=== PATIENT | female | born 1985 | race Caucasian/White ===

== ENCOUNTER → 2016-11-13 | Outpatient (CLI) | payer OTHER ==
[~2016-11-13] MED LIST: IMT100 PO; OMEP20CA9 PO; TOPI200T20 PO; ULT/50 PO; VERA1TAB52 PO
--- NOTE | 2016-11-13 09:49 | DIAGNOSTIC IMAGING REPORT ---
MRI OF THE RIGHT ANKLE CLINICAL HISTORY: Right ankle twisting injury. COMPARISON STUDY: Radiographs of the right ankle dated 01/21/2007. TECHNIQUE: MRI of the right ankle was performed utilizing various T1 and T2-weighted sequences in the axial, sagittal, and coronal planes. IV contrast was not administered for this examination. Note that interpretation is suboptimal without current plain film correlate. FINDINGS: Normal marrow signal intensity is preserved throughout the visualized bony structures. There is no MRI evidence of fracture. There is no osteochondral defect seen in the talar dome. No joint effusion is seen. There is maintenance of normal fat within the sinus tarsi. The Achilles tendon is normal in morphology and signal intensity. There is trace fluid seen around the Achilles tendon. The anterior, posterior, and peroneal tendons are preserved. There is age indeterminant tearing of the anterior tibiofibular and anterior talofibular ligaments. Mild soft tissue edema is seen overlying the lateral aspect of the ankle. Visualized portions of the plantar fascia are normal in morphology and signal intensity. The deltoid and spring ligaments are normal as imaged. A tiny bone island is incidentally noted in the talus. IMPRESSION: 1. There is age indeterminant tearing of the anterior tibiofibular and anterior talofibular ligaments. Correlate clinically for evidence of high ankle sprain. Mild overlying soft tissue edema is noted. 2. The Achilles tendon is normal in morphology and signal intensity. There is trace fluid around the distal Achilles tendon suggesting mild paratenonitis. Clinical correlation will be required. 3. There is no MRI evidence of fracture. Dictated: 11/13/2016 9:08 AM Transcribed: 11/13/2016 9:49 AM Rebeca Electronically signed by: Oziel Pineda M.D. 11/13/2016 9:54 AM Dictated Date/Time: 11/13/2016 9:08 AM
== END | disposition home or self-care (01) ==
LOC: C.MRI 07:28
PROVIDERS: ATTEND Podiatrist Foot & Ankle Surgery
DX: S93.402D Sprain of unspecified ligament of left ankle, subsequent encounter (principal); X58.XXXD Exposure to other specified factors, subsequent encounter

== ENCOUNTER → 2017-10-16 | Outpatient (CLI) | payer OTHER | END | disposition home or self-care (01) | LOC: C.LABSPEC 17:28 | PROVIDERS: ATTEND Internal Medicine | DX: J02.9 Acute pharyngitis, unspecified (principal) ==

== ENCOUNTER 2021-02-07 19:54 | Observation (INO) ==
[2021-02-07] MEDS ORDERED: DROPERIDOL 5 MG/2 ML VIAL IV STA (21:27)
[2021-02-07] MEDS ORDERED: diphenhydrAMINE 50 MG/ML VIAL IV STA (21:27)
[2021-02-07] MEDS ORDERED: MAGNESIUM SULFATE / D5W 1 GM/100 ML BAG IV STA (21:28)
[2021-02-07] MEDS ORDERED: SODIUM CHLORIDE 0.9% 1000ML 1,000 ML IV ONE (21:28)
[2021-02-07] MEDS ORDERED: ACETAMINOPHEN 1,000 MG/100 ML VIAL IV STA (21:28)
[2021-02-07 22:11] LABS: Basophils # (auto) 0.01 K/uL (0-0.2); Basophils % (auto) 0.1 %; Eosinophils # (auto) 0.22 K/uL (0-0.5); Eosinophils % (auto) 2.7 %; Hematocrit (blood only) 37.3 % (37-47); Hemoglobin 11.6 g/dL (12.0-16.0); Immature Granulocytes # (auto) 0.02 K/uL (0.00-0.02); Immature Granulocytes % (auto) 0.2 %; Lymphocytes # (auto) 2.23 K/uL (1.2-3.4); Lymphocytes % (auto) 27.3 %; Mean Corpuscular Hemoglobin 23.6 pg (25-34); Mean Corpuscular Hgb Conc 31.1 g/dL (32-36); Mean Corpuscular Volume 75.8 fL (80-100); Mean Platelet Volume 10.2 fL (7.4-10.4); Monocytes # (auto) 0.57 K/uL (0.11-0.59); Neutrophils # (auto) 5.13 K/uL (1.4-6.5); Neutrophils % (auto) 62.7 %; Platelet Count 356 K/uL (130-400); RDW Coefficient of Variation 16.7 % (11.5-14.5); RDW Standard Deviation 46.9 fL (36.4-46.3); Red Blood Count 4.92 M/uL (4.2-5.4); White Blood Count 8.18 K/uL (4.8-10.8)
[2021-02-07 22:24] LABS: Pregnancy Test, Serum Negative (Negative)
[2021-02-07 22:35] LABS: Albumin Level 3.6 gm/dl (3.4-5.0); BUN Creatinine Ratio 11.3 (10-20); Calcium 8.6 mg/dl (8.5-10.1); Creatinine Clr Calc Pharmacy 105.3 ml/min; Est GFR (Non-African American) 70.7 ml/min; Potassium 3.2 mmol/L (3.5-5.1)
[2021-02-07 22:41] LABS: Appearance Urine Cloudy (Clear); Bacteria Urine Automated 1+ (Negative); Bilirubin Urine Negative (Negative); Blood Urine Negative (Negative); Color Urine Yellow; Epithelial Cell Urine Auto >30 /lpf (0-5); Glucose Urine UA Negative (Negative); Ketones Urine Trace (Negative); Leukocyte Esterase Urine Trace (Negative); Nitrite Urine Negative (Negative); Protein Urine Negative (Negative); Specific Gravity Urine 1.021 (1.000-1.030); Urobilinogen Urine Negative (Negative); WBC Urine Automated >30 /hpf (0-5)
[2021-02-07] MEDS ORDERED: HYDROmorphone INJ 1 MG/ML SYRINGE IV PRN (22:45)
[2021-02-07 22:53] LABS: Albumin Globulin Ratio 0.9 (0.9-2); Bilirubin,Total 0.2 mg/dl (0.2-1); Globulin 3.8 gm/dl (2.5-4.0); Total Protein 7.4 gm/dl (6.4-8.2)
[2021-02-07] MEDS ORDERED: OPTIRAY 320 100ml IV ONE (22:53)
[2021-02-07 23:00] LABS: RBC Urine Automated 0-4 /hpf (0-4)
[2021-02-07] MEDS ORDERED: POTASSIUM CHLORIDE CRTAB 20 MEQ TABCR PO STA (23:11)
[2021-02-07] MEDS ORDERED: cefTRIAXone SODIUM 2,000 MG/70 ML BAG IV STA (23:11)
[2021-02-07] MEDS ORDERED: ONDANSETRON INJ 2 MG/ML 2 ML VIAL IV STA (23:12)
--- NOTE | 2021-02-08 00:40 | Emergency Department Note ---
Impression & Plan Intractable right upper quadrant abdominal pain ED Provider Note NAME: ERIBERTO SOL AGE: 35 SEX: F : 1985 ARRIVES VIA: Walk-In INFORMANT: Patient, ED PROVIDER(S): Abram Gifford MD CHIEF COMPLAINT: Right upper quadrant pain HPI: This is a 35-year-old female who presents emergency department complaining of right upper quadrant abdominal pain. The patient was here proximally 1 week ago and had a CAT scan the abdomen pelvis. She was following this up with a right upper quadrant abdominal ultrasound today. The patient reports that she has had consistent unremitting right upper quadrant abdominal pain since 1 week ago. She has been taking oxycodone without relief of the pain. She describes the pain as a burning sensation. With radiation into her back. ROS: See above HPI for pertinent positives & negatives. A total of 10 systems reviewed and were otherwise negative. PAST MEDICAL HISTORY: See Below PAST SURGICAL HISTORY: See Below FAMILY HISTORY: See Below SOCIAL HISTORY: See Below HOME MEDICATIONS: See Below ALLERGIES: See Below VITALS: See Below PHYSICAL EXAMINATION: VITAL SIGNS - Vital signs and nursing notes were reviewed. GENERAL - 35-year-old female appearing stated age who is in no acute distress. Communicates well with provider and answers questions appropriately. SKIN - Without rashes. HEAD - NC/AT. EYES - PERRL with EOMI bilaterally. Sclera anicteric. Palpebral conjunctiva pink and moist with no injection noted. EARS - No deformities of external structures noted on gross examination bilaterally. NOSE - Midline and without cyanosis. No epistaxis or purulent drainage noted. Septum midline without deviation or septal hematoma noted. MOUTH/OROPHARYNX - Without perioral cyanosis. Buccal mucosa pink and moist and without leukoplakia. Tongue midline with equal elevation of palate bilaterally. No tonsillar hypertrophy, erythema, or exudates noted. NECK - Neck with FROM. Supple to palpation. No nuchal rigidity. LUNGS - Chest wall symmetric without accessory muscle use, intercostals retractions, or central cyanosis. Normal vesicular breath sounds CTA B/L. No wheezes, rales, or rhonchi appreciated. CARDIAC - RRR with S1/S2. No murmur, rubs, or gallops appreciated. ABDOMEN - Abdominal contour BS normoactive all four quadrants. Pt c/o RUQ abd pain EXTREMITIES - No clubbing or peripheral cyanosis. No pretibial edema present. +3/5 radial, posterior tibial, and dorsalis pedis pulses palpated throughout. +5/5 strength noted in UE/LE bilaterally. NEUROLOGIC - Cranial nerves II through XII grossly intact. Sensory intact to light touch throughout. Patellar reflexes +2/4. PSYCH - A&Ox3 and cooperates fully with examiner. Pt is very pleasant and interacts well with examiner. MEDICAL DECISION MAKING: Patient was seen and evaluated as above in room A4. Review was performed of nursing notes and vital signs. I did review pertinent previous visits and patient history. After obtaining a thorough history and physical examination the above work up was performed. This is a 35-year-old female who presents emergency department complaining of right upper quadrant abdominal pain. Patient is tender in the right upper quadrant. She was sent here by her PCP. She was given Dilaudid here for her pain. She does not have an elevation in her white blood cell count. I did discuss the case with the hospitalist service who did agree to admit the patient. Patient and mother in agreement with treatment plan. An order was placed for continuous cardiac monitoring. The monitor shows a rate of 61 with Normal SInus rhythm. The patient was evaluated during a period of high volume and high acuity during the global COVID-19 pandemic, and that diagnosis was suspected/considered upon their initial presentation. Their evaluation, treatment and testing was consistent with current guidelines for patients who present with complaints or symptoms that may be related to COVID-19. Patient was seen while provider was wearing PPE. Triage Nursing notes reviewed. Prior medical records reviewed Vital Signs: reviewed and remarkable for no significant abnormalities Differential diagnosis: Appendicitis, ovarian cyst, ovarian torsion, ectopic , TOA, PID, infections, diverticulitis, UTI, obstruction, mesenteric ischemia, aortic pathology, inflammatory bowel disease, renal colic, PUD, pancreatitis, biliary pathology, hernia, volvulus, constipation, as well as other pathologies. ER treatment provided: See below Laboratory studies: As stated above and show below. Imaging studies: CT abdomen pelvis with contrast: Normal appendix. No acute abnormality along the GI tract. Hepatic steatosis and hepatomegaly. Gallbladder pancreas and spleen are unremarkable. No renal or ureteral stones. Right ovarian cyst measuring 2.5 cm trace physiologic free fluid. Consultation(s): Internal Medicine Past Med/Surg History Medical History Esophageal reflux Kidney stones Migraine headache Migraine without aura, not intractable, without status migrainosus Surgical History History of adenoidectomy History of ankle surgery History of esophagogastroduodenoscopy S/P colonoscopy S/P tonsillectomy S/P tooth extraction Family History Father No family history of bleeding disorder ? of bleeding disorder. Also had to have nose cauterized in the past Mother Asthma Grandfather (Paternal) Hypertension Grandmother (Paternal) Hypertension Breast cancer Paternal great grandmother Heart disease Grandfather (Paternal) Stroke Paternal great grandfather Family/Other Heart disease Paternal niece Other No family history of adverse response to anesthesia No pertinent family history Social History Smoking Status: Never smoker Second Hand Exposure: Yes; Hx Alcohol Use: Yes Alcohol Intake Frequency: Monthly or Less Hx Substance Use: No Preferred Language: Lao Communication Ability: Effective Point Of [employer] Associate Required: No Beliefs That Will Affect Care: None marital status: Single Current Living Situation: Alone current occupational status: employed 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[employer] [facility] Feels Safe at Home: Yes Assistive Devices: None Allergies Allergies Allergy/AdvReac Type Severity Reaction Status Date / Time pregabalin [From Lyrica] Allergy Intermediate Hives Verified 02/07/21 21:54 codeine AdvReac Intermediate Nausea Verified 02/10/21 10:42 Root Beer Flavor Allergy Severe Severe Uncoded 02/07/21 21:54 oropharyngeal hives Home Meds Home Medications Medication Instructions Recorded Confirmed omeprazole 20 mg PO DAILY 10/14/18 02/07/21 ferrous sulfate 325 mg (65 mg 325 mg PO DAILY #30 tab 05/10/19 02/07/21 iron) tablet nabumetone 500 mg tablet 500 mg PO BID PRN #60 tab 05/10/19 02/07/21 Reyvow 100 mg PO DIRECTED PRN 02/01/21 02/07/21 Previous Rx's Medication Instructions Recorded tramadol 50 mg tablet 50 mg PO BID PRN 30 Days #10 tab 12/03/19 sumatriptan succinate 4 mg/0.5 mL 4 mg SUBCUT ONCE PRN #1 ml 07/26/20 subcutaneous pen injector doxepin 100 mg capsule 100 mg PO DAILY #30 cap 08/10/20 albuterol sulfate 90 mcg/actuation 2 puff INHALATION Q6H PRN #8.5 g 09/01/20 aerosol inhaler jnuanrfthu-tsdlhjqendolx-xycvjian 1 - 2 tab PO .COMPLEX PRN 30 Days 09/27/20 50 mg-325 mg-40 mg tablet #12 tab promethazine 25 mg tablet 25 mg PO TID PRN 30 Days #30 tab 09/27/20 fremanezumab-vfrm 225 mg/1.5 mL 675 mg SQ .COMPLEX 90 Days #4.5 ml 10/08/20 subcutaneous syringe hydrochlorothiazide 25 mg tablet 25 mg PO DAILY #30 tab 10/20/20 mupirocin 2 % topical ointment 1 applic TOPICAL BID #15 g 10/28/20 labetalol 100 mg tablet 100 mg PO BID #60 tab 12/01/20 doxepin 50 mg capsule 50 mg PO DAILY #30 cap 12/20/20 ondansetron HCl [Zofran] 4 mg PO Q6H PRN #10 tab 02/02/21 oxycodone 5 mg PO Q6 PRN #7 tab 02/02/21 potassium chloride 20 meq PO DAILY #7 tab 02/02/21 topiramate 200 mg tablet 200 mg PO BID 30 Days #60 tab 02/07/21 verapamil 240 mg tablet,extended 240 mg PO QAM 30 Days #30 tab 02/07/21 release oxycodone-acetaminophen 1 tab PO Q6H PRN #20 tab 02/11/21 Results & Data (ED) Vital Signs Vital Signs - 24 hr 02/07/21 19:55 02/07/21 21:27 02/07/21 21:54 Temperature 36.6 C Temperature Source Temporal Artery Scan Pulse Rate 79 Pulse Rate [Apical] Pulse Rate from SpO2 Sensor Pulse Rhythm [Apical] Respiratory Rate 16 18 Respiratory Depth Normal Blood Pressure 152/77 H Blood Pressure [Right Arm] 145/78 H Blood Pressure Mean 102 Blood Pressure Mean [Right Arm] 100 Blood Pressure Position Lying Pulse Oximetry 100 98 Oxygen Delivery Method Room Air Room Air Room Air Sepsis Recent Fever Within 48 Hours No Sepsis New/Unexplained Change in Mental Status No Sepsis Action Taken by Nursing No Action Required 02/07/21 23:30 02/07/21 23:50 02/08/21 00:00 Temperature Temperature Source Pulse Rate 61 60 Pulse Rate [Apical] 65 Pulse Rate from SpO2 Sensor 59 L 61 Pulse Rhythm [Apical] Regular Respiratory Rate 20 16 17 Respiratory Depth Normal Blood Pressure 123/66 120/77 Blood Pressure [Right Arm] 123/66 Blood Pressure Mean 85 91 Blood Pressure Mean [Right Arm] 85 Blood Pressure Position Pulse Oximetry 93 96 96 Oxygen Delivery Method Room Air Sepsis Recent Fever Within 48 Hours Sepsis New/Unexplained Change in Mental Status Sepsis Action Taken by Nursing Laboratory Data Result diagrams: 02/10/21 06:14 02/10/21 06:14 Lab Results 02/07/21 02/07/21 02/07/21 Range/Units 20:55 20:55 20:55 WBC 8.18 (4.8-10.8) K/uL RBC 4.92 (4.2-5.4) M/uL Hgb 11.6 L (12.0-16.0) g/dL Hct 37.3 (37-47) % MCV 75.8 L (80-100) fL MCH 23.6 L (25-34) pg MCHC 31.1 L (32-36) g/dL RDW Std Deviation 46.9 H (36.4-46.3) fL RDW Coeff of [place] 16.7 H (11.5-14.5) % Plt Count 356 (130-400) K/uL MPV 10.2 (7.4-10.4) fL Immature Gran % (Auto) 0.2 % Neut % (Auto) 62.7 % Lymph % (Auto) 27.3 % [place] % (Auto) 7.0 % Eos % (Auto) 2.7 % Baso % (Auto) 0.1 % Neut # (Auto) 5.13 (1.4-6.5) K/uL Lymph # (Auto) 2.23 (1.2-3.4) K/uL [place] # (Auto) 0.57 (0.11-0.59) K/uL Eos # (Auto) 0.22 (0-0.5) K/uL Baso # (Auto) 0.01 (0-0.2) K/uL Immature Gran # (Auto) 0.02 (0.00-0.02) K/uL Sodium 141 (136-145) mmol/L Potassium 3.2 L (3.5-5.1) mmol/L Chloride 108 H (98-107) mmol/L Carbon Dioxide 25 (21-32) mmol/L Anion Gap 8.0 (3-11) BUN 12 (7-18) mg/dl Creatinine 1.02 (0.6-1.2) mg/dl Est Cr Clr Drug Dosing 105.3 ml/min Est GFR ( Amer) 82.0 ml/min Est GFR (Non-Af Amer) 70.7 ml/min BUN/Creatinine Ratio 11.3 (10-20) Glucose 91 (70-99) mg/dl Calcium 8.6 (8.5-10.1) mg/dl Total Bilirubin 0.2 (0.2-1) mg/dl AST 26 (15-37) U/L ALT 35 (12-78) U/L Alkaline Phosphatase 71 (45-117) U/L Total Protein 7.4 (6.4-8.2) gm/dl Albumin 3.6 (3.4-5.0) gm/dl Globulin 3.8 (2.5-4.0) gm/dl Albumin/Globulin Ratio 0.9 (0.9-2) Lipase 110 (73-393) U/L HCG, Qual Negative (Negative) Urine Color Urine Appearance (Clear) Urine pH (4.5-7.5) Ur Specific [place] (1.000-1.030) Urine Protein (Negative) Urine Glucose (UA) (Negative) Urine Ketones (Negative) Urine Blood (Negative) Urine Nitrite (Negative) Urine Bilirubin (Negative) Urine Urobilinogen (Negative) Ur Leukocyte Esterase (Negative) Urine WBC (Auto) (0-5) /hpf Urine RBC (Auto) (0-4) /hpf U Hyaline Cast (Auto) (0-5) /lpf U Epithel Cells (Auto) (0-5) /lpf Urine Bacteria (Auto) (Negative) Urine Yeast COVID-19 Eval Order SARS-CoV-2 (PCR) (Negative) 02/07/21 02/07/21 02/07/21 Range/Units 20:55 23:25 23:25 WBC (4.8-10.8) K/uL RBC (4.2-5.4) M/uL Hgb (12.0-16.0) g/dL Hct (37-47) % MCV (80-100) fL MCH (25-34) pg MCHC (32-36) g/dL RDW Std Deviation (36.4-46.3) fL RDW Coeff of [place] (11.5-14.5) % Plt Count (130-400) K/uL MPV (7.4-10.4) fL Immature Gran % (Auto) % Neut % (Auto) % Lymph % (Auto) % [place] % (Auto) % Eos % (Auto) % Baso % (Auto) % Neut # (Auto) (1.4-6.5) K/uL Lymph # (Auto) (1.2-3.4) K/uL [place] # (Auto) (0.11-0.59) K/uL Eos # (Auto) (0-0.5) K/uL Baso # (Auto) (0-0.2) K/uL Immature Gran # (Auto) (0.00-0.02) K/uL Sodium (136-145) mmol/L Potassium (3.5-5.1) mmol/L Chloride (98-107) mmol/L Carbon Dioxide (21-32) mmol/L Anion Gap (3-11) BUN (7-18) mg/dl Creatinine (0.6-1.2) mg/dl Est Cr Clr Drug Dosing ml/min Est GFR ( Amer) ml/min Est GFR (Non-Af Amer) ml/min BUN/Creatinine Ratio (10-20) Glucose (70-99) mg/dl Calcium (8.5-10.1) mg/dl Total Bilirubin (0.2-1) mg/dl AST (15-37) U/L ALT (12-78) U/L Alkaline Phosphatase (45-117) U/L Total Protein (6.4-8.2) gm/dl Albumin (3.4-5.0) gm/dl Globulin (2.5-4.0) gm/dl Albumin/Globulin Ratio (0.9-2) Lipase (73-393) U/L HCG, Qual (Negative) Urine Color Yellow Urine Appearance Cloudy A (Clear) Urine pH 7.0 (4.5-7.5) Ur Specific [place] 1.021 (1.000-1.030) Urine Protein Negative (Negative) Urine Glucose (UA) Negative (Negative) Urine Ketones Trace H (Negative) Urine Blood Negative (Negative) Urine Nitrite Negative (Negative) Urine Bilirubin Negative (Negative) Urine Urobilinogen Negative (Negative) Ur Leukocyte Esterase Trace H (Negative) Urine WBC (Auto) >30 H (0-5) /hpf Urine RBC (Auto) 0-4 (0-4) /hpf U Hyaline Cast (Auto) 1-5 (0-5) /lpf U Epithel Cells (Auto) >30 H (0-5) /lpf Urine Bacteria (Auto) 1+ H (Negative) Urine Yeast Not Reportable COVID-19 Eval Order Covid19 at [facility] SARS-CoV-2 (PCR) NEGATIVE (Negative) 02/09/21 02/09/21 Range/Units 06:34 06:34 WBC 5.77 (4.8-10.8) K/uL RBC 4.29 (4.2-5.4) M/uL Hgb 10.2 L (12.0-16.0) g/dL Hct 32.8 L (37-47) % MCV 76.5 L (80-100) fL MCH 23.8 L (25-34) pg MCHC 31.1 L (32-36) g/dL RDW Std Deviation 47.4 H (36.4-46.3) fL RDW Coeff of [place] 16.9 H (11.5-14.5) % Plt Count 253 (130-400) K/uL MPV 9.7 (7.4-10.4) fL Immature Gran % (Auto) 0.2 % Neut % (Auto) 53.4 % Lymph % (Auto) 36.7 % [place] % (Auto) 6.9 % Eos % (Auto) 2.6 % Baso % (Auto) 0.2 % Neut # (Auto) 3.08 (1.4-6.5) K/uL Lymph # (Auto) 2.12 (1.2-3.4) K/uL [place] # (Auto) 0.40 (0.11-0.59) K/uL Eos # (Auto) 0.15 (0-0.5) K/uL Baso # (Auto) 0.01 (0-0.2) K/uL Immature Gran # (Auto) 0.01 (0.00-0.02) K/uL Sodium 146 H (136-145) mmol/L Potassium 4.3 D (3.5-5.1) mmol/L Chloride 120 H (98-107) mmol/L Carbon Dioxide 19 L (21-32) mmol/L Anion Gap 7.0 (3-11) BUN 9 (7-18) mg/dl Creatinine 0.85 (0.6-1.2) mg/dl Est Cr Clr Drug Dosing 126.3 ml/min Est GFR ( Amer) 102.2 ml/min Est GFR (Non-Af Amer) 88.2 ml/min BUN/Creatinine Ratio 10.2 (10-20) Glucose 83 (70-99) mg/dl Calcium 7.6 L (8.5-10.1) mg/dl Total Bilirubin 0.2 (0.2-1) mg/dl AST 16 (15-37) U/L ALT 26 (12-78) U/L Alkaline Phosphatase 55 (45-117) U/L Total Protein 5.8 L D (6.4-8.2) gm/dl Albumin 2.9 L (3.4-5.0) gm/dl Globulin 2.9 (2.5-4.0) gm/dl Albumin/Globulin Ratio 1.0 (0.9-2) Lipase (73-393) U/L HCG, Qual (Negative) Urine Color Urine Appearance (Clear) Urine pH (4.5-7.5) Ur Specific [place] (1.000-1.030) Urine Protein (Negative) Urine Glucose (UA) (Negative) Urine Ketones (Negative) Urine Blood (Negative) Urine Nitrite (Negative) Urine Bilirubin (Negative) Urine Urobilinogen (Negative) Ur Leukocyte Esterase (Negative) Urine WBC (Auto) (0-5) /hpf Urine RBC (Auto) (0-4) /hpf U Hyaline Cast (Auto) (0-5) /lpf U Epithel Cells (Auto) (0-5) /lpf Urine Bacteria (Auto) (Negative) Urine Yeast COVID-19 Eval Order SARS-CoV-2 (PCR) (Negative) Administered Medications Discontinued Medications Bacitracin (Bacitracin Oint 15 Gm Tube) Confirm Administered Dose 45 appln .ROUTE .STK-MED ONE Stop: 02/10/21 07:22 Last Admin: 02/10/21 08:24 Dose: 45 appln Documented by: [id number] Bupivacaine HCl (Bupivacaine 0.5 % 5 Mg/1 Ml Mpf 30ml Vial) Confirm Administered Dose 30 ml .ROUTE .STK-MED ONE Stop: 02/10/21 07:22 Last Admin: 02/10/21 08:25 Dose: 20 ml Documented by: [id number] Cefazolin Sodium (Cefazolin 2,000 Mg/15 Ml Iv Push) Confirm Administered Dose 2,000 mg IV .STK-MED ONE Stop: 02/10/21 07:36 Last Admin: 02/10/21 07:46 Dose: 2,000 mg Documented by: [id number] Diphenhydramine HCl (Diphenhydramine 50 Mg/Ml Vial) 50 mg IV NOW STA Stop: 02/07/21 21:28 Last Admin: 02/07/21 21:46 Dose: 50 mg Documented by: [id number] Doxepin HCl (Doxepin Hcl 50 Mg Capsule) 150 mg PO DAILY MEKA Stop: 03/10/21 08:59 Last Admin: 02/08/21 08:38 Dose: Not Given Documented by: [id number] Doxepin HCl (Doxepin Hcl 50 Mg Capsule) 150 mg PO HS MEKA Stop: 03/10/21 20:59 Last Admin: 02/10/21 21:23 Dose: 150 mg Documented by: [id number] Admin: 02/09/21 21:36 Dose: 150 mg Documented by: [id number] Admin: 02/08/21 20:31 Dose: 150 mg Documented by: [id number] Droperidol (Droperidol 5 Mg/2 Ml Vial) 1.25 mg IV ONE STA Stop: 02/07/21 21:28 Last Admin: 02/07/21 21:46 Dose: 1.25 mg Documented by: [id number] Fentanyl Citrate (Fentanyl Citrate 100 Mcg/2 Ml Vial) 50 mcg IV Q5M PRN PRN Reason: PACU Use Only-Pain Stop: 02/10/21 15:46 Last Admin: 02/10/21 09:52 Dose: 50 mcg Documented by: [id number] Ferrous Sulfate (Ferrous Sulfate 325 Mg Tab) 325 mg PO DAILY MEKA Stop: 03/13/21 08:59 Last Admin: 02/11/21 08:53 Dose: 325 mg Documented by: [id number] Hydrochlorothiazide (Hydrochlorothiazide 25 Mg Tab) 25 mg PO DAILY MEKA Stop: 03/13/21 08:59 Last Admin: 02/11/21 08:53 Dose: 25 mg Documented by: [id number] Hydromorphone HCl (Hydromorphone Inj 1 Mg/Ml Syringe) 1 mg IV Q15M PRN PRN Reason: Pain Stop: 02/21/21 22:44 Last Admin: 02/07/21 23:09 Dose: 1 mg Documented by: [id number] Magnesium Sulfate/Dextrose (Magnesium Sulfate / D5w) 1 gm in 100 mls @ 100 mls/hr IV NOW STA Stop: 02/07/21 22:27 Last Infusion: 02/07/21 22:51 Dose: 0 mls/hr Documented by: [id number] Admin: 02/07/21 21:46 Dose: 100 mls/hr Documented by: [id number] Acetaminophen (Ofirmev) 1,000 mg in 100 mls @ 400 mls/hr IV NOW STA Stop: 02/07/21 21:42 Last Infusion: 02/07/21 22:51 Dose: 0 mls/hr Documented by: [id number] Admin: 02/07/21 21:46 Dose: 400 mls/hr Documented by: [id number] Sodium Chloride (Nss 1000ml) 1,000 mls @ 999 mls/hr IV .Q1H1M ONE Stop: 02/07/21 22:28 Last Infusion: 02/07/21 22:52 Dose: 0 mls/hr Documented by: [id number] Admin: 02/07/21 21:45 Dose: 999 mls/hr Documented by: [id number] Ceftriaxone Sodium (Rocephin) 2,000 mg in 70 mls @ 140 mls/hr IV NOW STA Stop: 02/07/21 23:40 Last Infusion: 02/08/21 00:11 Dose: 0 mls/hr Documented by: [id number] Admin: 02/07/21 23:35 Dose: 140 mls/hr Documented by: [id number] Potassium Chloride/Sodium Chloride (Normal Saline W/20 Meq Kcl) 20 meq in 1,000 mls @ 125 mls/hr IV .Q8H MEKA Stop: 03/10/21 01:29 Last Infusion: 02/11/21 07:09 Dose: 0 mls/hr Documented by: [id number] Infusion: 02/09/21 16:44 Dose: 0 mls/hr Documented by: [id number] Infusion: 02/09/21 15:45 Dose: 0 mls/hr Documented by: [id number] Admin: 02/09/21 11:23 Dose: 125 mls/hr Documented by: [id number] Infusion: 02/09/21 11:23 Dose: 125 mls/hr Documented by: [id number] Admin: 02/09/21 09:48 Dose: 125 mls/hr Documented by: [id number] Infusion: 02/09/21 09:48 Dose: 0 mls/hr Documented by: [id number] Infusion: 02/09/21 08:45 Dose: 0 mls/hr Documented by: [id number] Admin: 02/09/21 02:48 Dose: 125 mls/hr Documented by: [id number] Infusion: 02/09/21 02:40 Dose: 0 mls/hr Documented by: [id number] Admin: 02/08/21 19:17 Dose: 125 mls/hr Documented by: [id number] Infusion: 02/08/21 19:17 Dose: 125 mls/hr Documented by: [id number] Admin: 02/08/21 11:48 Dose: 125 mls/hr Documented by: [id number] Infusion: 02/08/21 11:02 Dose: 125 mls/hr Documented by: [id number] Admin: 02/08/21 03:02 Dose: 125 mls/hr Documented by: [id number] Famotidine 20 mg/ Syringe 5 mls @ 2.5 mls/min IV Q12H MEKA Stop: 03/10/21 02:59 Last Admin: 02/11/21 05:21 Dose: 2.5 mls/min Documented by: [id number] Admin: 02/10/21 17:54 Dose: 2.5 mls/min Documented by: [id number] Admin: 02/10/21 05:47 Dose: 2.5 mls/min Documented by: [id number] Admin: 02/09/21 18:32 Dose: 2.5 mls/min Documented by: [id number] Admin: 02/09/21 05:57 Dose: 2.5 mls/min Documented by: [id number] Admin: 02/08/21 18:30 Dose: 2.5 mls/min Documented by: [id number] Admin: 02/08/21 03:03 Dose: 2.5 mls/min Documented by: [id number] Cefazolin Sodium (Ancef 3000mg) 72.5 mls @ 130 mls/hr IV PREOP ONE Stop: 02/10/21 08:06 Last Admin: 02/10/21 17:47 Dose: Not Given Documented by: [id number] Cefazolin Sodium (Ancef 1000mg) 1,000 mg in 7.5 mls @ 2.5 mls/min IV ONE ONE Stop: 02/10/21 11:02 Last Admin: 02/10/21 12:09 Dose: 2.5 mls/min Documented by: [id number] Lactated Ringer's (Lr) 1,000 mls @ 80 mls/hr IV .[id number] MEKA Stop: 02/10/21 23:29 Last Infusion: 02/11/21 02:07 Dose: 0 mls/hr Documented by: [id number] Admin: 02/10/21 13:18 Dose: 80 mls/hr Documented by: [id number] Ioversol (Optiray 320 100ml) 88 ml IV ONCE ONE Stop: 02/07/21 22:54 Last Admin: 02/07/21 22:53 Dose: 1 ml Documented by: [id number] Labetalol HCl (Labetalol Hcl 100 Mg Tab) 100 mg PO BID MEKA Stop: 03/10/21 08:59 Last Admin: 02/11/21 08:53 Dose: Not Given Documented by: [id number] Admin: 02/10/21 21:24 Dose: 100 mg Documented by: [id number] Admin: 02/10/21 12:07 Dose: 100 mg Documented by: [id number] Admin: 02/09/21 21:37 Dose: 100 mg Documented by: [id number] Admin: 02/09/21 10:34 Dose: 100 mg Documented by: [id number] Admin: 02/08/21 20:32 Dose: 100 mg Documented by: [id number] Admin: 02/08/21 08:36 Dose: 100 mg Documented by: [id number] Lidocaine HCl (Lidocaine Hcl 1% 20 Ml Vial) Confirm Administered Dose 20 ml .ROUTE .STK-MED ONE Stop: 02/10/21 07:22 Last Admin: 02/10/21 08:25 Dose: 20 ml Documented by: [id number] Morphine Sulfate (Morphine Sulfate 4 Mg/Ml 1 Ml Carp\Vial) 4 mg IV Q4H PRN PRN Reason: Severe Pain Stop: 02/23/21 16:38 Last Admin: 02/11/21 08:08 Dose: 4 mg Documented by: [id number] Admin: 02/11/21 00:34 Dose: 4 mg Documented by: [id number] Admin: 02/10/21 20:35 Dose: 4 mg Documented by: [id number] Admin: 02/10/21 16:33 Dose: 4 mg Documented by: [id number] Admin: 02/10/21 12:16 Dose: 4 mg Documented by: [id number] Admin: 02/10/21 01:56 Dose: 4 mg Documented by: [id number] Admin: 02/09/21 21:37 Dose: 4 mg Documented by: [id number] Admin: 02/09/21 17:36 Dose: 4 mg Documented by: [id number] Mupirocin (Mupirocin 2% Oint 22 Gm Tube) 1 appln EXT BID MEKA Stop: 03/12/21 20:59 Last Admin: 02/11/21 08:54 Dose: 1 appln Documented by: [id number] Admin: 02/10/21 21:24 Dose: 1 appln Documented by: [id number] Ondansetron HCl (Ondansetron Inj 2 Mg/Ml 2 Ml Vial) 4 mg IV NOW STA Stop: 02/07/21 23:13 Last Admin: 02/07/21 23:36 Dose: 4 mg Documented by: [id number] Ondansetron HCl (Ondansetron Inj 2 Mg/Ml 2 Ml Vial) 4 mg IV Q6H PRN PRN Reason: Nausea Stop: 03/10/21 02:09 Last Admin: 02/08/21 22:01 Dose: 4 mg Documented by: [id number] Admin: 02/08/21 15:45 Dose: 4 mg Documented by: [id number] Admin: 02/08/21 02:31 Dose: 4 mg Documented by: [id number] Ondansetron HCl (Ondansetron Inj 2 Mg/Ml 2 Ml Vial) 4 mg IV Q4H PRN PRN Reason: Nausea Stop: 03/10/21 02:09 Last Admin: 02/11/21 08:11 Dose: 4 mg Documented by: [id number] Admin: 02/11/21 00:34 Dose: 4 mg Documented by: [id number] Admin: 02/10/21 20:36 Dose: 4 mg Documented by: [id number] Admin: 02/10/21 16:32 Dose: 4 mg Documented by: [id number] Admin: 02/10/21 12:03 Dose: 4 mg Documented by: [id number] Admin: 02/10/21 01:56 Dose: 4 mg Documented by: [id number] Admin: 02/09/21 21:38 Dose: 4 mg Documented by: [id number] Ondansetron HCl (Ondansetron Inj 2 Mg/Ml 2 Ml Vial) 4 mg IV ONCE PRN PRN Reason: PACU Use Only-Nausea/Vomiting Stop: 02/10/21 15:46 Last Admin: 02/10/21 09:54 Dose: 4 mg Documented by: [id number] Pantoprazole Sodium (Pantoprazole 40 Mg Tab) 40 mg PO DAILY MEKA Stop: 03/13/21 08:59 Last Admin: 02/11/21 08:54 Dose: 40 mg Documented by: [id number] Potassium Chloride (Potassium Chloride Crtab 20 Meq Tabcr) 40 meq PO NOW STA Stop: 02/07/21 23:12 Last Admin: 02/07/21 23:36 Dose: 40 meq Documented by: [id number] Potassium Chloride (Potassium Chloride Crtab 20 Meq Tabcr) 20 meq PO DAILY MEKA Stop: 03/13/21 08:59 Last Admin: 02/11/21 08:54 Dose: 20 meq Documented by: [id number] Topiramate (Topiramate 100 Mg Tab) 200 mg PO BID MEKA Stop: 03/10/21 08:59 Last Admin: 02/11/21 08:54 Dose: 200 mg Documented by: [id number] Admin: 02/10/21 21:22 Dose: 200 mg Documented by: [id number] Admin: 02/10/21 12:08 Dose: 200 mg Documented by: [id number] Admin: 02/09/21 21:36 Dose: 200 mg Documented by: [id number] Admin: 02/09/21 10:35 Dose: 200 mg Documented by: [id number] Admin: 02/08/21 20:32 Dose: 200 mg Documented by: [id number] Admin: 02/08/21 08:36 Dose: 200 mg Documented by: [id number] Tramadol HCl (Tramadol Hcl 50 Mg Tablet) 50 mg PO Q6H PRN PRN Reason: headaches Stop: 03/10/21 02:09 Last Admin: 02/10/21 05:49 Dose: 50 mg Documented by: [id number] Admin: 02/08/21 20:32 Dose: 50 mg Documented by: [id number] Admin: 02/08/21 13:47 Dose: 50 mg Documented by: [id number] Verapamil HCl (Verapamil Hcl 240 Mg Tabcr) 240 mg PO QAM [facility] Stop: 03/10/21 08:59 Last Admin: 02/11/21 08:54 Dose: 240 mg Documented by: [id number] Admin: 02/10/21 12:08 Dose: 240 mg Documented by: [id number] Admin: 02/09/21 09:46 Dose: 240 mg Documented by: [id number] Admin: 02/08/21 08:36 Dose: 240 mg Documented by: [id number] Discharge Plan Visit Data Chief Complaint: Flank Pain Stated Complaint: PAIN IN RT SIDE, HERE LAST SUNDAY ED Provider: Abram Gifford Discharge Problem: Intractable right upper quadrant abdominal pain Patient Disposition: Admitted As Inpatient Condition: Good Discharge Instructions Interventions: ED Discharge Assessment Last Done: 02/08/21 01:48
--- NOTE | 2021-02-08 01:23 | History & Physical Report ---
Date of Service February 08, 2021 Assessment & Plan (1) Right sided abdominal pain: Right upper quadrant/right flank pain/nausea- Outpatient ultrasound suggested possible gallbladder sludge. CT abdomen pelvis negative. NPO except meds NSS + KCl 20 mEq 100 mils per hour Zofran 4 mg IV every 6 hours as needed HIDA scan ordered for the a.m. to assess gallbladder dysfunction. If gallbladder work-up was negative, may need to consider endoscopy Present on Admission?: Yes (2) Nausea: See above Present on Admission?: Yes (3) Esophageal reflux: GERD/history of acute peptic ulcer- Continue omeprazole Placed on famotidine 20 mg IV every 12 hours If gallbladder work-up was negative, may need to consider endoscopy to assess for esophagitis/gastritis/PUD Present on Admission?: Yes (4) Hypertension: Continue labetalol and verapamil Present on Admission?: Yes (5) Migraine without aura, not intractable, without status migrainosus: Continue as needed Fioricet, doxepin, topiramate and sumatriptan Hold oxycodone, and nabumetone Continue verapamil Continue as needed tramadol Present on Admission?: Yes (6) Acute peptic ulcer: See above Present on Admission?: Yes (7) Asthma exacerbation attacks: No acute symptoms Present on Admission?: Yes History of Present Illness Chief Complaint: The patient presents to the emergency department with 1 week of right upper quadrant and right flank pain Primary Care Provider: Grayson Diaz MD The patient is a 35-year-old female with a past medical history including hypertension, migraine without aura, GERD, kidney stones, peptic ulcer history, asthma, asthma exacerbation attacks, morbid obesity and kidney stones. Work-up in the emergency department included the following significant abnormalities: Hemoglobin 11.6 potassium 3.2 and negative COVID-[address] of abdomen pelvis Patient had a gallbladder ultrasound performed as an outpatient on the morning of 02/07 which showed the following: Suspect a small amount of gallbladder sludge, suspected hepatic steatosis, no calculi or ductal dilatation noted. CT of abdomen and pelvis with contrast performed in ED tonight: Normal appendix, no acute abnormality along the GI tract. Noted hepatic steatosis and hepatomegaly. Gallbladder, pancreas and spleen are unremarkable. No renal or ureteral stones. Right ovarian cyst measuring 2.5 cm Allergies Allergy/AdvReac Type Severity Reaction Status Date / Time pregabalin [From Lyrica] Allergy Intermediate Hives Verified 02/07/21 21:54 Root Beer Flavor Allergy Severe Severe Uncoded 02/07/21 21:54 oropharyngeal hives Codeine Derivatives AdvReac Intermediate Nausea Uncoded 02/07/21 21:54 Home Medications Medication Instructions Recorded Confirmed Type omeprazole 20 mg PO DAILY 10/14/18 02/07/21 History ferrous sulfate 325 mg (65 mg 325 mg PO DAILY #30 tab 05/10/19 02/07/21 History iron) tablet nabumetone 500 mg tablet 500 mg PO BID PRN #60 tab 05/10/19 02/07/21 History tramadol 50 mg tablet 50 mg PO BID PRN 30 Days #10 tab 12/03/19 02/07/21 Rx sumatriptan succinate 4 mg/0.5 mL 4 mg SUBCUT ONCE PRN #1 ml 07/26/20 02/07/21 Rx subcutaneous pen injector doxepin 100 mg capsule 100 mg PO DAILY #30 cap 08/10/20 02/07/21 Rx albuterol sulfate 90 mcg/actuation 2 puff INHALATION Q6H PRN #8.5 g 09/01/20 02/07/21 Rx aerosol inhaler lltfuqgapf-yzzriyrvqzznq-sdfnzczq 1 - 2 tab PO .COMPLEX PRN 30 Days 09/27/20 02/07/21 Rx 50 mg-325 mg-40 mg tablet #12 tab promethazine 25 mg tablet 25 mg PO TID PRN 30 Days #30 tab 09/27/20 02/07/21 Rx fremanezumab-vfrm 225 mg/1.5 mL 675 mg SQ .COMPLEX 90 Days #4.5 ml 10/08/20 02/07/21 Rx subcutaneous syringe hydrochlorothiazide 25 mg tablet 25 mg PO DAILY #30 tab 10/20/20 02/07/21 Rx mupirocin 2 % topical ointment 1 applic TOPICAL BID #15 g 10/28/20 02/07/21 Rx labetalol 100 mg tablet 100 mg PO BID #60 tab 12/01/20 02/07/21 Rx doxepin 50 mg capsule 50 mg PO DAILY #30 cap 12/20/20 02/07/21 Rx lasmiditan [Reyvow] 100 mg PO DIRECTED PRN 02/01/21 02/07/21 History ondansetron HCl [Zofran] 4 mg PO Q6H PRN #10 tab 02/02/21 02/07/21 Rx oxycodone 5 mg PO Q6 PRN #7 tab 02/02/21 02/07/21 Rx potassium chloride 20 meq PO DAILY #7 tab 02/02/21 02/07/21 Rx topiramate 200 mg tablet 200 mg PO BID 30 Days #60 tab 02/07/21 02/07/21 Rx verapamil 240 mg tablet,extended 240 mg PO QAM 30 Days #30 tab 02/07/21 02/07/21 Rx release Past Med/Surg History Medical History Esophageal reflux Kidney stones Migraine headache Migraine without aura, not intractable, without status migrainosus Surgical History History of adenoidectomy History of ankle surgery History of esophagogastroduodenoscopy S/P colonoscopy S/P tonsillectomy S/P tooth extraction Family History Father No family history of bleeding disorder Mother Asthma Grandfather (Paternal) Hypertension Grandmother (Paternal) Hypertension Breast cancer Heart disease Grandfather (Paternal) Stroke Family/Other Heart disease Other No family history of adverse response to anesthesia No pertinent family history Social History Smoking Status: Never smoker Second Hand Exposure: Yes; Do You Dip or Chew Tobacco: No; Tobacco Cessation Education Requested by Patient: No Hx Alcohol Use: Yes Alcohol Intake Frequency: Monthly or Less Hx Substance Use: No Preferred Language: Slovenian Communication Ability: Effective Asphalt Blender Required: No Beliefs That Will Affect Care: None marital status: Single Current Living Situation: Alone current occupational status: employed 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 [employer] Other Information That Helps Us Care for You: No Feels Safe at Home: Yes Safety Concerns: Feels Safe At This Time Assistive Devices: Glasses Review of Systems Review of Systems: The patient denies chest pain, palpitations, shortness of breath, dyspnea on exertion, cough, lower extremity swelling, sore throat, fevers, chills, sweats, vomiting, diarrhea , constipation, blood in urine or stool, dysuria, urinary frequency or urgency, lightheadedness, dizziness, headache, memory loss, loss of consciousness, rash, abnormal bruising or bleeding, imbalance, focal or generalized weakness, numbness or tingling in arms or legs, generalized arthralgias or myalgias, back or neck pain, or night sweats. The review of systems is otherwise negative other than for that already noted above, and at least 10 systems have been reviewed. Physical Exam Physical Exam: The patient is awake, alert and oriented 3, well developed and well nourished, normocephalic and atraumatic, lying in bed and in no acute distress. HEENT--PERRL, EOMI, mucous membranes and oropharynx dry. Neck--supple. No JVD. No bruits. Thyroid normal, trachea midline, no adenopathy. Heart--normal S1 and S2. No murmurs, rubs or gallops. Lungs--clear bilaterally, no respiratory distress, no accessory muscle use. Abdomen--normal bowel sounds and soft. Mild tenderness right upper quadrant and flank. Extremities--no cyanosis or clubbing. No edema. Dermatologic--normal skin turgor, normal color, no abnormal lymph nodes, no rash. Neurologic--cranial nerves II through XII grossly intact. Rheumatologic--normal range of motion. Psychiatric--normal affect. Results & Data Results & Data ([facility]) Vital Signs (Past 12 Hours) Vital Signs Temp Pulse Pulse Resp BP BP Pulse Ox 02/08/21 00:00 60 17 120/77 96 02/07/21 23:50 65 16 123/66 96 02/07/21 23:30 61 20 123/66 93 02/07/21 21:54 18 145/78 H 98 02/07/21 19:55 97.9 F 79 16 152/77 H 100 Laboratory Results Laboratory Results WBC 8.18 K/uL (4.8-10.8) 02/07/21 20:55 RBC 4.92 M/uL (4.2-5.4) 02/07/21 20:55 Hgb 11.6 g/dL (12.0-16.0) L 02/07/21 20:55 Hct 37.3 % (37-47) 02/07/21 20:55 MCV 75.8 fL (80-100) L 02/07/21 20:55 MCH 23.6 pg (25-34) L 02/07/21 20:55 MCHC 31.1 g/dL (32-36) L 02/07/21 20:55 RDW Std Deviation 46.9 fL (36.4-46.3) H 02/07/21 20:55 RDW Coeff of Lea 16.7 % (11.5-14.5) H 02/07/21 20:55 Plt Count 356 K/uL (130-400) 02/07/21 20:55 MPV 10.2 fL (7.4-10.4) 02/07/21 20:55 Immature Gran % (Auto) 0.2 % 02/07/21 20:55 Neut % (Auto) 62.7 % 02/07/21 20:55 Lymph % (Auto) 27.3 % 02/07/21 20:55 [place] % (Auto) 7.0 % 02/07/21 20:55 Eos % (Auto) 2.7 % 02/07/21 20:55 Baso % (Auto) 0.1 % 02/07/21 20:55 Neut # (Auto) 5.13 K/uL (1.4-6.5) 02/07/21 20:55 Lymph # (Auto) 2.23 K/uL (1.2-3.4) 02/07/21 20:55 [place] # (Auto) 0.57 K/uL (0.11-0.59) 02/07/21 20:55 Eos # (Auto) 0.22 K/uL (0-0.5) 02/07/21 20:55 Baso # (Auto) 0.01 K/uL (0-0.2) 02/07/21 20:55 Immature Gran # (Auto) 0.02 K/uL (0.00-0.02) 02/07/21 20:55 Sodium 141 mmol/L (136-145) 02/07/21 20:55 Potassium 3.2 mmol/L (3.5-5.1) L 02/07/21 20:55 Chloride 108 mmol/L (98-107) H 02/07/21 20:55 Carbon Dioxide 25 mmol/L (21-32) 02/07/21 20:55 Anion Gap 8.0 (3-11) 02/07/21 20:55 BUN 12 mg/dl (7-18) 02/07/21 20:55 Creatinine 1.02 mg/dl (0.6-1.2) 02/07/21 20:55 Est Cr Clr Drug Dosing 105.3 ml/min 02/07/21 20:55 Est GFR ( Amer) 82.0 ml/min 02/07/21 20:55 Est GFR (Non-Af Amer) 70.7 ml/min 02/07/21 20:55 BUN/Creatinine Ratio 11.3 (10-20) 02/07/21 20:55 Glucose 91 mg/dl (70-99) 02/07/21 20:55 Calcium 8.6 mg/dl (8.5-10.1) 02/07/21 20:55 Total Bilirubin 0.2 mg/dl (0.2-1) 02/07/21 20:55 AST 26 U/L (15-37) 02/07/21 20:55 ALT 35 U/L (12-78) 02/07/21 20:55 Alkaline Phosphatase 71 U/L (45-117) 02/07/21 20:55 Total Protein 7.4 gm/dl (6.4-8.2) 02/07/21 20:55 Albumin 3.6 gm/dl (3.4-5.0) 02/07/21 20:55 Globulin 3.8 gm/dl (2.5-4.0) 02/07/21 20:55 Albumin/Globulin Ratio 0.9 (0.9-2) 02/07/21 20:55 Lipase 110 U/L (73-393) 02/07/21 20:55 HCG, Qual Negative (Negative) 02/07/21 20:55 Urine Color Yellow 02/07/21 20:55 Urine Appearance Cloudy (Clear) A 02/07/21 20:55 Urine pH 7.0 (4.5-7.5) 02/07/21 20:55 Ur Specific [place] 1.021 (1.000-1.030) 02/07/21 20:55 Urine Protein Negative (Negative) 02/07/21 20:55 Urine Glucose (UA) Negative (Negative) 02/07/21 20: Urine Ketones Trace (Negative) H 02/07/21 20:55 Urine Blood Negative (Negative) 02/07/21 20:55 Urine Nitrite Negative (Negative) 02/07/21 20:55 Urine Bilirubin Negative (Negative) 02/07/21 20:55 Urine Urobilinogen Negative (Negative) 02/07/21 20:55 Ur Leukocyte Esterase Trace (Negative) H 02/07/21 20:55 Urine WBC (Auto) >30 /hpf (0-5) H 02/07/21 20:55 Urine RBC (Auto) 0-4 /hpf (0-4) 02/07/21 20:55 U Hyaline Cast (Auto) 1-5 /lpf (0-5) 02/07/21 20:55 U Epithel Cells (Auto) >30 /lpf (0-5) H 02/07/21 20:55 Urine Bacteria (Auto) 1+ (Negative) H 02/07/21 20:55 Urine Yeast Not Reportable 02/07/21 20:55 COVID-19 Eval Order Covid19 at [facility] 02/07/21 23:25 SARS-CoV-2 (PCR) NEGATIVE (Negative) 02/07/21 23:[address] [facility] Patient: ERIBERTO SOL (Female) : 83 Status: ER Date: 02/07/21 23:16 Room #: History: abd pain appen pres Slices: [id number] Priors: Tech: Jermaine Rodriguez @ [phone] Exams: CT ABDOMEN & PELVIS With Contrast Contrast: IV Amt: 89 ml optiray Accession Numbers: [id number] Preliminary Findings Only See Final Report For Complete Findings CT ABDOMEN & PELVIS With Contrast: Normal appendix. No acute abnormality along the GI tract. Hepatic steatosis and hepatomegaly. Gallbladder, pancreas, and spleen are unremarkable. No renal or ureteral stones. Right ovarian cyst measuring 2.5 cm. Trace physiologic free fluid. Radiologist: Abner Sanchez MD Study ready at 23:22 and initial results transmitted at 23:27 *This report constitutes a preliminary interpretation only. Non-acute findings felt to be unrelated to the clinical presentation may not be discussed in this report. The study will be interpreted and a final report will be generated by the local Radiologist the following shift. To reach the hospital radiology department call [phone]. If a discrepancy is found between the preliminary and final interpretations of this study, please notify us via our Client Portal at [email or web address] QA Exams.You can also fax this report with a description of the discrepancy, or include the final report, to our daytime fax number [phone].If faxing, please indicate the severity of discrepancy using one of the following categories: [ ] 1 - Agree/Informational [ ] 2 - Unlikely to Affect Management [ ] 3 - Possible Eventual Change of Management [ ] 4 - Probable Immediate Change of Management For all other patient related information, please fax us at [phone]. [id number] Code Status & VTE Plan Code Status Full code VTE Prophylaxis Plan VTE Prophylaxis will be ordered: Yes PG Care Time/CCT Total # of Minutes Spent Total Time Spent with Patient: Total time spent is greater than 50% in coordination of care (as documented) at patient's floor/unit and/or counseling patient: Coding Level of Care Code 07792 OBS Care - Level 3 Diagnoses Right sided abdominal pain R10.9 Nausea R11.0 Esophageal reflux K21.9 Hypertension I10 Hypertension type: essential hypertension Migraine without aura, not intractable, without status migrainosus G43.009 Acute peptic ulcer K27.3 Asthma exacerbation attacks J45.901 (1) Hypertension Hypertension type: essential hypertension Qualified Code(s): I10 - Essential (primary) hypertension
[2021-02-08] MEDS: ONDANSETRON INJ 2 MG/ML 2 ML VIAL IV PRN ×3 (02:31→22:01)
[2021-02-08] MEDS ORDERED: SUMAtriptan succinate 6 MG/0.5 ML VIAL SC PRN (02:38)
[2021-02-08] MEDS: NSS + 20MEQ KCL 20 MEQ/1,000 ML BAG IV SCH ×3 (03:02→19:17)
[2021-02-08] MEDS: FAMOTIDINE 20 MG in SYRINGE 3 ML IV SCH ×2 (03:03→18:30)
[2021-02-08] MEDS: VERAPAMIL HCL 240 MG TABCR PO SCH (08:36)
[2021-02-08] MEDS: TOPIRAMATE 100 MG TAB PO SCH ×2 (08:36→20:32)
[2021-02-08] MEDS: LABETALOL HCL 100 MG TAB PO SCH ×2 (08:36→20:32)
--- NOTE | 2021-02-08 08:50 | CT Scan Report ---
CT abd pelvis IV con only CLINICAL HISTORY: Pt c/o abd pain COMPARISON STUDY: February 01, 2021 TECHNIQUE: A dose lowering technique was utilized adhering to the principles of ALARA. CT DOSE: 1749.25 mGy.cm FINDINGS: Lower chest: The heart is normal in size and configuration, without pericardial effusion. The lung ba ses and pleural spaces are clear. Trace pericardial effusion is seen. Liver: Liver is slightly enlarged with diffuse decrease in attenuation of its parenchyma and no evide nce of focal lesions or intrahepatic biliary dilatation. Gallbladder: Unremarkable. Spleen: Normal in size and attenuation. Pancreas: Unremarkable. Adrenal glands: Right adrenal gland is unremarkable. Redemonstration of 1.2 cm left adrenal myelolipo ma which is unchanged since prior study. Kidneys: There is symmetric renal cortical enhancement. The kidneys are normal in size without hydron ephrosis. Bowel: Small hiatal hernia is seen. Bowel loops are nondilated. Appendix is not well seen. Peritoneum: There is no intraperitoneal free air or abdominal ascites. Vasculature: The abdominal aorta is normal in course and caliber. Adenopathy: None. Pelvic viscera: Urinary bladder is unremarkable. Uterus is normal. Cystic appearance of adnexa could represent physiologic follicles. Small amount of fluid within lower pelvis. Skeletal structures: Minimal degenerative changes of the spine. There is mild punctate sclerotic lesi on within left femoral head and left iliac bones which was also seen on prior. IMPRESSION: 1. No acute intra-abdominal process. 2. Hepatic steatosis. 3. Stable small left adrenal myelolipoma. 4. Small hiatal hernia. 5. Small amount of free fluid within lower pelvic which could be physiologic in premenopausal female . 6. Trace pericardial effusion. ACT 112: Negative or not required by law. The above report was generated using voice recognition software. It may contain grammatical, syntax o r spelling errors. Electronically signed by: Queenie Torre DO 02/08/2021 8:49 AM
[2021-02-08] MEDS ORDERED: DOXEPIN HCL 50 MG CAPSULE PO SCH ×2 (09:00)
[2021-02-08] MEDS: traMADol HCL 50 MG TABLET PO PRN ×2 (13:47→20:32)
--- NOTE | 2021-02-08 14:17 | History & Physical Bridge Note ---
Date of Service February 08, 2021 History & Physical Bridge Note I have examined the patient, reviewed the History & Physical and in the interval since the performance of the History & Physical I have noted the following changes of clinical significance: no HIDA scan today due to scheduling issues, will allow her to eat (she is not very hungry) offer pain control NPO after midnight for HIDA scan tomorrow
[2021-02-08] MEDS ORDERED: Nursing to Pharmacy Communication SCH (20:15)
[2021-02-08] MEDS: DOXEPIN HCL 50 MG CAPSULE PO SCH (20:31)
[2021-02-09] MEDS: NSS + 20MEQ KCL 20 MEQ/1,000 ML BAG IV SCH ×3 (02:48→11:23)
[2021-02-09] MEDS: FAMOTIDINE 20 MG in SYRINGE 3 ML IV SCH ×2 (05:57→18:32)
[2021-02-09 07:02] LABS: Basophils # (auto) 0.01 K/uL (0-0.2); Basophils % (auto) 0.2 %; Eosinophils # (auto) 0.15 K/uL (0-0.5); Eosinophils % (auto) 2.6 %; Hematocrit (blood only) 32.8 % (37-47); Hemoglobin 10.2 g/dL (12.0-16.0); Immature Granulocytes # (auto) 0.01 K/uL (0.00-0.02); Immature Granulocytes % (auto) 0.2 %; Lymphocytes # (auto) 2.12 K/uL (1.2-3.4); Lymphocytes % (auto) 36.7 %; Mean Corpuscular Hemoglobin 23.8 pg (25-34); Mean Corpuscular Hgb Conc 31.1 g/dL (32-36); Mean Corpuscular Volume 76.5 fL (80-100); Mean Platelet Volume 9.7 fL (7.4-10.4); Monocytes % (auto) 6.9 %; Neutrophils # (auto) 3.08 K/uL (1.4-6.5); Neutrophils % (auto) 53.4 %; Platelet Count 253 K/uL (130-400); RDW Coefficient of Variation 16.9 % (11.5-14.5); RDW Standard Deviation 47.4 fL (36.4-46.3); Red Blood Count 4.29 M/uL (4.2-5.4); White Blood Count 5.77 K/uL (4.8-10.8)
[2021-02-09 07:33] LABS: Albumin Level 2.9 gm/dl (3.4-5.0); BUN Creatinine Ratio 10.2 (10-20); Bilirubin,Total 0.2 mg/dl (0.2-1); Calcium 7.6 mg/dl (8.5-10.1); Creatinine Clr Calc Pharmacy 126.3 ml/min; Est GFR (African American) 102.2 ml/min; Est GFR (Non-African American) 88.2 ml/min; Globulin 2.9 gm/dl (2.5-4.0); Potassium 4.3 mmol/L (3.5-5.1); Total Protein 5.8 gm/dl (6.4-8.2)
[2021-02-09] MEDS: VERAPAMIL HCL 240 MG TABCR PO SCH (09:46)
[2021-02-09] MEDS: LABETALOL HCL 100 MG TAB PO SCH ×2 (10:34→21:37)
[2021-02-09] MEDS: TOPIRAMATE 100 MG TAB PO SCH ×2 (10:35→21:36)
--- NOTE | 2021-02-09 16:04 | Nuclear Medicine Report ---
NUCLEAR HEPATOBILIARY SCAN WITH EJECTION FRACTION IMAGING CLINICAL HISTORY: Right upper quadrant and flank pain. COMPARISON STUDY: March 17, 2011. TECHNIQUE: Dynamic images of the liver and anterior abdomen were obtained every 5 minutes for a total of 60 minutes following the IV administration of technetium 99m Choletec. sincalide was then injecte d with additional images acquired every 5 minutes for 45 minutes to calculate the gallbladder ejectio n fraction. . FINDINGS: The hepatobiliary scan shows prompt and homogeneous hepatic uptake. There is visualized act ivity within the intra biliary tree at 10 minutes, and within the gallbladder at 15 minutes. There is delayed biliary to bowel transit, with small bowel visualized by 2 hours. On the sincalide imaging, the gallbladder ejection fraction was measured at 12%. IMPRESSION: 1. Delayed transition of radiotracer to the small bowel and extrahepatic biliary tree. 2. The gallbladder ejection fraction measured 12% which might be seen in chronic cholecystitis. ACT 112: Negative or not required by law. Electronically signed by: Queenie Torre DO 02/09/2021 4:02 PM
[2021-02-09] MEDS ORDERED: MoRPHine SULFATE 2 MG/ML CARP IV PRN (16:39)
--- NOTE | 2021-02-09 16:48 | Hospitalist Progress Note ---
Date of Service February 09, 2021 Assessment & Plan (1) Right sided abdominal pain: Right upper quadrant/right flank pain/nausea- Outpatient ultrasound suggested possible gallbladder sludge. CT abdomen pelvis negative for any acute abdominal process WBC normal, LFT normal HIDA scan with EF shows no evidence of acute cholecystitis did show low EF of 12%, maybe chronic cholecystitis? will allow her to eat and drink this evening Morphine PRN for pain, moderate to severe RUQ pain at this time can stop fluids, Na and Cl elevated will consult general surgeon electronics assembler and tester for their opinion and recommendations going forward explained to patient and her mother that this does not mean she is getting s urgery tomorrow, just getting their opinion if surgery does not feel this is gall bladder issue will then consider GI consult, she follows with Dr. Myles (2) Nausea: See above Zofran PRN (3) Esophageal reflux: GERD/history of acute peptic ulcer- Continue omeprazole Placed on famotidine 20 mg IV every 12 hours If gallbladder work-up was negative, may need to consider endoscopy to assess for esophagitis/gastritis/PUD at this time, pain is more localized in RUQ (4) Hypertension: Continue labetalol and verapamil (5) Migraine without aura, not intractable, without status migrainosus: Continue as needed Fioricet, doxepin, topiramate and sumatriptan Hold oxycodone, and nabumetone Continue verapamil Continue as needed tramadol (6) Asthma exacerbation attacks: No acute symptoms Admission and Anticipated Discharge Date Admission Date: February 08, 2021 Subjective patient still with moderate to severe pain HIDA scan today: no evidence of acute cholecystitis as gall bladder filled immediately however, EF was only 12%, maybe chronic inflammation or dyskinesia still has nausea intermittently but feels like she could try some liquids/light food labs show WBC normal, LFT normal, NA and Cl up, can stop NSS discussed general surgery consult, explained that this is just to get their opinion and recommendation, not a guarantee that she needs cholecystectomy Review of Systems Review of Systems: All systems reviewed & are unremarkable except as noted in Subjective Gastrointestinal: + abdominal pain (RUQ, moderate to severe) and + nausea; no vomiting, no constipation and no diarrhea/loose stools Physical Exam Constitutional: well developed, well nourished and + morbidly obese; + uncomfortable (due to pain) Neck: trachea midline, no thyromegaly Respiratory: normal respiratory effort, lungs clear to auscultation Cardiovascular: RRR, no murmur, no edema Gastrointestinal (Abdomen): Inspection/Auscultation: abdomen normal to inspection and normal bowel sounds; abdomen not distended Percussion/Palpation: + abdomen tender (RUQ), abdomen soft and normal to percussion; no guarding and abdomen not rigid Musculoskeletal: no cyanosis or clubbing, extremities motor strength 5/5 Skin: no rashes, warm and dry Neurologic: patellar DTR's 2+ bilat, sensation intact and PERRL, EOMI, accommodation nl, no face palsy, no dysarthria Psychiatric: A+Ox3, euthymic affect Lymphatic: no cervical or axillary lymphadenopathy Results & Data Results & Data ([facility]) Vital Signs (Past 12 Hours) Vital Signs Temp Pulse Resp BP Pulse Ox 02/09/21 15:38 36.6 C 68 18 112/74 97 02/09/21 07:29 36.8 C 62 20 114/76 96 Laboratory Results Laboratory Results - last 24 hr 02/09/21 02/09/21 06:34 06:34 WBC 5.77 RBC 4.29 Hgb 10.2 L Hct 32.8 L MCV 76.5 L MCH 23.8 L MCHC 31.1 L RDW Std Deviation 47.4 H RDW Coeff of Lea 16.9 H Plt Count 253 MPV 9.7 Immature Gran % (Auto) 0.2 Neut % (Auto) 53.4 Lymph % (Auto) 36.7 [place] % (Auto) 6.9 Eos % (Auto) 2.6 Baso % (Auto) 0.2 Neut # (Auto) 3.08 Lymph # (Auto) 2.12 [place] # (Auto) 0.40 Eos # (Auto) 0.15 Baso # (Auto) 0.01 Immature Gran # (Auto) 0.01 Sodium 146 H Potassium 4.3 D Chloride 120 H Carbon Dioxide 19 L Anion Gap 7.0 BUN 9 Creatinine 0.85 Est Cr Clr Drug Dosing 126.3 Est GFR ( Amer) 102.2 Est GFR (Non-Af Amer) 88.2 BUN/Creatinine Ratio 10.2 Glucose 83 Calcium 7.6 L Total Bilirubin 0.2 AST 16 ALT 26 Alkaline Phosphatase 55 Total Protein 5.8 L D Albumin 2.9 L Globulin 2.9 Albumin/Globulin Ratio 1.0 Diagnostic Findings HIDA scan with EF IMPRESSION: 1. Delayed transition of radiotracer to the small bowel and extrahepatic biliary tree. 2. The gallbladder ejection fraction measured 12% which might be seen in chronic cholecystitis. Medications Administered Current Inpatient Medications Doxepin HCl (Doxepin Hcl 50 Mg Capsule) 150 mg PO HS [facility] Stop: 03/10/21 20:59 Last Admin: 02/08/21 20:31 Dose: 150 mg Documented by: Famotidine 20 mg/ Syringe 5 mls @ 2.5 mls/min IV Q12H [facility] Stop: 03/10/21 02:59 Last Admin: 02/09/21 05:57 Dose: 2.5 mls/min Documented by: Labetalol HCl (Labetalol Hcl 100 Mg Tab) 100 mg PO BID [facility] Stop: 03/10/21 08:59 Last Admin: 02/09/21 10:34 Dose: 100 mg Documented by: Morphine Sulfate (Morphine Sulfate 2 Mg/Ml Carp) 2 mg IV Q4H PRN PRN Reason: Pain Stop: 02/23/21 16:38 Morphine Sulfate (Morphine Sulfate 4 Mg/Ml 1 Ml Carp\Vial) 4 mg IV Q4H PRN PRN Reason: Severe Pain Stop: 02/23/21 16:38 Ondansetron HCl (Ondansetron Inj 2 Mg/Ml 2 Ml Vial) 4 mg IV Q4H PRN PRN Reason: Nausea Stop: 03/10/21 02:09 Sumatriptan Succinate (Sumatriptan Succinate 6 Mg/0.5 Ml Vial) 4 mg SC ONCE PRN PRN Reason: migraine headache Stop: 03/10/21 02:37 Topiramate (Topiramate 100 Mg Tab) 200 mg PO BID [facility] Stop: 03/10/21 08:59 Last Admin: 02/09/21 10:35 Dose: 200 mg Documented by: Tramadol HCl (Tramadol Hcl 50 Mg Tablet) 50 mg PO Q6H PRN PRN Reason: headaches Stop: 03/10/21 02:09 Last Admin: 02/08/21 20:32 Dose: 50 mg Documented by: Verapamil HCl (Verapamil Hcl 240 Mg Tabcr) 240 mg PO QAM [facility] Stop: 03/10/21 08:59 Last Admin: 02/09/21 09:46 Dose: 240 mg Documented by: PG Care Time/CCT Total # of Minutes Spent Total Time Spent with Patient: Total time spent is greater than 50% in coordination of care (as documented) at patient's floor/unit and/or counseling patient: Coding Level of Care Code 33378 Subseq Hosp Care Lvl 2 Diagnoses Right sided abdominal pain R10.9 Nausea R11.0 Esophageal reflux K21.9 Hypertension I10 Hypertension type: essential hypertension Migraine without aura, not intractable, without status migrainosus G43.009 Asthma exacerbation attacks J45.901 (1) Hypertension Hypertension type: essential hypertension Qualified Code(s): I10 - Essential (primary) hypertension
[2021-02-09] MEDS: MoRPHine SULFATE 4 MG/ML 1 ML CARP\\VIAL IV PRN ×2 (17:36→21:37)
--- NOTE | 2021-02-09 18:46 | Surgery Consultation ---
Date of Consultation February 09, 2021 Assessment & Plan (1) Chronic cholecystitis: (2) Dysfunctional gallbladder: pt is a 35 year-old female who was admitted to hospital for acute RUQ pain, HIDA scan EF 12 %, U/S study- gallbladder sludge IM: chronic cholecystitis, dysfunction gallbladder Plan, I recommend to do laparoscopic cholecystectomy, possible open or cholangiogram tomorrow, D/W benefits, risks and alternatives of the surgery, the risk - infection, bleeding, injury other organs, incisional hernia, pt understood, she agrees with the surgery, she signed consent, I answered all questions, NPO after MN, Present on Admission?: Yes History of Present Illness Attending Physician: Geoff Vera DO History of Present Illness Chief Complaint: The patient presents to the emergency department with 1 week of right upper quadrant and right flank pain Primary Care Provider: Grayson Diaz MD The patient is a 35-year-old female with a past medical history including hypertension, migraine without aura, GERD, kidney stones, peptic ulcer history, asthma, asthma exacerbation attacks, morbid obesity and kidney stones. Work-up in the emergency department included the following significant abnormalities: Hemoglobin 11.6 potassium 3.2 and negative COVID-[address] of abdomen pelvis Patient had a gallbladder ultrasound performed as an outpatient on the morning o f 02/07 which showed the following: Suspect a small amount of gallbladder sludge, suspected hepatic steatosis, no calculi or ductal dilatation noted. CT of abdomen and pelvis with contrast performed in ED tonight: Normal appendix, no acute abnormality along the GI tract. Noted hepatic steatosis and hepatomegaly. Gallbladder, pancreas and spleen are unremarkable. No renal or ureteral stones. Right ovarian cyst measuring 2.5 cm I ( Froilan Campos MD) got a call for consult dysfunction gallbladder, I reviewed pt's H/P, labs, HIDA scan and CT scan with pt, pt is still have RUQ pain, Allergies Allergy/AdvReac Type Severity Reaction Status Date / Time pregabalin [From Lyrica] Allergy Intermediate Hives Verified 02/07/21 21:54 Root Beer Flavor Allergy Severe Severe Uncoded 02/07/21 21:54 oropharyngeal hives Codeine Derivatives AdvReac Intermediate Nausea Uncoded 02/07/21 21:54 Home Medications Medication Instructions Recorded Confirmed Type omeprazole 20 mg PO DAILY 10/14/18 02/07/21 History ferrous sulfate 325 mg (65 mg 325 mg PO DAILY #30 tab 05/10/19 02/07/21 History iron) tablet nabumetone 500 mg tablet 500 mg PO BID PRN #60 tab 05/10/19 02/07/21 History tramadol 50 mg tablet 50 mg PO BID PRN 30 Days #10 tab 12/03/19 02/07/21 Rx sumatriptan succinate 4 mg/0.5 mL 4 mg SUBCUT ONCE PRN #1 ml 07/26/20 02/07/21 Rx subcutaneous pen injector doxepin 100 mg capsule 100 mg PO DAILY #30 cap 08/10/20 02/07/21 Rx albuterol sulfate 90 mcg/actuation 2 puff INHALATION Q6H PRN #8.5 g 09/01/20 02/07/21 Rx aerosol inhaler kkovbwmmwz-skfplgedultlp-cjvlagbh 1 - 2 tab PO .COMPLEX PRN 30 Days 09/27/20 02/07/21 Rx 50 mg-325 mg-40 mg tablet #12 tab promethazine 25 mg tablet 25 mg PO TID PRN 30 Days #30 tab 09/27/20 02/07/21 Rx fremanezumab-vfrm 225 mg/1.5 mL 675 mg SQ .COMPLEX 90 Days #4.5 ml 10/08/20 02/07/21 Rx subcutaneous syringe hydrochlorothiazide 25 mg tablet 25 mg PO DAILY #30 tab 10/20/20 02/07/21 Rx mupirocin 2 % topical ointment 1 applic TOPICAL BID #15 g 10/28/20 02/07/21 Rx labetalol 100 mg tablet 100 mg PO BID #60 tab 12/01/20 02/07/21 Rx doxepin 50 mg capsule 50 mg PO DAILY #30 cap 12/20/20 02/07/21 Rx lasmiditan [Reyvow] 100 mg PO DIRECTED PRN 02/01/21 02/07/21 History ondansetron HCl [Zofran] 4 mg PO Q6H PRN #10 tab 02/02/21 02/07/21 Rx oxycodone 5 mg PO Q6 PRN #7 tab 02/02/21 02/07/21 Rx potassium chloride 20 meq PO DAILY #7 tab 02/02/21 02/07/21 Rx topiramate 200 mg tablet 200 mg PO BID 30 Days #60 tab 02/07/21 02/07/21 Rx verapamil 240 mg tablet,extended 240 mg PO QAM 30 Days #30 tab 02/07/21 02/07/21 Rx release Past Med/Surg History Medical History Esophageal reflux Kidney stones Migraine headache Migraine without aura, not intractable, without status migrainosus Surgical History History of adenoidectomy History of ankle surgery History of esophagogastroduodenoscopy S/P colonoscopy S/P tonsillectomy S/P tooth extraction Family History Father No family history of bleeding disorder Mother Asthma Grandfather (Paternal) Hypertension Grandmother (Paternal) Hypertension Breast cancer Heart disease Grandfather (Paternal) Stroke Family/Other Heart disease Other No family history of adverse response to anesthesia No pertinent family history Social History Smoking Status: Never smoker Second Hand Exposure: Yes; Do You Dip or Chew Tobacco: No; Tobacco Cessation Education Requested by Patient: No Hx Alcohol Use: Yes Alcohol Intake Frequency: Monthly or Less Hx Substance Use: No Preferred Language: Kinyarwanda Communication Ability: Effective Allergist Immunologist Required: No Beliefs That Will Affect Care: None marital status: Single Current Living Situation: Alone current occupational status: employed 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[employer], [place] Other Information That Helps Us Care for You: No Feels Safe at Home: Yes Safety Concerns: Feels Safe At This Time Assistive Devices: Glasses Review of Systems Review of Systems: The patient denies chest pain, palpitations, shortness of breath, dyspnea on exertion, cough, lower extremity swelling, sore throat, fevers, chills, sweats, vomiting, diarrhea , constipation, blood in urine or stool, dysuria, urinary frequency or urgency, lightheadedness, dizziness, headache, memory loss, loss of consciousness, rash, abnormal bruising or bleeding, imbalance, focal or generalized weakness, numbness or tingling in arms or legs, generalized arthralgias or myalgias, back or neck pain, or night sweats. The review of systems is otherwise negative other than for that already noted above, and at least 10 systems have been reviewed. Allergies Allergy/AdvReac Type Severity Reaction Status Date / Time pregabalin [From Lyrica] Allergy Intermediate Hives Verified 02/07/21 21:54 Root Beer Flavor Allergy Severe Severe Uncoded 02/07/21 21:54 oropharyngeal hives Codeine Derivatives AdvReac Intermediate Nausea Uncoded 02/07/21 21:54 Home Medications Medication Instructions Recorded Confirmed Type omeprazole 20 mg PO DAILY 10/14/18 02/07/21 History ferrous sulfate 325 mg (65 mg 325 mg PO DAILY #30 tab 05/10/19 02/07/21 History iron) tablet nabumetone 500 mg tablet 500 mg PO BID PRN #60 tab 05/10/19 02/07/21 History tramadol 50 mg tablet 50 mg PO BID PRN 30 Days #10 tab 12/03/19 02/07/21 Rx sumatriptan succinate 4 mg/0.5 mL 4 mg SUBCUT ONCE PRN #1 ml 07/26/20 02/07/21 Rx subcutaneous pen injector doxepin 100 mg capsule 100 mg PO DAILY #30 cap 08/10/20 02/07/21 Rx albuterol sulfate 90 mcg/actuation 2 puff INHALATION Q6H PRN #8.5 g 09/01/20 02/07/21 Rx aerosol inhaler zjrzfknlnb-cykzamffhksrd-mnpjfjdu 1 - 2 tab PO .COMPLEX PRN 30 Days 09/27/20 02/07/21 Rx 50 mg-325 mg-40 mg tablet #12 tab promethazine 25 mg tablet 25 mg PO TID PRN 30 Days #30 tab 09/27/20 02/07/21 Rx fremanezumab-vfrm 225 mg/1.5 mL 675 mg SQ .COMPLEX 90 Days #4.5 ml 10/08/20 02/07/21 Rx subcutaneous syringe hydrochlorothiazide 25 mg tablet 25 mg PO DAILY #30 tab 10/20/20 02/07/21 Rx mupirocin 2 % topical ointment 1 applic TOPICAL BID #15 g 10/28/20 02/07/21 Rx labetalol 100 mg tablet 100 mg PO BID #60 tab 12/01/20 02/07/21 Rx doxepin 50 mg capsule 50 mg PO DAILY #30 cap 12/20/20 02/07/21 Rx lasmiditan [Reyvow] 100 mg PO DIRECTED PRN 02/01/21 02/07/21 History ondansetron HCl [Zofran] 4 mg PO Q6H PRN #10 tab 02/02/21 02/07/21 Rx oxycodone 5 mg PO Q6 PRN #7 tab 02/02/21 02/07/21 Rx potassium chloride 20 meq PO DAILY #7 tab 02/02/21 02/07/21 Rx topiramate 200 mg tablet 200 mg PO BID 30 Days #60 tab 02/07/21 02/07/21 Rx verapamil 240 mg tablet,extended 240 mg PO QAM 30 Days #30 tab 02/07/21 02/07/21 Rx release Patient History Medical History Esophageal reflux Kidney stones Migraine headache Migraine without aura, not intractable, without status migrainosus Surgical History History of adenoidectomy History of ankle surgery History of esophagogastroduodenoscopy S/P colonoscopy S/P tonsillectomy S/P tooth extraction Family History Father No family history of bleeding disorder Mother Asthma Grandfather (Paternal) Hypertension Grandmother (Paternal) Hypertension Breast cancer Heart disease Grandfather (Paternal) Stroke Family/Other Heart disease Other No family history of adverse response to anesthesia No pertinent family history Social History Smoking Status: Never smoker Second Hand Exposure: Yes; Do You Dip or Chew Tobacco: No; Tobacco Cessation Education Requested by Patient: No Hx Alcohol Use: Yes Alcohol Intake Frequency: Monthly or Less Hx Substance Use: No Preferred Language: Kinyarwanda Communication Ability: Effective Allergist Immunologist Required: No Beliefs That Will Affect Care: None marital status: Single Current Living Situation: Alone current occupational status: employed 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[employer], [place] Other Information That Helps Us Care for You: No Feels Safe at Home: Yes Safety Concerns: Feels Safe At This Time Assistive Devices: None Physical Exam Constitutional: WD/WN, vitals as above well developed and well nourished Eyes: PERRL, conjunctivae normal, anicteric sclerae ENMT: external ear and nose normal, oropharynx normal Neck: trachea midline, no thyromegaly Respiratory: normal respiratory effort, lungs clear to auscultation normal respiratory effort Cardiovascular: RRR, no murmur, no edema Rate/Rhythm: regular rate and regular rhythm Gastrointestinal (Abdomen): Percussion/Palpation: + abdomen tender and abdomen soft tenderness at RUQ, no rebound pain, no distend, BS + Musculoskeletal: no cyanosis or clubbing, extremities motor strength 5/5 Skin: no rashes, warm and dry Neurologic: awake Psychiatric: Orientation: alert and oriented x 3 Results & Data ([facility]) Vital Signs (Past 12 Hours) Vital Signs Temp Pulse Resp BP Pulse Ox 02/09/21 15:38 36.6 C 68 18 112/74 97 02/09/21 07:29 36.8 C 62 20 114/76 96 Laboratory Results Abnormal lab results 02/09/21 02/09/21 Range/Units 06:34 06:34 Hgb 10.2 L (12.0-16.0) g/dL Hct 32.8 L (37-47) % MCV 76.5 L (80-100) fL MCH 23.8 L (25-34) pg MCHC 31.1 L (32-36) g/dL RDW Std Deviation 47.4 H (36.4-46.3) fL RDW Coeff of Lea 16.9 H (11.5-14.5) % Sodium 146 H (136-145) mmol/L Chloride 120 H (98-107) mmol/L Carbon Dioxide 19 L (21-32) mmol/L Calcium 7.6 L (8.5-10.1) mg/dl Total Protein 5.8 L D (6.4-8.2) gm/dl Albumin 2.9 L (3.4-5.0) gm/dl Diagnostic Findings US gallbladder CLINICAL HISTORY: R10.11 - Right upper quadrant pain COMPARISON STUDY: CT scan dated 02/01/2021 FINDINGS: Portions the pancreas were obscured. The visualized portion of the pancreatic body appear normal. The liver was difficult to penetrate and appeared mildly echogenic. Hepatic steatosis is suspected. There is no ductal dilatation. The common bile duct measures 5 mm. No shadowing gallbladder calculi were visualized. A small amount of gallbladder sludge was suspected. There is no right-sided hydronephrosis. IMPRESSION: 1. Suspected small amount of gallbladder sludge 2. No shadowing gallbladder calculi identified 2. No ductal dilatation 4. Suspected hepatic steatosis CT abd pelvis IV con only CLINICAL HISTORY: Pt c/o abd pain COMPARISON STUDY: February 01, 2021 TECHNIQUE: A dose lowering technique was utilized adhering to the principles of ALARA. CT DOSE: 1749.25 mGy.cm FINDINGS: Lower chest: The heart is normal in size and configuration, without pericardial effusion. The lung bases and pleural spaces are clear. Trace pericardial effusion is seen. Liver: Liver is slightly enlarged with diffuse decrease in attenuation of its parenchyma and no evidence of focal lesions or intrahepatic biliary dilatation. Gallbladder: Unremarkable. Spleen: Normal in size and attenuation. Pancreas: Unremarkable. Adrenal glands: Right adrenal gland is unremarkable. Redemonstration of 1.2 cm left adrenal myelolipoma which is unchanged since prior study. Kidneys: There is symmetric renal cortical enhancement. The kidneys are normal in size without hydronephrosis. Bowel: Small hiatal hernia is seen. Bowel loops are nondilated. Appendix is not well seen. Peritoneum: There is no intraperitoneal free air or abdominal ascites. Vasculature: The abdominal aorta is normal in course and caliber. Adenopathy: None. Pelvic viscera: Urinary bladder is unremarkable. Uterus is normal. Cystic appearance of adnexa could represent physiologic follicles. Small amount of fluid within lower pelvis. Skeletal structures: Minimal degenerative changes of the spine. There is mild punctate sclerotic lesion within left femoral head and left iliac bones which was also seen on prior. IMPRESSION: 1. No acute intra-abdominal process. 2. Hepatic steatosis. 3. Stable small left adrenal myelolipoma. 4. Small hiatal hernia. 5. Small amount of free fluid within lower pelvic which could be physiologic in premenopausal female. 6. Trace pericardial effusion. NUCLEAR HEPATOBILIARY SCAN WITH EJECTION FRACTION IMAGING CLINICAL HISTORY: Right upper quadrant and flank pain. COMPARISON STUDY: March 17, 2011. TECHNIQUE: Dynamic images of the liver and anterior abdomen were obtained every 5 minutes for a total of 60 minutes following the IV administration of technetium 99m Choletec. sincalide was then injected with additional images acquired every 5 minutes for 45 minutes to calculate the gallbladder ejection fraction. . FINDINGS: The hepatobiliary scan shows prompt and homogeneous hepatic uptake. There is visualized activity within the intra biliary tree at 10 minutes, and within the gallbladder at 15 minutes. There is delayed biliary to bowel transit, with small bowel visualized by 2 hours. On the sincalide imaging, the gallbladder ejection fraction was measured at 12%. IMPRESSION: 1. Delayed transition of radiotracer to the small bowel and extrahepatic biliary tree. 2. The gallbladder ejection fraction measured 12% which might be seen in chronic cholecystitis.
[2021-02-09] MEDS: DOXEPIN HCL 50 MG CAPSULE PO SCH (21:36)
[2021-02-09] MEDS: ONDANSETRON INJ 2 MG/ML 2 ML VIAL IV PRN (21:38)
[2021-02-10] MEDS: ONDANSETRON INJ 2 MG/ML 2 ML VIAL IV PRN ×4 (01:56→20:36)
[2021-02-10] MEDS: MoRPHine SULFATE 4 MG/ML 1 ML CARP\\VIAL IV PRN ×4 (01:56→20:35)
[2021-02-10] MEDS: FAMOTIDINE 20 MG in SYRINGE 3 ML IV SCH ×2 (05:47→17:54)
[2021-02-10] MEDS: traMADol HCL 50 MG TABLET PO PRN (05:49)
[2021-02-10 06:31] LABS: Basophils # (auto) 0.01 K/uL (0-0.2); Basophils % (auto) 0.1 %; Eosinophils # (auto) 0.18 K/uL (0-0.5); Eosinophils % (auto) 2.5 %; Hematocrit (blood only) 33.7 % (37-47); Hemoglobin 10.5 g/dL (12.0-16.0); Immature Granulocytes # (auto) 0.01 K/uL (0.00-0.02); Immature Granulocytes % (auto) 0.1 %; Lymphocytes # (auto) 1.86 K/uL (1.2-3.4); Lymphocytes % (auto) 26.3 %; Mean Corpuscular Hgb Conc 31.2 g/dL (32-36); Mean Corpuscular Volume 76.9 fL (80-100); Mean Platelet Volume 9.9 fL (7.4-10.4); Monocytes # (auto) 0.47 K/uL (0.11-0.59); Monocytes % (auto) 6.6 %; Neutrophils # (auto) 4.54 K/uL (1.4-6.5); Neutrophils % (auto) 64.4 %; Platelet Count 271 K/uL (130-400); RDW Coefficient of Variation 16.9 % (11.5-14.5); RDW Standard Deviation 47.8 fL (36.4-46.3); Red Blood Count 4.38 M/uL (4.2-5.4); White Blood Count 7.07 K/uL (4.8-10.8)
[2021-02-10 07:09] LABS: Albumin Level 3.1 gm/dl (3.4-5.0); BUN Creatinine Ratio 9.9 (10-20); Calcium 7.6 mg/dl (8.5-10.1); Creatinine Clr Calc Pharmacy 126.3 ml/min; Est GFR (African American) 102.2 ml/min; Est GFR (Non-African American) 88.2 ml/min
[2021-02-10 07:11] LABS: Bilirubin,Total 0.3 mg/dl (0.2-1); Globulin 3.1 gm/dl (2.5-4.0); Total Protein 6.2 gm/dl (6.4-8.2)
[2021-02-10] MEDS ORDERED: MIDAZOLAM HCL 1 MG/ML 2ML VIAL ONE (07:12)
[2021-02-10] MEDS ORDERED: fentaNYL citrate 100 MCG/2 ML VIAL ONE (07:12)
[2021-02-10] MEDS ORDERED: BUPIVACAINE 0.5 % 5 MG/1 ML MPF 30ML VIAL ONE (07:21)
[2021-02-10] MEDS ORDERED: BACITRACIN OINT 15 GM TUBE ONE (07:21)
[2021-02-10] MEDS ORDERED: LIDOCAINE 1% LOCAL 20 ML VIAL ONE (07:21)
--- NOTE | 2021-02-10 07:32 | History & Physical Bridge Note ---
Date of Service February 10, 2021 History & Physical Bridge Note I have examined the patient, reviewed the History & Physical and in the interval since the performance of the History & Physical I have noted the following changes of clinical significance: no changes noted
[2021-02-10] MEDS ORDERED: ceFAZolin 2,000 MG/15 ML IV PUSH IV ONE (07:35)
[2021-02-10] MEDS ORDERED: ONDANSETRON INJ 2 MG/ML 2 ML VIAL IV PRN (07:46)
[2021-02-10] MEDS ORDERED: ATROPINE SULFATE 0.1 MG/ML 10ML SYR IV PRN (07:46)
[2021-02-10] MEDS ORDERED: fentaNYL citrate 100 MCG/2 ML VIAL IV PRN (07:46)
[2021-02-10] MEDS ORDERED: HYDROmorphone INJ 2 MG/ML SYR/VIAL IV PRN (07:46)
[2021-02-10] MEDS ORDERED: ePHEDrine sulfate 50 MG/ML AMP IV PRN (07:46)
--- NOTE | 2021-02-10 07:46 | Anesthesiology Consultation ---
Date of Service February 10, 2021 Assessment & Plan ASA ASA2 Proposed Anesthesia Anesthesia Type: General Risk / Benefits Reviewed With: PT / POA / Parent / Guardian, Accepts Plan and Informed Consent Obtained History Surgery Operation Date: 02/10/21 07:00 Proposed Procedures p Laparoscopic Cholecystectomy, Possible Open - Froilan Campos MD Height/Weight Height: 5 ft 6 in Weight: 129.7 kg Allergies Allergy/AdvReac Type Severity Reaction Status Date / Time pregabalin [From Lyrica] Allergy Intermediate Hives Verified 02/07/21 21:54 Root Beer Flavor Allergy Severe Severe Uncoded 02/07/21 21:54 oropharyngeal hives Codeine Derivatives AdvReac Intermediate Nausea Uncoded 02/07/21 21:54 Medications Home Medications Medication Instructions Recorded Confirmed Last Taken omeprazole 20 mg PO DAILY 10/14/18 02/07/21 02/07/21 ferrous sulfate 325 mg (65 mg 325 mg PO DAILY #30 tab 05/10/19 02/07/21 02/07/21 iron) tablet nabumetone 500 mg tablet 500 mg PO BID PRN #60 tab 05/10/19 02/07/21 Unknown tramadol 50 mg tablet 50 mg PO BID PRN 30 Days #10 tab 12/03/19 02/07/21 Unknown sumatriptan succinate 4 mg/0.5 mL 4 mg SUBCUT ONCE PRN #1 ml 07/26/20 02/07/21 Unknown subcutaneous pen injector doxepin 100 mg capsule 100 mg PO DAILY #30 cap 08/10/20 02/07/21 02/07/21 albuterol sulfate 90 mcg/actuation 2 puff INHALATION Q6H PRN #8.5 g 09/01/20 02/07/21 Unknown aerosol inhaler dwkhlyaxmt-indykectdyrow-iokvakcm 1 - 2 tab PO .COMPLEX PRN 30 Days 09/27/20 02/07/21 Unknown 50 mg-325 mg-40 mg tablet #12 tab promethazine 25 mg tablet 25 mg PO TID PRN 30 Days #30 tab 09/27/20 02/07/21 Unknown fremanezumab-vfrm 225 mg/1.5 mL 675 mg SQ .COMPLEX 90 Days #4.5 ml 10/08/2001/16 Unknown subcutaneous syringe hydrochlorothiazide 25 mg tablet 25 mg PO DAILY #30 tab 10/20/20 02/07/21 02/07/21 mupirocin 2 % topical ointment 1 applic TOPICAL BID #15 g 10/28/20 02/07/21 Unknown labetalol 100 mg tablet 100 mg PO BID #60 tab 12/01/20 02/07/21 02/07/21 doxepin 50 mg capsule 50 mg PO DAILY #30 cap 12/20/20 02/07/21 02/07/21 lasmiditan [Reyvow] 100 mg PO DIRECTED PRN 02/01/21 02/07/21 Unknown ondansetron HCl [Zofran] 4 mg PO Q6H PRN #10 tab 02/02/21 02/07/21 Unknown oxycodone 5 mg PO Q6 PRN #7 tab 02/02/21 02/07/21 Unknown potassium chloride 20 meq PO DAILY #7 tab 02/02/21 02/07/21 02/07/21 topiramate 200 mg tablet 200 mg PO BID 30 Days #60 tab 02/07/21 02/07/21 02/07/21 verapamil 240 mg tablet,extended 240 mg PO QAM 30 Days #30 tab 02/07/21 02/07/21 02/07/21 release Active Medications Generic Name Dose Route Start Last Admin Trade Name Freq PRN Reason Stop Dose Admin Doxepin HCl 150 mg 02/08/21 21:00 02/09/21 21:36 Doxepin Hcl 50 Mg Capsule PO 03/10/21 20:59 150 mg HS MEKA Administration Famotidine 20 mg/ Syringe 5 mls @ 2.5 mls/min 02/08/21 03:00 02/10/21 05:47 IV 03/10/21 02:59 2.5 mls/min Q12H MEKA Administration Labetalol HCl 100 mg 02/08/21 09:00 02/09/21 21:37 Labetalol Hcl 100 Mg Tab PO 03/10/21 08:59 100 mg BID MEKA Administration Morphine Sulfate 4 mg 02/09/21 16:39 02/10/21 01:56 Morphine Sulfate 4 Mg/Ml 1 Ml Carp\Vial IV 02/23/21 16:38 4 mg Q4H PRN Administration Severe Pain Ondansetron HCl 4 mg 02/09/21 16:40 02/10/21 01:56 Ondansetron Inj 2 Mg/Ml 2 Ml Vial IV 03/10/21 02:09 4 mg Q4H PRN Administration Nausea Topiramate 200 mg 02/08/21 09:00 02/09/21 21:36 Topiramate 100 Mg Tab PO 03/10/21 08:59 200 mg BID MEKA Administration Tramadol HCl 50 mg 02/08/21 02:10 02/10/21 05:49 Tramadol Hcl 50 Mg Tablet PO 03/10/21 02:09 50 mg Q6H PRN Administration headaches Verapamil HCl 240 mg 02/08/21 09:00 02/09/21 09:46 Verapamil Hcl 240 Mg Tabcr PO 03/10/21 08:59 240 mg QAM MEKA Administration NPO Date Last Intake of Fluids: 02/10/21 Time Last Intake of Fluids: 05:00 Date Last Intake of Solids: 02/09/21 Time Last Intake of Solids: 17:00 Past Medical History Medical History Esophageal reflux Kidney stones Migraine headache Migraine without aura, not intractable, without status migrainosus Exercise / Class Metabolic Activity II 4-5 Yardwork/Stairs/Walk up hill Past Family History Family History Father No family history of bleeding disorder ? of bleeding disorder. Also had to have nose cauterized in the past Mother Asthma Grandfather (Paternal) Hypertension Grandmother (Paternal) Hypertension Breast cancer Paternal great grandmother Heart disease Grandfather (Paternal) Stroke Paternal great grandfather Family/Other Heart disease Paternal niece Other No family history of adverse response to anesthesia No pertinent family history Past Surgical History Surgical History History of adenoidectomy History of ankle surgery History of esophagogastroduodenoscopy S/P colonoscopy S/P tonsillectomy S/P tooth extraction Past Anesthesia History No Hx of Anesthesia Complications and No Family Hx of Anesthesia Complications History of PONV No Hx of PONV and No Hx of Motion Sickness Social History Smoking Status: Never smoker Do You Dip or Chew Tobacco: No Hx Alcohol Use: Yes alcohol intake frequency: holidays/special occasions only Hx Substance Use: No Review of Systems denies fever/cough/ colds/ chest pain/ SOB/ ARTURO denies ARTURO Physical Exam Vital Signs Last Vital Signs Temp 36.5 C 02/10/21 07:32 Pulse 58 L 02/10/21 07:32 Resp 16 02/10/21 07:32 BP 101/64 02/10/21 07:32 Pulse Ox 95 02/10/21 07:32 Constitutional + overweight ENMT Mouth: no TMJ abnormality and no dentition abnormality Thyromental Distance: > or= 3.5 Finger Breadths Mallampati Class: II Neck neck extension not limited Respiratory normal respiratory effort; no respiratory distress Auscultation: lungs clear to auscultation bilaterally Cardiovascular Rate/Rhythm: regular rate and regular rhythm Neurologic moves all extremities Psychiatric Orientation: alert and oriented x 3 Testing Laboratory Results 02/10/21 06:14 02/10/21 06:14 Urine Color Yellow 02/07/21 20:55 Urine Appearance Cloudy (Clear) A 02/07/21 20:55 Urine pH 7.0 (4.5-7.5) 02/07/21 20:55 Ur Specific Sayre 1.021 (1.000-1.030) 02/07/21 20:55 Urine Protein Negative (Negative) 02/07/21 20:55 Urine Glucose (UA) Negative (Negative) 02/07/21 20:55 Urine Ketones Trace (Negative) H 02/07/21 20:55 Urine Nitrite Negative (Negative) 02/07/21 20:55 Ur Leukocyte Esterase Trace (Negative) H 02/07/21 20:55 Urine WBC (Auto) >30 /hpf (0-5) H 02/07/21 20:55 Urine RBC (Auto) 0-4 /hpf (0-4) 02/07/21 20:55 U Hyaline Cast (Auto) 1-5 /lpf (0-5) 02/07/21 20:55 U Epithel Cells (Auto) >30 /lpf (0-5) H 02/07/21 20:55 Urine Bacteria (Auto) 1+ (Negative) H 02/07/21 20:55 02/07/21 20:55 Urine Culture - Final Urine,Clean Catch More than three types of organisms present, all high counts mixed probable skin dewayne - No further identifications or sensitivities to follow.
[2021-02-10] MEDS ORDERED: ePHEDrine sulfate 50 MG/ML SYR ONE (08:14)
[2021-02-10] MEDS ORDERED: DEXAMETHASONE SOD INJ 4 MG/ML VIAL ONE (08:14)
[2021-02-10] MEDS ORDERED: LIDOCAINE 2% 2 ML VIAL/AMP(20MG/ML) INFIL ONE (08:14)
[2021-02-10] MEDS ORDERED: NEOSTIGMINE METHYLSULFATE 1 MG/ML 10ML VIAL ONE (08:14)
[2021-02-10] MEDS ORDERED: ROCURONIUM BROMIDE 10 MG/ML 5 ML VIAL IV ONE ×3 (08:14→08:46)
[2021-02-10] MEDS ORDERED: ONDANSETRON INJ 2 MG/ML 2 ML VIAL ONE (08:14)
[2021-02-10] MEDS ORDERED: PROPOFOL IV EMULSION 10 MG/ML 20 ML VIAL IV ONE ×2 (08:14→08:28)
[2021-02-10] MEDS ORDERED: GLYCOPYRROLATE 0.2 MG/ML VIAL ONE (08:14)
--- NOTE | 2021-02-10 09:23 | Post Operative Brief Note ---
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
--- NOTE | 2021-02-10 10:18 | Anesthesiology Progress Note ---
Date of Service February 10, 2021 Anesthesia Post Procedure Vital Signs Vital Signs: Temp Pulse Pulse Resp BP BP Pulse Ox 02/10/21 10:15 36.7 C 61 16 134/69 95 02/10/21 10:05 67 21 134/70 95 02/10/21 09:55 74 19 125/61 97 02/10/21 09:45 66 20 145/70 H 97 02/10/21 09:39 36.3 C L 58 L 22 117/83 94 02/10/21 07:32 36.5 C 58 L 16 101/64 95 02/09/21 22:46 37.1 C 63 20 129/85 96 02/09/21 15:38 36.6 C 68 18 112/74 97 Pain Intensity Right Upper Abdomen: Pain Intensity: 8 Transfer of Care Handoff Completed per policy Notes Mental Status: alert / awake / arousable and participated in evaluation Patient Amnestic to Procedure: Yes Nausea / Vomiting: adequately controlled Pain: adequately controlled Airway Patency, RR, SpO2: stable & adequate BP & HR: stable & adequate Hydration State: stable & adequate Anesthetic Complications: no major complications apparent and Pt Satisfied with anesthetic care
[2021-02-10] MEDS ORDERED: oxyCODONE IR HOME PACK PO PRN (10:25)
[2021-02-10] MEDS ORDERED: NON-FORMULARY MEDICATION (Fremanezumab-Vfrm [Ajovy Syringe] 225 mg/1.5 mL syringe) SQ SCH (10:25)
[2021-02-10] MEDS ORDERED: BUTALBITAL/ACETAMIN/CAFFEINE TAB PO PRN (10:25)
[2021-02-10] MEDS ORDERED: NABUMETONE 500 MG TABLET PO PRN (10:25)
[2021-02-10] MEDS ORDERED: [UNRECOGNIZED DRUG - OTHER] PO PRN (10:25)
[2021-02-10] MEDS ORDERED: ALBUTEROL HFA 8 GM INHALER INH PRN (10:25)
[2021-02-10] MEDS ORDERED: PROMETHAZINE HCL 25 MG TAB PO PRN (10:25)
[2021-02-10] MEDS ORDERED: COUGH DROP (SUGAR FREE) LOZ 24 LOZ/1 BOX BUCCAL PRN (10:50)
[2021-02-10] MEDS ORDERED: ONDANSETRON 4 MG OD TAB PO PRN (10:58)
[2021-02-10] MEDS ORDERED: LACTATED RINGER'S 1,000 ML IV SCH (11:00)
[2021-02-10] MEDS ORDERED: ceFAZolin 1000MG 1,000 MG/7.5 ML SYR IV ONE (11:00)
--- NOTE | 2021-02-10 11:38 | Operative Report (OR) ---
DATE OF OPERATION: 02/10/2021 PREOPERATIVE DIAGNOSES: Chronic cholecystitis, dysfunctional gallbladder. POSTOPERATIVE DIAGNOSES: Chronic cholecystitis, dysfunctional gallbladder. OPERATION: Laparoscopic cholecystectomy. SURGEON: Froilan Campos MD. ANESTHESIA: General. ESTIMATED BLOOD LOSS: About 10 mL. FINDINGS: Chronic cholecystitis. COMPLICATIONS: None. INDICATIONS FOR THE PROCEDURE: This is a 35-year-old female who was admitted to hospital for right upper quadrant pain. The patient had a HIDA scan that shows EF of 12%, dysfunctional gallbladder, I recommended to do the laparoscopic cholecystectomy, possible open, possible cholangiogram. I did talk to the patient about the benefit, the risk, alternate procedure. I indicated the risks may include but not limited to such as bleeding, infection, injury to other organs, incisional hernia, may need ERCP. The patient understands. She signed informed consent and I answered all questions. DETAILS OF PROCEDURE: After we identified the patient and verified the procedure, we brought the patient to the OR, put the patient in the supine position. The patient received SCD on bilateral legs to prevent DVT. Also, patient received 3 grams Ancef IV for prophylactic antibiotic. The patient received general anesthesia without difficulty. The abdomen was prepped and draped in routine sterile fashion. After timeout, I injected the local anesthesia by using 1% lidocaine mixed with 0.5% Marcaine just above the umbilicus. Then I made a small incision just above the umbilicus, opened fascia and opened peritoneum under direct vision, put a Kye trocar in, connected to CO2 to create pneumoperitoneum. Flow rate at 6 liters per minute. Pressure not more than 14 mmHg. Once we got a nice pneumoperitoneum, we put the camera in, looked around the abdomen, shows normal finding on the liver. However, the gallbladder shows chronic cholecystitis, gallbladder wall thickening. There were some omental adhesion to gallbladder. Then, we put another three 5 mm trocars on the right upper quadrant. Once all trocars in, we used the grasper to hold the base of gallbladder, put in the direction to the diaphragm, another grasper to hold the pouch of gallbladder, put a lateral to expunge the triangle of Calot. The cystic duct was identified and mobilized. I put two 5 mm metal clips on the proximal cystic duct, one on the distal cystic duct and used a scissor for transection of cystic duct. Rechecked, no bile leak. The cystic artery was identified and mobilized. I put two 5 mm metal clips on the proximal cystic artery, one on the distal cystic artery, used a scissor for transection of cystic artery. Rechecked, no active bleeding. Then we used the Bovie to take down gallbladder from the liver bed. Rechecked, no active bleeding, no bile leak. Then we removed gallbladder through the catch bag. Then we reinserted Kye trocar in, connected to CO2 to create pneumoperitoneum, again looked around the abdomen, no active bleeding, no bile leak from liver bed. Then we removed all trocar under direct vision. No active bleeding from the trocar sites. Pneumoperitoneum was released, now closed the umbilical incision, fascial layer by using 0 Vicryl [id number] x2, closed subcutaneous layer by using 2-0 Vicryl interruptedly, closed skin by using 4-0 Vicryl continuous running, closed another three 5 mm trocar site of skin only by using 4-0 Vicryl. Then, we put the dressing on. The patient tolerated the procedure well. All instrument, needle and sponge count were correct x2 at the end of the case. The patient transferred to recovery room in stable condition. The specimen sent to pathology. After the procedure, I did talk to the patient about the OR finding and the procedure we did, she understands. I attest to the content of the Intraoperative Record and any orders documented therein. Any exception s are noted below.
[2021-02-10] MEDS: LABETALOL HCL 100 MG TAB PO SCH ×2 (12:07→21:24)
[2021-02-10] MEDS: VERAPAMIL HCL 240 MG TABCR PO SCH (12:08)
[2021-02-10] MEDS: TOPIRAMATE 100 MG TAB PO SCH ×2 (12:08→21:22)
[2021-02-10] MEDS: DOXEPIN HCL 50 MG CAPSULE PO SCH (21:23)
[2021-02-10] MEDS: MUPIROCIN 2% OINT 22 GM TUBE EXT SCH (21:24)
--- NOTE | 2021-02-10 23:55 | Hospitalist Progress Note ---
Date of Service February 10, 2021 Assessment & Plan (1) Right sided abdominal pain: Right upper quadrant/right flank pain/nausea- Outpatient ultrasound suggested possible gallbladder sludge. CT abdomen pelvis negative for any acute abdominal process WBC normal, LFT normal HIDA scan with EF shows no evidence of acute cholecystitis did show low EF of 12%, maybe chronic cholecystitis? Dr. Campos took for lap bhavin on 02/10, no complications, tolerated well advance diet as tolerated, pain control possible discharge tomorrow (2) Nausea: See above Zofran PRN due to dysfunctional gall bladder (3) Esophageal reflux: GERD/history of acute peptic ulcer- Continue omeprazole Placed on famotidine 20 mg IV every 12 hours (4) Hypertension: Continue labetalol and verapamil (5) Migraine without aura, not intractable, without status migrainosus: Continue as needed Fioricet, doxepin, topiramate and sumatriptan Hold oxycodone, and nabumetone Continue verapamil Continue as needed tramadol (6) Asthma exacerbation attacks: No acute symptoms Admission and Anticipated Discharge Date Admission Date: February 09, 2021 Subjective patient went for lap bhavin this morning, tolerated well saw her post op in the morning, no dyspnea, no fever, no nausea she admitted to some post op discomfort but in general feeling better discussed that diet would be per surgery would see how she was feeling tomorrow and possibly discharge Review of Systems Review of Systems: All systems reviewed & are unremarkable except as noted in Subjective Gastrointestinal: + abdominal pain; no nausea, no vomiting, no constipation and no diarrhea/loose stools Physical Exam Constitutional: well developed, well nourished and + morbidly obese; + uncomfortable (due to pain) Neck: trachea midline, no thyromegaly Respiratory: normal respiratory effort, lungs clear to auscultation Cardiovascular: RRR, no murmur, no edema Gastrointestinal (Abdomen): Inspection/Auscultation: normal bowel sounds and + abdominal surgical incision (lap bhavin incisions); abdomen not distended Percussion/Palpation: + abdomen tender (surgical sites), abdomen soft and normal to percussion; no guarding and abdomen not rigid Musculoskeletal: no cyanosis or clubbing, extremities motor strength 5/5 Skin: no rashes, warm and dry Neurologic: patellar DTR's 2+ bilat, sensation intact and PERRL, EOMI, accommodation nl, no face palsy, no dysarthria Psychiatric: A+Ox3, euthymic affect Lymphatic: no cervical or axillary lymphadenopathy Results & Data Results & Data ([facility]) Vital Signs (Past 12 Hours) Vital Signs Temp Pulse Resp BP BP Pulse Ox 02/10/21 22:14 36.7 C 60 14 133/84 95 02/10/21 15:38 36.3 C L 69 18 129/72 94 02/10/21 13:31 36.5 C 58 L 16 143/77 H 93 Laboratory Results Laboratory Results - last 24 hr 02/10/21 02/10/21 02/10/21 06:14 06:14 21:32 WBC 7.07 RBC 4.38 Hgb 10.5 L Hct 33.7 L MCV 76.9 L MCH 24.0 L MCHC 31.2 L RDW Std Deviation 47.8 H RDW Coeff of Lae 16.9 H Plt Count 271 MPV 9.9 Immature Gran % (Auto) 0.1 Neut % (Auto) 64.4 Lymph % (Auto) 26.3 [place] % (Auto) 6.6 Eos % (Auto) 2.5 Baso % (Auto) 0.1 Neut # (Auto) 4.54 Lymph # (Auto) 1.86 [place] # (Auto) 0.47 Eos # (Auto) 0.18 Baso # (Auto) 0.01 Immature Gran # (Auto) 0.01 Sodium 140 Potassium 4.0 Chloride 115 H Carbon Dioxide 20 L Anion Gap 5.0 BUN 8 Creatinine 0.85 Est Cr Clr Drug Dosing 126.3 Est GFR ( Amer) 102.2 Est GFR (Non-Af Amer) 88.2 BUN/Creatinine Ratio 9.9 L Glucose 84 POC Glucose 115 H Calcium 7.6 L Total Bilirubin 0.3 AST 16 ALT 26 Alkaline Phosphatase 57 Total Protein 6.2 L Albumin 3.1 L Globulin 3.1 Albumin/Globulin Ratio 1.0 Medications Administered Current Inpatient Medications Acetaminophen/Butalbital/Caffeine (Butalbital/Acetamin/Caffeine Tab) 1 - 2 tab PO BID PRN PRN Reason: Migraine Headache Stop: 03/12/21 10:24 Albuterol (Albuterol Hfa 8 Gm Inhaler) 2 puffs INH Q6H PRN PRN Reason: shortness of breath or wheezing Stop: 03/12/21 10:24 Doxepin HCl (Doxepin Hcl 50 Mg Capsule) 150 mg PO HS [facility] Stop: 03/10/21 20:59 Last Admin: 02/10/21 21:23 Dose: 150 mg Documented by: Ferrous Sulfate (Ferrous Sulfate 325 Mg Tab) 325 mg PO DAILY [facility] Stop: 03/13/21 08:59 Hydrochlorothiazide (Hydrochlorothiazide 25 Mg Tab) 25 mg PO DAILY [facility] Stop: 03/13/21 08:59 Famotidine 20 mg/ Syringe 5 mls @ 2.5 mls/min IV Q12H [facility] Stop: 03/10/21 02:59 Last Admin: 02/10/21 17:54 Dose: 2.5 mls/min Documented by: Labetalol HCl (Labetalol Hcl 100 Mg Tab) 100 mg PO BID [facility] Stop: 03/10/21 08:59 Last Admin: 02/10/21 21:24 Dose: 100 mg Documented by: Menthol (Cough Drop (Sugar Free) Madan 24 Madan/1 Box) 1 madan BUCCAL UD PRN PRN Reason: throat irritation Stop: 03/12/21 10:49 Morphine Sulfate (Morphine Sulfate 2 Mg/Ml Carp) 2 mg IV Q4H PRN PRN Reason: Pain 1-5 Stop: 02/23/21 16:38 Morphine Sulfate (Morphine Sulfate 4 Mg/Ml 1 Ml Carp\Vial) 4 mg IV Q4H PRN PRN Reason: Severe Pain Stop: 02/23/21 16:38 Last Admin: 02/10/21 20:35 Dose: 4 mg Documented by: Mupirocin (Mupirocin 2% Oint 22 Gm Tube) 1 appln EXT BID MEKA Stop: 03/12/21 20:59 Last Admin: 02/10/21 21:24 Dose: 1 appln Documented by: Nabumetone (Nabumetone 500 Mg Tablet) 500 mg PO BID PRN PRN Reason: Pain Stop: 03/12/21 10:24 Ondansetron HCl (Ondansetron Inj 2 Mg/Ml 2 Ml Vial) 4 mg IV Q4H PRN PRN Reason: Nausea Stop: 03/10/21 02:09 Last Admin: 02/10/21 20:36 Dose: 4 mg Documented by: Ondansetron HCl (Ondansetron 4 Mg Od Tab) 4 mg PO Q6H PRN PRN Reason: Nausea And Vomiting Stop: 03/12/21 10:57 Pantoprazole Sodium (Pantoprazole 40 Mg Tab) 40 mg PO DAILY [facility] Stop: 03/13/21 08:59 Potassium Chloride (Potassium Chloride Crtab 20 Meq Tabcr) 20 meq PO DAILY [facility] Stop: 03/13/21 08:59 Promethazine HCl (Promethazine Hcl 25 Mg Tab) 25 mg PO TID PRN PRN Reason: Nausea Stop: 03/12/21 10:24 Sumatriptan Succinate (Sumatriptan Succinate 6 Mg/0.5 Ml Vial) 4 mg SC ONCE PRN PRN Reason: migraine headache Stop: 03/10/21 02:37 Topiramate (Topiramate 100 Mg Tab) 200 mg PO BID [facility] Stop: 03/10/21 08:59 Last Admin: 02/10/21 21:22 Dose: 200 mg Documented by: Tramadol HCl (Tramadol Hcl 50 Mg Tablet) 50 mg PO Q6H PRN PRN Reason: headaches Stop: 03/10/21 02:09 Last Admin: 02/10/21 05:49 Dose: 50 mg Documented by: Verapamil HCl (Verapamil Hcl 240 Mg Tabcr) 240 mg PO QAM [facility] Stop: 03/10/21 08:59 Last Admin: 02/10/21 12:08 Dose: 240 mg Documented by: PG Care Time/CCT Total # of Minutes Spent Total Time Spent with Patient: Total time spent is greater than 50% in coordination of care (as documented) at patient's floor/unit and/or counseling patient: Coding Level of Care Code 63361 Subseq Hosp Care Lvl 2 Diagnoses Right sided abdominal pain R10.9 Nausea R11.0 Esophageal reflux K21.9 Hypertension I10 Hypertension type: essential hypertension Migraine without aura, not intractable, without status migrainosus G43.009 Asthma exacerbation attacks J45.901 (1) Hypertension Hypertension type: essential hypertension Qualified Code(s): I10 - Essential (primary) hypertension
[2021-02-11] MEDS: ONDANSETRON INJ 2 MG/ML 2 ML VIAL IV PRN ×2 (00:34→08:11)
[2021-02-11] MEDS: MoRPHine SULFATE 4 MG/ML 1 ML CARP\\VIAL IV PRN ×2 (00:34→08:08)
[2021-02-11] MEDS: FAMOTIDINE 20 MG in SYRINGE 3 ML IV SCH (05:21)
[2021-02-11] MEDS: LABETALOL HCL 100 MG TAB PO SCH (08:53)
[2021-02-11] MEDS: VERAPAMIL HCL 240 MG TABCR PO SCH (08:54)
[2021-02-11] MEDS: TOPIRAMATE 100 MG TAB PO SCH (08:54)
[2021-02-11] MEDS: MUPIROCIN 2% OINT 22 GM TUBE EXT SCH (08:54)
[2021-02-11] MEDS ORDERED: FERROUS SULFATE 325 MG TAB PO SCH (09:00)
[2021-02-11] MEDS ORDERED: hydroCHLOROthiazide 25 MG TAB PO SCH (09:00)
[2021-02-11] MEDS ORDERED: PANTOprazole 40 MG TAB PO SCH (09:00)
[2021-02-11] MEDS ORDERED: POTASSIUM CHLORIDE CRTAB 20 MEQ TABCR PO SCH (09:00)
--- NOTE | 2021-02-11 10:58 | Anesthesiology Progress Note ---
Date of Service February 11, 2021 Anesthesia Post Procedure Vital Signs Vital Signs: Temp Pulse Resp BP BP Pulse Ox 02/11/21 07:56 36.9 C 55 L 18 133/73 95 02/10/21 22:14 36.7 C 60 14 133/84 95 02/10/21 15:38 36.3 C L 69 18 129/72 94 02/10/21 13:31 36.5 C 58 L 16 143/77 H 93 02/10/21 11:39 36.8 C 73 138/86 95 02/10/21 11:00 36.6 C 59 L 14 130/76 95 Pain Intensity Right Upper Abdomen: Pain Intensity: 8 Abdomen: Pain Intensity: 10 Transfer of Care Handoff Completed per policy Notes Mental Status: alert / awake / arousable and participated in evaluation Patient Amnestic to Procedure: Yes Nausea / Vomiting: adequately controlled Pain: adequately controlled Airway Patency, RR, SpO2: stable & adequate BP & HR: stable & adequate Hydration State: stable & adequate Anesthetic Complications: no major complications apparent and Pt Satisfied with anesthetic care
[2021-02-11] MEDS ORDERED: oxyCODONE/ACETAMINOPHEN 5mg/325mg TAB PO PRN (11:46)
--- NOTE | 2021-02-11 12:01 | Discharge Summary ---
Date of Service February 11, 2021 Admission HPI Per Admitting Provider The patient is a 35-year-old female with a past medical history including hypertension, migraine without aura, GERD, kidney stones, peptic ulcer history, asthma, asthma exacerbation attacks, morbid obesity and kidney stones. Work-up in the emergency department included the following significant abnormalities: Hemoglobin 11.6 potassium 3.2 and negative COVID-[address] of abdomen pelvis Patient had a gallbladder ultrasound performed as an outpatient on the morning of 02/07 which showed the following: Suspect a small amount of gallbladder sludge, suspected hepatic steatosis, no calculi or ductal dilatation noted. CT of abdomen and pelvis with contrast performed in ED tonight: Normal appendix, no acute abnormality along the GI tract. Noted hepatic steatosis and hepatomegaly. Gallbladder, pancreas and spleen are unremarkable. No renal or ureteral stones. Right ovarian cyst measuring 2.5 cm Principal Diagnosis Chronic cholecystitis, gall bladder dysfunction Discharge Exam Constitutional well developed, well nourished and + morbidly obese Neck trachea midline, no thyromegaly Respiratory normal respiratory effort, lungs clear to auscultation Cardiovascular RRR, no murmur, no edema Gastrointestinal (Abdomen) Inspection/Auscultation: normal bowel sounds and + abdominal surgical incision (lap bhavin incisions. clean, dry, intact); abdomen not distended Percussion/Palpation: + abdomen tender (surgical sites, mild tenderness), abdomen soft and normal to percussion; no guarding and abdomen not rigid Musculoskeletal no cyanosis or clubbing, extremities motor strength 5/5 Skin no rashes, warm and dry Neurologic patellar DTR's 2+ bilat, sensation intact and PERRL, EOMI, accommodation nl, no face palsy, no dysarthria Psychiatric A+Ox3, euthymic affect Lymphatic no cervical or axillary lymphadenopathy Discharge Data Allergies Allergy/AdvReac Type Severity Reaction Status Date / Time pregabalin [From Lyrica] Allergy Intermediate Hives Verified 02/07/21 21:54 codeine AdvReac Intermediate Nausea Verified 02/10/21 10:42 Root Beer Flavor Allergy Severe Severe Uncoded 02/07/21 21:54 oropharyngeal hives Consultations 02/08/21 00:08 ED Decision to Admit Stat 02/09/21 16:38 Consult General Surgery Routine Procedures Performed Operation Date: 02/10/21 07:00 Actual Procedures p Laparoscopic Cholecystectomy(Not Applicable) - Froilan Campos MD Ordered Studies 02/07/21 21:32 CT abd pelvis IV con only Urgent Hospital Course (1) Right sided abdominal pain: Right upper quadrant/right flank pain/nausea- Outpatient ultrasound suggested possible gallbladder sludge. CT abdomen pelvis negative for any acute abdominal process WBC normal, LFT normal HIDA scan with EF shows no evidence of acute cholecystitis did show low EF of 12%, maybe chronic cholecystitis? Dr. Campos took for lap bhavin on 02/10, no complications, tolerated well advance diet as tolerated, pain control will discharge to home with surgical follow up advance diet Percocet 1 tablet q6 PRN for pain control knows to call surgeon if she has any issues (2) Dysfunctional gallbladder: see above (3) Chronic cholecystitis: see above (4) Nausea: See above Zofran PRN due to dysfunctional gall bladder, now resolved (5) Esophageal reflux: GERD/history of acute peptic ulcer- Continue omeprazole Placed on famotidine 20 mg IV every 12 hours (6) Hypertension: Continue labetalol and verapamil (7) Migraine without aura, not intractable, without status migrainosus: Continue as needed Fioricet, doxepin, topiramate and sumatriptan Hold oxycodone, and nabumetone Continue verapamil Continue as needed tramadol (8) Asthma exacerbation attacks: No acute symptoms Total Time Total Time Spent Total Time Spent (In Minutes): 32 Total Time Includes: Examination of the Patient, Discharge Planning, Medication Reconciliation and Communication With Other Providers Discharge Plan Discharge Items Patient Disposition: Home - Self-Care Reason For Visit: RUQ PAIN Discharge Diagnosis: Chronic cholecystitis (inflammation of gallbladder) Dysfunctional gallbladder Condition on Discharge: Good Goals: advance diet as tolerated use Percocet for pain control follow up with general surgery Activity: Per Instructions section Driving/Machine Use: no driving after taking Percocet Weightbearing: Full weightbearing Non-emergency contact: Primary Care Provider and Surgeon Call non-emergency contact if: you have any medication questions, your symptoms worsen, your pain is not controlled and you have a fever Follow-up/Referrals: Grayson Diaz III, MD [Primary Care Provider] - (1-2 weeks) Froilan Campos MD [Physician] - (call his office for appt, see instructions) Diet: Low Fat Addtl Attending Provider Instructions: Medications: - PERCOCET: can take 1 tablet every 6 hours as needed, try to manage with just one tablet if possible please have caution with how much acetaminophen you take, 3000mg would be the most you should have in 24 hours your Fioricet contains acetaminophen so I would not take that for migraine while on the Percocet please follow instructions below from Dr. Campos and follow up with him Addtl Bottom Turner Provider Instructions: Post-Surgical ~Discharge Instructions Activity Recommendations: - lifting limitation: (25 pounds for 4 weeks), - exercise/sex/sports limit: (nonstrenuous for 2 weeks), - driving or machine use limit: (none for 1 week, until pain free, or no longer taking narcotic medications), - Shower/bathe limit: (january shower beginning Sunday) Diet: - Resume previous diet SPECIAL CARE INSTRUCTIONS: - May shower on Sunday. Sponge bath and wash hair in meantime. Keep dressings clean and dry. On Sunday, remove outer dressings and let water run over area and pat dry. - Leave steri strips on for one week and then remove. - Call the surgeon's office with any questions or concerns - - (ex. temperature higher than 101 degrees F, excessive bleeding or pain). MEDICATIONS: - Resume previous medications unless instructed otherwise by your surgeon. - May alternate extra strength Tylenol and ibuprofen as needed for mild pain -500-650 mg Tylenol every 6 hours as needed - Ibuprofen 600 mg every 6 hours as needed (take with food) - Percocet 1 every 6 hours, as needed for moderate to severe pain FOLLOW UP VISIT: - If not already scheduled, please call the office to schedule a two week follow-up appointment. Office number Pending Studies at Discharge: No Stand-Alone Forms: My [employer], Smoking Cessation Medications and DC Order Prescriptions: New oxycodone-acetaminophen 5-325 mg tablet 1 tab PO Q6H PRN (Reason: pain) Qty: 20 RF: 0 Continued tramadol 50 mg tablet 50 mg PO BID PRN (Reason: headaches) 30 Days Qty: 10 RF: 0 sumatriptan succinate [Imitrex STATdose Pen] 4 mg/0.5 mL pen injector 4 mg subcut ONCE PRN (Reason: migraine headache) Qty: 1 RF: 1 doxepin 100 mg capsule 100 mg PO DAILY Qty: 30 RF: 5 promethazine 25 mg tablet 25 mg PO TID PRN (Reason: Nausea) 30 Days Qty: 30 RF: 1 fvjfnefyzw-rvuxeyaypjpyd-xfeb 50-325-40 mg tablet 1 - 2 tab PO .COMPLEX PRN (Reason: pain) 30 Days Qty: 12 RF: 0 Ajovy Syringe 225 mg/1.5 mL syringe 675 mg SQ .COMPLEX 90 Days Qty: 4.5 RF: 1 doxepin 50 mg capsule 50 mg PO DAILY Qty: 30 RF: 3 topiramate [Topamax] 200 mg tablet 200 mg PO BID 30 Days Qty: 60 RF: 1 verapamil 240 mg tablet extended release 240 mg PO QAM 30 Days Qty: 30 RF: 1 albuterol sulfate [Ventolin HFA] 90 mcg/actuation HFA aerosol inhaler 2 puff inhalation Q6H PRN (Reason: shortness of breath or wheezing) Qty: 8.5 RF: 1 hydrochlorothiazide 25 mg tablet 25 mg PO DAILY Qty: 30 RF: 5 labetalol 100 mg tablet 100 mg PO BID Qty: 60 RF: 5 nabumetone 500 mg tablet 500 mg PO BID PRN (Reason: Pain) Qty: 60 RF: 0 ferrous sulfate 325 mg (65 mg iron) tablet 325 mg PO DAILY Qty: 30 RF: 0 mupirocin 2 % ointment 1 applic topical BID Qty: 15 RF: 2 omeprazole 20 mg Tablet,Delayed Release (Dr/Ec) 20 mg PO DAILY RF: 0 Reyvow 100 mg tablet 100 mg PO DIRECTED PRN (Reason: Migraine Headache) RF: 0 oxycodone 5 mg tablet 5 mg PO Q6 PRN (Reason: pain) Qty: 7 RF: 0 potassium chloride 20 mEq tablet extended release 20 meq PO DAILY Qty: 7 RF: 0 ondansetron HCl [Zofran] 4 mg tablet 4 mg PO Q6H PRN (Reason: nausea and vomiting) Qty: 10 RF: 0 Discharge Orders: Discharge Order (Routine); Ordered 02/11/21 Ordered By: Geoff Vera Admission Data Admit Date/Time: 02/09/21 16:37 Attending Provider: Geoff Vera Admit Provider: Miguel Barry Primary Care Provider: Grayson Diaz III Other Providers: Miguel Barry ; Jermaine Gaona Coding Level of Care Code D/C Day Management >30 mins Diagnoses Right sided abdominal pain R10.9 Dysfunctional gallbladder K82.8 Chronic cholecystitis K81.1 Nausea R11.0 Esophageal reflux K21.9 Hypertension I10 Hypertension type: essential hypertension Migraine without aura, not intractable, without status migrainosus G43.009 Asthma exacerbation attacks J45.901
--- NOTE | 2021-02-11 12:26 | Surgery Progress Note ---
Date of Service F/U S/P lpa bhavin, POD 1 doing ifne, no significant abdominal pain, tolerated diet no nausea, no vomiting, no fever, February 11, 2021 Assessment & Plan (1) Chronic cholecystitis: (2) Dysfunctional gallbladder: pt is a 35 year-old female who was admitted to hospital for acute RUQ pain, HIDA scan EF 12 %, U/S study- gallbladder sludge IM: chronic cholecystitis, dysfunction gallbladder Plan, I recommend to do laparoscopic cholecystectomy, possible open or cholangiogram tomorrow, D/W benefits, risks and alternatives of the surgery, the risk - infection, bleeding, injury other organs, incisional hernia, pt understood, she agrees with the surgery, she signed consent, I answered all questions, NPO after MN, 02/11/2021 12:21PM S/P lap bhavin POD 1 doing fine, pt can be discharged today, keep the dressing on for 4 days, she can take a shower on 02/15/2021, no heavy lifting >25 LBS for 4 weeks, follow up me in 2 weeks, , Thanks, Admission and Anticipated Discharge Date Admission Date: February 09, 2021 Subjective patient went for lap bhavin this morning, tolerated well saw her post op in the morning, no dyspnea, no fever, no nausea she admitted to some post op discomfort but in general feeling better discussed that diet would be per surgery would see how she was feeling tomorrow and possibly discharge Physical Exam Constitutional: WD/WN, vitals as above well developed and well nourished Eyes: PERRL, conjunctivae normal, anicteric sclerae ENMT: external ear and nose normal, oropharynx normal Neck: trachea midline, no thyromegaly Respiratory: normal respiratory effort, lungs clear to auscultation normal respiratory effort Cardiovascular: RRR, no murmur, no edema Rate/Rhythm: regular rate and regular rhythm Gastrointestinal (Abdomen): normal bowel sounds, soft, nontender, no hepatosplenomegaly Percussion/Palpation: + abdomen tender and abdomen soft mild tenderness at incision site, all incisions intact, no redness, no distend, BS + Musculoskeletal: no cyanosis or clubbing, extremities motor strength 5/5 Skin: no rashes, warm and dry Neurologic: awake Psychiatric: Orientation: alert and oriented x 3 Results & Data ([place]) Vital Signs (Past 12 Hours) Vital Signs Temp Pulse Pulse Resp BP BP Pulse Ox 02/11/21 12:06 36.9 C 61 55 L 18 133/73 133/84 95 02/11/21 07:56 36.9 C 55 L 18 133/73 95 Laboratory Results Abnormal lab results 02/10/21 Range/Units 21:32 POC Glucose 115 H (70-99) mg/dl
== END 2021-02-11 15:05 | disposition home or self-care (01) ==
LOC: ED 19:54 → 2N 19:54 → SUATTDRO 02-08 01:21 → 2N 02-08 01:48 → 3N 02-09 03:01

== ENCOUNTER 2021-03-28 10:56 | Inpatient (IN) ==
[2021-03-28] MEDS ORDERED: ONDANSETRON INJ 2 MG/ML 2 ML VIAL IV STA ×2 (13:55→17:28)
[2021-03-28] MEDS ORDERED: MoRPHine SULFATE 10 MG/ML CARP/VIAL IV STA ×2 (13:55→16:22)
[2021-03-28] MEDS ORDERED: SODIUM CHLORIDE 0.9% 1000ML 1,000 ML IV SCH (13:56)
[2021-03-28 14:26] LABS: Basophils # (auto) 0.02 K/uL (0-0.2); Basophils % (auto) 0.3 %; Eosinophils # (auto) 0.24 K/uL (0-0.5); Eosinophils % (auto) 3.8 %; Hemoglobin 11.3 g/dL (12.0-16.0); Lymphocytes # (auto) 1.79 K/uL (1.2-3.4); Lymphocytes % (auto) 28.2 %; Mean Corpuscular Hemoglobin 25.1 pg (25-34); Mean Corpuscular Hgb Conc 32.3 g/dL (32-36); Mean Corpuscular Volume 77.8 fL (80-100); Mean Platelet Volume 10.2 fL (7.4-10.4); Monocytes # (auto) 0.39 K/uL (0.11-0.59); Monocytes % (auto) 6.1 %; Neutrophils # (auto) 3.91 K/uL (1.4-6.5); Neutrophils % (auto) 61.6 %; Platelet Count 263 K/uL (130-400); RDW Coefficient of Variation 18.2 % (11.5-14.5); RDW Standard Deviation 51.7 fL (36.4-46.3); White Blood Count 6.35 K/uL (4.8-10.8)
--- NOTE | 2021-03-28 14:32 | Emergency Department Note ---
History of Present Illness General Chief complaint: Abdominal Pain Stated complaint: RIGHT SIDE PAIN Time Seen by Provider: 03/28/21 13:34 History of Present Illness Maximum Pain Intensity: 10 Patient is a 35-year-old female with past medical history significant for hypertension, migraine headaches, GERD, asthma, who is a 7-week status post laparoscopic cholecystectomy, who presents the emergency department for evaluation of continued right upper quadrant abdominal pain since surgery. Patient underwent lap kellie by Dr. Campos on 02/10/2021. She returns the emergency department today at the advice of Dr. Wing with gastroenterology, because she has had right upper quadrant pain since surgery. The pain is constant, initially had been on and off and a bit more manageable, but for the last 2 days, she has had severe pain that has not gone away. She has been following with her surgeon, he is aware of the pain. She states that they did some blood work and a chest x-ray as an outpatient. She states that the pain is located in the right upper quadrant and what it is severe it wraps around to her back and radiates down to the right lower quadrant. She is associated nausea without vomiting. She states that anything she eats goes through her immediately and gives her diarrhea. She had a temperature of 99.8 F yesterday. No chest pain. No shortness of breath. No urinary symptoms or vaginal bleeding. She was speaking with the staff at Dr. Wing's office today, who recommended that she come to the emergency department. Apparently they think that she might need an ERCP, and cannot get her into the office or set up for the procedure for another several weeks. She currently rates her pain a 10/10. Home Medications Medication Instructions Recorded Confirmed Type omeprazole 20 mg PO DAILY 10/14/18 03/28/21 History ferrous sulfate 325 mg (65 mg 325 mg PO DAILY #30 tab 05/10/19 03/28/21 History iron) tablet nabumetone 500 mg tablet 500 mg PO BID PRN #60 tab 05/10/19 03/28/21 History sumatriptan succinate 4 mg/0.5 mL 4 mg SUBCUT ONCE PRN #1 ml 07/26/20 03/28/21 Rx subcutaneous pen injector albuterol sulfate 90 mcg/actuation 2 puff INHALATION Q6H PRN #8.5 g 09/01/20 0 03/28/21 Rx aerosol inhaler pcvmbmrdtk-kijxajvgjapja-dgzlgwwc 1 - 2 tab PO .COMPLEX PRN 30 Days 09/27/20 03/28/21 Rx 50 mg-325 mg-40 mg tablet #12 tab promethazine 25 mg tablet 25 mg PO TID PRN 30 Days #30 tab 09/27/20 03/28/21 Rx fremanezumab-vfrm 225 mg/1.5 mL 675 mg SQ .COMPLEX 90 Days #4.5 ml 10/08/20 03/28/21 Rx subcutaneous syringe mupirocin 2 % topical ointment 1 applic TOPICAL BID #15 g 10/28/20 03/28/21 Rx labetalol 100 mg tablet 100 mg PO BID #60 tab 12/01/20 03/28/21 Rx Reyvow 100 mg PO DIRECTED PRN 02/01/21 03/28/21 History topiramate 200 mg tablet 200 mg PO BID 30 Days #60 tab 02/07/21 03/28/21 Rx verapamil 240 mg tablet,extended 240 mg PO QAM 30 Days #30 tab 02/07/21 03/28/21 Rx release ondansetron HCl 4 mg tablet 4 mg PO Q6H PRN #20 tab 02/16/21 03/28/21 Rx hydrochlorothiazide 25 mg tablet 25 mg PO DAILY #30 tab 03/21/21 03/28/21 Rx cholestyramine-aspartame 1 ea PO UD 03/28/21 03/28/21 History [Prevalite] doxepin 50 mg PO QPM 03/28/21 03/28/21 History doxepin 100 mg PO QPM 03/28/21 03/28/21 History Allergies Allergy/AdvReac Type Severity Reaction Status Date / Time pregabalin [From Lyrica] Allergy Intermediate Hives Verified 03/28/21 14:23 codeine AdvReac Intermediate Nausea Verified 03/28/21 14:23 Root Beer Flavor Allergy Severe Severe Uncoded 03/28/21 14:23 oropharyngeal hives Past Med/Surg History Medical History Esophageal reflux Kidney stones Migraine headache Migraine without aura, not intractable, without status migrainosus Nausea Right sided abdominal pain Surgical History History of adenoidectomy History of ankle surgery History of esophagogastroduodenoscopy S/P colonoscopy S/P tonsillectomy S/P tooth extraction Family History Father No family history of bleeding disorder ? of bleeding disorder. Also had to have nose cauterized in the past Mother Asthma Grandfather (Paternal) Hypertension Grandmother (Paternal) Hypertension Breast cancer Paternal great grandmother Heart disease Grandfather (Paternal) Stroke Paternal great grandfather Family/Other Heart disease Paternal niece Other No family history of adverse response to anesthesia No pertinent family history Social History Smoking Status: Never smoker Second Hand Exposure: Yes; Hx Alcohol Use: Yes Alcohol Intake Frequency: Monthly or Less Hx Substance Use: No Preferred Language: Ivorian Communication Ability: Effective Wireless Retail Manager Required: No Beliefs That Will Affect Care: None marital status: Single Current Living Situation: Alone current occupational status: employed 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 Feels Safe at Home: Yes Assistive Devices: None Review of Systems A total of 10 systems reviewed and were otherwise negative Physical Exam Vital Signs Vital Signs - 24 hr 03/28/21 11:21 03/28/21 14:48 03/28/21 16:00 Temperature 36.7 C Temperature Source Oral Pulse Rate 77 67 Pulse Rate [Left] 64 Pulse Rate from SpO2 Sensor 67 Pulse Rhythm [Left] Regular Pulse Strength [Left] Normal Respiratory Rate 20 20 17 Respiratory Effort / Characteristics Non-Labored Spontaneous Non-Labored Spontaneous Respiratory Depth Normal Normal Respiratory Pattern Regular Blood Pressure 150/85 H 146/69 H Blood Pressure [Right Arm] 109/71 Blood Pressure Mean 106 94 Blood Pressure Mean [Right Arm] 83 Blood Pressure Position [Right Arm] Lying Pulse Oximetry 97 99 94 Oxygen Delivery Method Room Air Room Air Sepsis Recent Fever Within 48 Hours No Sepsis New/Unexplained Change in Mental Status N/A Sepsis Action Taken by Nursing No Action Required 03/28/21 16:14 03/28/21 16:15 03/28/21 16:30 Temperature Temperature Source Pulse Rate 66 63 Pulse Rate [Left] 66 Pulse Rate from SpO2 Sensor 67 63 Pulse Rhythm [Left] Regular Pulse Strength [Left] Normal Respiratory Rate 12 17 16 Respiratory Effort / Characteristics Non-Labored Spontaneous Respiratory Depth Normal Respiratory Pattern Blood Pressure 150/66 H 142/110 H Blood Pressure [Right Arm] 146/69 H Blood Pressure Mean 94 120 Blood Pressure Mean [Right Arm] 94 Blood Pressure Position [Right Arm] Pulse Oximetry 93 94 95 Oxygen Delivery Method Room Air Sepsis Recent Fever Within 48 Hours Sepsis New/Unexplained Change in Mental Status Sepsis Action Taken by Nursing 03/28/21 16:45 03/28/21 17:01 03/28/21 17:15 Temperature Temperature Source Pulse Rate 66 69 69 Pulse Rate [Left] Pulse Rate from SpO2 Sensor 67 69 70 Pulse Rhythm [Left] Pulse Strength [Left] Respiratory Rate 17 17 15 Respiratory Effort / Characteristics Respiratory Depth Respiratory Pattern Blood Pressure 138/94 146/80 H 126/71 Blood Pressure [Right Arm] Blood Pressure Mean 108 102 89 Blood Pressure Mean [Right Arm] Blood Pressure Position [Right Arm] Pulse Oximetry 95 98 95 Oxygen Delivery Method Sepsis Recent Fever Within 48 Hours Sepsis New/Unexplained Change in Mental Status Sepsis Action Taken by Nursing 03/28/21 17:30 03/28/21 17:48 03/28/21 17:50 Temperature Temperature Source Pulse Rate 70 71 70 Pulse Rate [Left] Pulse Rate from SpO2 Sensor 71 72 70 Pulse Rhythm [Left] Pulse Strength [Left] Respiratory Rate 14 17 17 Respiratory Effort / Characteristics Respiratory Depth Respiratory Pattern Blood Pressure 112/74 Blood Pressure [Right Arm] Blood Pressure Mean 86 Blood Pressure Mean [Right Arm] Blood Pressure Position [Right Arm] Pulse Oximetry 88 L 90 90 Oxygen Delivery Method Sepsis Recent Fever Within 48 Hours Sepsis New/Unexplained Change in Mental Status Sepsis Action Taken by Nursing 03/28/21 18:00 03/28/21 18:10 03/28/21 18:20 Temperature Temperature Source Pulse Rate 72 71 73 Pulse Rate [Left] Pulse Rate from SpO2 Sensor 72 71 73 Pulse Rhythm [Left] Pulse Strength [Left] Respiratory Rate 17 20 18 Respiratory Effort / Characteristics Respiratory Depth Respiratory Pattern Blood Pressure 121/72 Blood Pressure [Right Arm] Blood Pressure Mean 88 Blood Pressure Mean [Right Arm] Blood Pressure Position [Right Arm] Pulse Oximetry 91 92 89 L Oxygen Delivery Method Sepsis Recent Fever Within 48 Hours Sepsis New/Unexplained Change in Mental Status Sepsis Action Taken by Nursing 03/28/21 18:30 03/28/21 18:40 03/28/21 18:50 Temperature Temperature Source Pulse Rate 68 71 69 Pulse Rate [Left] Pulse Rate from SpO2 Sensor 68 72 68 Pulse Rhythm [Left] Pulse Strength [Left] Respiratory Rate 15 17 16 Respiratory Effort / Characteristics Respiratory Depth Respiratory Pattern Blood Pressure Blood Pressure [Right Arm] Blood Pressure Mean Blood Pressure Mean [Right Arm] Blood Pressure Position [Right Arm] Pulse Oximetry 91 98 94 Oxygen Delivery Method Sepsis Recent Fever Within 48 Hours Sepsis New/Unexplained Change in Mental Status Sepsis Action Taken by Nursing 03/28/21 19:00 Temperature Temperature Source Pulse Rate 71 Pulse Rate [Left] Pulse Rate from SpO2 Sensor 71 Pulse Rhythm [Left] Pulse Strength [Left] Respiratory Rate 18 Respiratory Effort / Characteristics Respiratory Depth Respiratory Pattern Blood Pressure Blood Pressure [Right Arm] Blood Pressure Mean Blood Pressure Mean [Right Arm] Blood Pressure Position [Right Arm] Pulse Oximetry 93 Oxygen Delivery Method Sepsis Recent Fever Within 48 Hours Sepsis New/Unexplained Change in Mental Status Sepsis Action Taken by Nursing CONSTITUTIONAL: Patient is an obese 35-year-old female who is awake and alert and in mild distress due to her stated complaint. She is tearful. EYES: Pupils equal, round, reactive to light and accommodation. EOMs intact without nystagmus. Sclera are anicteric. ENT: Tympanic membranes intact, with normal landmarks. External canals are clear. Oral and nasopharynx are clear. Mucous membranes are moist, no lesions, tongue and gums appear normal. CARDIOVASCULAR: Regular rate and rhythm. Peripheral pulses easily palpable. RESPIRATORY: Breath sounds equal and clear to auscultation. ABDOMEN: Bowel sounds are present. Well-healed surgical scars are noted. Abdomen is soft, obese, tender in the epigastric and right upper quadrant and right mid abdomen, without guarding or rebound. INTEGUMENTARY: No lesions or rash, normal skin turgor. LYMPH: No lymphadenopathy. Course Course The patient was seen and assessed as above. Old records were reviewed. She was referred to the emergency department by [facility], as they are trying to evaluate the ongoing right upper quadrant pain status post laparoscopic cholecystectomy. IV lock was initiated and laboratory studies were collected. CBC with differential, CMP, lipase, urinalysis, urine test were ordered. CT scan of the abdomen and pelvis with IV contrast was ordered. She was hydrated with normal saline solution, given a liter bolus, then 250 cc/h. She is medicated with Zofran 4 mg and morphine 6 mg IV. Laboratory studies note a normal white count at 6300. H&H 11.3 and 35.0, platelet count 263,000. Normal differential. Electrolytes note a potassium of 2.8, otherwise electrolytes are within normal limits. BUN 16, creatinine 1.12. Bilirubin, transaminases and lipase are all within normal limits. Urine microscopy is a contaminated sample with greater than 30 epithelial cells, there is only a few white cells and 1+ bacteria, urine culture is pending. CT scan of the abdomen pelvis with IV contrast notes no acute process. There is minimal stranding within the cholecystectomy bed with which is within normal limits for her postsurgical state, no operative bed fluid collection. No biliary ductal dilatation appreciated. No evidence for bowel obstruction or bowel wall thickening. Patient was reassessed when she returned from CT, and was still quite uncomfortable. She was given an additional dose of morphine 6 mg IV. 2 X 10 mEq K riders were hung. Laboratory and CT scan findings were reviewed with her. I did discuss the patient with ANURAG Schuler with [facility]. She agrees with further work-up including possible EUS or ERCP. Consultation was placed with the [facility] Hospitalist group for further care and management. Please refer to admission H&P and orders for further information. Administered Medications Sodium Chloride (Nss 1000ml) 1,000 mls @ 250 mls/hr IV .Q4H MEKA Stop: 04/27/21 13:59 Last Infusion: 03/28/21 20:08 Dose: 0 mls/hr Documented by: [id number] Admin: 03/28/21 16:06 Dose: 250 mls/hr Documented by: [id number] Discontinued Medications Sodium Chloride (Nss 1000ml) 1,000 mls @ 999 mls/hr IV .Q1H1M MEKA Stop: 03/28/21 14:56 Last Infusion: 03/28/21 15:58 Dose: 0 mls/hr Documented by: [id number] Admin: 03/28/21 14:15 Dose: 999 mls/hr Documented by: [id number] Potassium Chloride (K Juan / Wtr) 10 meq in 100 mls @ 100 mls/hr IV Q1H MEKA Stop: 03/28/21 17:59 Last Infusion: 03/28/21 19:00 Dose: 0 mls/hr Documented by: [id number] Admin: 03/28/21 17:39 Dose: 100 mls/hr Documented by: [id number] Infusion: 03/28/21 17:39 Dose: 0 mls/hr Documented by: [id number] Admin: 03/28/21 16:06 Dose: 100 mls/hr Documented by: [id number] Ioversol (Optiray 320 100ml) 94 ml IV ONCE ONE Stop: 03/28/21 15:47 Last Admin: 03/28/21 15:46 Dose: 94 ml Documented by: [id number] Morphine Sulfate (Morphine Sulfate 10 Mg/Ml Carp/Vial) 6 mg IV NOW STA Stop: 03/28/21 13:56 Last Admin: 03/28/21 14:14 Dose: 6 mg Documented by: [id number] Morphine Sulfate (Morphine Sulfate 10 Mg/Ml Carp/Vial) 6 mg IV NOW STA Stop: 03/28/21 16:23 Last Admin: 03/28/21 16:31 Dose: 6 mg Documented by: [id number] Ondansetron HCl (Ondansetron Inj 2 Mg/Ml 2 Ml Vial) 4 mg IV NOW STA Stop: 03/28/21 13:56 Last Admin: 03/28/21 14:14 Dose: 4 mg Documented by: [id number] Ondansetron HCl (Ondansetron Inj 2 Mg/Ml 2 Ml Vial) 4 mg IV NOW STA Stop: 03/28/21 17:29 Last Admin: 03/28/21 17:46 Dose: 4 mg Documented by: [id number] Medical Decision Making Differential Diagnosis Differential diagnoses entertained included appendicitis, ovarian cyst, ovarian torsion, UTI, obstruction, inflammatory bowel disease, renal colic, PUD, pancreatitis, biliary pathology, hernia, constipation among others. Medical Records Attestation: I reviewed the patient's medical records. Home Medications Current Medication List: was personally reviewed by me Laboratory Data Attestation: I reviewed the patient's lab results. Result diagrams: 03/28/21 14:02 03/28/21 14:02 Lab Results 03/28/21 03/28/21 03/28/21 Range/Units 14:02 14:02 14:08 WBC 6.35 (4.8-10.8) K/uL RBC 4.50 (4.2-5.4) M/uL Hgb 11.3 L (12.0-16.0) g/dL Hct 35.0 L (37-47) % MCV 77.8 L (80-100) fL MCH 25.1 (25-34) pg MCHC 32.3 (32-36) g/dL RDW Std Deviation 51.7 H (36.4-46.3) fL RDW Coeff of Lea 18.2 H (11.5-14.5) % Plt Count 263 (130-400) K/uL MPV 10.2 (7.4-10.4) fL Immature Gran % (Auto) 0.0 % Neut % (Auto) 61.6 % Lymph % (Auto) 28.2 % Dewitt % (Auto) 6.1 % Eos % (Auto) 3.8 % Baso % (Auto) 0.3 % Neut # (Auto) 3.91 (1.4-6.5) K/uL Lymph # (Auto) 1.79 (1.2-3.4) K/uL Dewitt # (Auto) 0.39 (0.11-0.59) K/uL Eos # (Auto) 0.24 (0-0.5) K/uL Baso # (Auto) 0.02 (0-0.2) K/uL Immature Gran # (Auto) 0.00 (0.00-0.02) K/uL Sodium 138 (136-145) mmol/L Potassium 2.8 L (3.5-5.1) mmol/L Chloride 104 (98-107) mmol/L Carbon Dioxide 27 (21-32) mmol/L Anion Gap 7.0 (3-11) BUN 16 (7-18) mg/dl Creatinine 1.12 (0.6-1.2) mg/dl Est Cr Clr Drug Dosing 93.6 ml/min Est GFR ( Amer) 73.2 ml/min Est GFR (Non-Af Amer) 63.1 ml/min BUN/Creatinine Ratio 14.2 (10-20) Glucose 96 (70-99) mg/dl Calcium 8.8 (8.5-10.1) mg/dl Total Bilirubin 0.3 (0.2-1) mg/dl AST 24 (15-37) U/L ALT 36 (12-78) U/L Alkaline Phosphatase 74 (45-117) U/L Total Protein 7.2 (6.4-8.2) gm/dl Albumin 3.6 (3.4-5.0) gm/dl Globulin 3.6 (2.5-4.0) gm/dl Albumin/Globulin Ratio 1.0 (0.9-2) Lipase 124 (73-393) U/L Urine Color Yellow Urine Appearance Cloudy A (Clear) Urine pH 5.0 (4.5-7.5) Ur Specific [place] 1.024 (1.000-1.030) Urine Protein Negative (Negative) Urine Glucose (UA) Negative (Negative) Urine Ketones Negative (Negative) Urine Blood Negative (Negative) Urine Nitrite Negative (Negative) Urine Bilirubin Negative (Negative) Urine Urobilinogen Negative (Negative) Ur Leukocyte Esterase Negative (Negative) Urine WBC (Auto) 5-10 H (0-5) /hpf Urine RBC (Auto) 10-30 H (0-4) /hpf U Hyaline Cast (Auto) 1-5 (0-5) /lpf U Epithel Cells (Auto) >30 H (0-5) /lpf Urine Bacteria (Auto) 1+ H (Negative) COVID-19 Eval Order SARS-CoV-2 (PCR) (Negative) 03/28/21 03/28/21 Range/Units 16:45 16:45 WBC (4.8-10.8) K/uL RBC (4.2-5.4) M/uL Hgb (12.0-16.0) g/dL Hct (37-47) % MCV (80-100) fL MCH (25-34) pg MCHC (32-36) g/dL RDW Std Deviation (36.4-46.3) fL RDW Coeff of Lea (11.5-14.5) % Plt Count (130-400) K/uL MPV (7.4-10.4) fL Immature Gran % (Auto) % Neut % (Auto) % Lymph % (Auto) % Dewitt % (Auto) % Eos % (Auto) % Baso % (Auto) % Neut # (Auto) (1.4-6.5) K/uL Lymph # (Auto) (1.2-3.4) K/uL Dewitt # (Auto) (0.11-0.59) K/uL Eos # (Auto) (0-0.5) K/uL Baso # (Auto) (0-0.2) K/uL Immature Gran # (Auto) (0.00-0.02) K/uL Sodium (136-145) mmol/L Potassium (3.5-5.1) mmol/L Chloride (98-107) mmol/L Carbon Dioxide (21-32) mmol/L Anion Gap (3-11) BUN (7-18) mg/dl Creatinine (0.6-1.2) mg/dl Est Cr Clr Drug Dosing ml/min Est GFR ( Amer) ml/min Est GFR (Non-Af Amer) ml/min BUN/Creatinine Ratio (10-20) Glucose (70-99) mg/dl Calcium (8.5-10.1) mg/dl Total Bilirubin (0.2-1) mg/dl AST (15-37) U/L ALT (12-78) U/L Alkaline Phosphatase (45-117) U/L Total Protein (6.4-8.2) gm/dl Albumin (3.4-5.0) gm/dl Globulin (2.5-4.0) gm/dl Albumin/Globulin Ratio (0.9-2) Lipase (73-393) U/L Urine Color Urine Appearance (Clear) Urine pH (4.5-7.5) Ur Specific [place] (1.000-1.030) Urine Protein (Negative) Urine Glucose (UA) (Negative) Urine Ketones (Negative) Urine Blood (Negative) Urine Nitrite (Negative) Urine Bilirubin (Negative) Urine Urobilinogen (Negative) Ur Leukocyte Esterase (Negative) Urine WBC (Auto) (0-5) /hpf Urine RBC (Auto) (0-4) /hpf U Hyaline Cast (Auto) (0-5) /lpf U Epithel Cells (Auto) (0-5) /lpf Urine Bacteria (Auto) (Negative) COVID-19 Eval Order Covid19 at [facility] SARS-CoV-2 (PCR) NEGATIVE (Negative) Imaging Data Attestation: I personally reviewed and interpreted this imaging study as follows: Radiologist's Impression: Abdomen/Pelvis CT 03/28/21 13:55 CT OF THE ABDOMEN AND PELVIS WITH CONTRAST CLINICAL HISTORY: RUQ PAIN S/P KELLIE 02/10/2021 COMPARISON STUDY: CT of the abdomen and pelvis February 07, 2021. Hepatobiliary scan February 09, 2021. TECHNIQUE: Following IV administration of 94 mL of Optiray, axial images of the abdomen and pelvis were obtained from the lung bases to the proximal femurs. Images were reviewed in the axial, sagittal, and coronal planes. IV contrast was administered without complication. Automated exposure control was utilized for the study. A dose lowering technique was utilized adhering to the principles of ALARA. CT DOSE: 1139.59 mGycm FINDINGS: Lung bases are unremarkable. No pneumatosis, free air or portal venous gas is present. Hepatic steatosis is noted. There is no biliary ductal dilatation status post cholecystectomy. There is no operative bed fluid collection. There is minimal stranding within the cholecystectomy bed. No peripancreatic infiltration is present. The size of the spleen is at the upper limits of normal. 1.3 cm fat-containing left adrenal lesion represents a myelolipoma. This is benign. There is no hydronephrosis. The kidneys are unremarkable. The caliber and wall thickness of small and large bowel are normal. The appendix is normal. There is no ascites. There is no lymph adenopathy. No acute fracture or suspicious lesion is identified within the visualized skeletal structures. IMPRESSION: 1. No acute process within the abdomen or pelvis. 2. Minimal stranding within the cholecystectomy bed which is within normal limits in the early postoperative setting. No operative bed fluid collection. No biliary ductal dilatation. 3. Hepatic steatosis. 4. No bowel obstruction. No bowel wall thickening. Normal appendix. ACT 112: Negative or not required by law. Electronically signed by: Matthew Alvarez M.D. 03/28/2021 3:58 PM MDM Narrative See ED Course. Impression & Plan Right upper quadrant abdominal pain, Acute hypokalemia Discharge Plan Visit Data Chief Complaint: Abdominal Pain Stated Complaint: RIGHT SIDE PAIN ED Provider: Chuy Umana ED Midlevel Provider: Carter Gutierrez Discharge Problem: Right upper quadrant abdominal pain, Acute hypokalemia Patient Disposition: Being Evaluated by Hospitalist
[2021-03-28 14:47] LABS: Albumin Level 3.6 gm/dl (3.4-5.0); BUN Creatinine Ratio 14.2 (10-20); Calcium 8.8 mg/dl (8.5-10.1); Creatinine Clr Calc Pharmacy 93.6 ml/min; Est GFR (African American) 73.2 ml/min; Est GFR (Non-African American) 63.1 ml/min; Potassium 2.8 mmol/L (3.5-5.1)
[2021-03-28 14:49] LABS: Bilirubin,Total 0.3 mg/dl (0.2-1); Globulin 3.6 gm/dl (2.5-4.0); Total Protein 7.2 gm/dl (6.4-8.2)
[2021-03-28 15:03] LABS: Appearance Urine Cloudy (Clear); Bacteria Urine Automated 1+ (Negative); Bilirubin Urine Negative (Negative); Blood Urine Negative (Negative); Color Urine Yellow; Epithelial Cell Urine Auto >30 /lpf (0-5); Glucose Urine UA Negative (Negative); Ketones Urine Negative (Negative); Leukocyte Esterase Urine Negative (Negative); Nitrite Urine Negative (Negative); Protein Urine Negative (Negative); Specific Gravity Urine 1.024 (1.000-1.030); Urobilinogen Urine Negative (Negative)
[2021-03-28] MEDS ORDERED: OPTIRAY 320 100ml IV ONE (15:46)
--- NOTE | 2021-03-28 15:59 | CT Scan Report ---
CT OF THE ABDOMEN AND PELVIS WITH CONTRAST CLINICAL HISTORY: RUQ PAIN S/P KELLIE 02/10/2021 COMPARISON STUDY: CT of the abdomen and pelvis February 07, 2021. Hepatobiliary scan February 09, 2021. TECHNIQUE: Following IV administration of 94 mL of Optiray, axial images of the abdomen and pelvis we re obtained from the lung bases to the proximal femurs. Images were reviewed in the axial, sagittal, and coronal planes. IV contrast was administered without complication. Automated exposure control wa s utilized for the study. A dose lowering technique was utilized adhering to the principles of ALARA . CT DOSE: 1139.59 mGycm FINDINGS: Lung bases are unremarkable. No pneumatosis, free air or portal venous gas is present. Hepa tic steatosis is noted. There is no biliary ductal dilatation status post cholecystectomy. There is n o operative bed fluid collection. There is minimal stranding within the cholecystectomy bed. No perip ancreatic infiltration is present. The size of the spleen is at the upper limits of normal. 1.3 cm fa t-containing left adrenal lesion represents a myelolipoma. This is benign. There is no hydronephrosis . The kidneys are unremarkable. The caliber and wall thickness of small and large bowel are normal. T he appendix is normal. There is no ascites. There is no lymphadenopathy. No acute fracture or suspici ous lesion is identified within the visualized skeletal structures. IMPRESSION: 1. No acute process within the abdomen or pelvis. 2. Minimal stranding within the cholecystectomy bed which is within normal limits in the early postop erative setting. No operative bed fluid collection. No biliary ductal dilatation. 3. Hepatic steatosis. 4. No bowel obstruction. No bowel wall thickening. Normal appendix. ACT 112: Negative or not required by law. Electronically signed by: Matthew Alvarez M.D. 03/28/2021 3:58 PM
[2021-03-28] MEDS: POTASSIUM CHLORIDE / WTR 10 MEQ/100 ML PLCT IV SCH ×2 (16:06→17:39)
[2021-03-28] MEDS: SODIUM CHLORIDE 0.9% 1000ML 1,000 ML IV SCH ×2 (16:06→21:19)
--- NOTE | 2021-03-28 19:09 | History & Physical Report ---
Date of Service March 28, 2021 Assessment & Plan (1) S/P laparoscopic cholecystectomy: As per HPI - CT of abdomen without acute pathology - GI consult placed for further evaluation - Clear diet for diarrhea and nausea - LR x 1 liter overnight (2) Right upper quadrant abdominal pain: This pain appears to be more musculoskeletal in nature; however with general right upper quad discomfort - Continue with tylenol - Lidoderm - can add heat packs if needed - Advanced imaging per GI (3) Acute hypokalemia: 10 meq in EMD IV - 40 meq po- if vomiting occurs will replace IV overnight - Likely related to her decreased PO intake (4) Hypertension: Continue labatelol, HCTZ, Verapmil - combination benefit with migraine therapy (5) Migraine without aura, not intractable, without status migrainosus: Patient on multiple abortive and prophylactic medications - review in house - Continue with above multimodal - Continue Topamax - Continue Nembutal - Continue efhzgcawghq-xznwzvqdluxea-gflyykq (6) Esophageal reflux: Continue omeprazole - continue zofran (7) Fatty liver: Likely related to obesity, patient does drink social ETOH by report - patient may benefit from further risk reduction of her obesity with referral to obesity medicine History of Present Illness Primary Care Provider: Grayson Diaz MD 35 YOF with past medical history of: cholecystectomy in January 2021, intractable migraines, obesity, depression, HTN, GERD, and asthma. Patient came to the EMD today from the referral of gastroenterology Dr. Wing for continued pain and diarrhea following cholecystectomy. The patient was referred to gastroenterology from general surgery Dr. Campos who has been following the patient in his office following her kellie in January. The patient continues to experience right upper quadrant pain. The pain is located under her right breast and will run along her side and radiate to her lower abdomen on the medial posterior side. This pain gets worse with activity or movement and has been somewhat manageable with Tylenol/Motrin and whatever Percocet she had left over from surgery. She feels as the pain never goes away and will even hurt her when she rolls over in the middle of the night. She may feel a "twinge" of pain when eating, but for the most part this is not associated with her intake of food or water. This pain is associated with nausea because it hurts and the worst it gets is a 10 and the best it gets is a 4/10. The patient is also still experiencing the diarrhea she had prior to surgery without improvement. She reports that about 15-30 minutes after eating she has to go to the bathroom. She reports that she modified her diet to mostly fruits and vegetables with no change. Her stools are mostly liquid with stools floating on top of the water, no blood, no mucous noted. She does not endorse undigested material in the stools. As above the patient was to be referred to GI for possible evaluation and intervention into her abdominal pain she thought there may be mention of ultrasound or imaging. The patient had a CT scan performed of her abdomen in the EMD with no acute or infectious process noted. She will be observed overnight, continued with IV hydration and pain control. GI will be consulted. Allergies Allergy/AdvReac Type Severity Reaction Status Date / Time pregabalin [From Lyrica] Allergy Intermediate Hives Verified 03/28/21 14:23 codeine AdvReac Intermediate Nausea Verified 03/28/21 14:23 Root Beer Flavor Allergy Severe Severe Uncoded 03/28/21 14:23 oropharyngeal hives Home Medications Medication Instructions Recorded Confirmed Type omeprazole 20 mg PO DAILY 10/14/18 03/28/21 History ferrous sulfate 325 mg (65 mg 325 mg PO DAILY #30 tab 05/10/19 03/28/21 History iron) tablet nabumetone 500 mg tablet 500 mg PO BID PRN #60 tab 05/10/19 03/28/21 History sumatriptan succinate 4 mg/0.5 mL 4 mg SUBCUT ONCE PRN #1 ml 07/26/20 03/28/21 Rx subcutaneous pen injector albuterol sulfate 90 mcg/actuation 2 puff INHALATION Q6H PRN #8.5 g 09/01/20 03/28/21 Rx aerosol inhaler tzmikjtzxe-zjlwxvljlepfj-lezzhhpj 1 - 2 tab PO .COMPLEX PRN 30 Days 09/27/20 03/28/21 Rx 50 mg-325 mg-40 mg tablet #12 tab promethazine 25 mg tablet 25 mg PO TID PRN 30 Days #30 tab 09/27/20 03/28/21 Rx fremanezumab-vfrm 225 mg/1.5 mL 675 mg SQ .COMPLEX 90 Days #4.5 ml 10/08/20 03/28/21 Rx subcutaneous syringe mupirocin 2 % topical ointment 1 applic TOPICAL BID #15 g 10/28/20 03/28/21 Rx labetalol 100 mg tablet 100 mg PO BID #60 tab 12/01/20 03/28/21 Rx Reyvow 100 mg PO DIRECTED PRN 02/01/21 03/28/21 History topiramate 200 mg tablet 200 mg PO BID 30 Days #60 tab 02/07/21 03/28/21 Rx verapamil 240 mg tablet,extended 240 mg PO QAM 30 Days #30 tab 02/07/21 03/28/21 Rx release ondansetron HCl 4 mg tablet 4 mg PO Q6H PRN #20 tab 02/16/21 03/28/21 Rx hydrochlorothiazide 25 mg tablet 25 mg PO DAILY #30 tab 03/21/21 03/28/21 Rx cholestyramine-aspartame 1 ea PO UD 03/28/21 03/28/21 History [Prevalite] doxepin 50 mg PO QPM 03/28/21 03/28/21 History doxepin 100 mg PO QPM 03/28/21 03/28/21 History Past Med/Surg History Medical History Esophageal reflux Kidney stones Migraine headache Migraine without aura, not intractable, without status migrainosus Nausea Right sided abdominal pain Surgical History History of adenoidectomy History of ankle surgery History of esophagogastroduodenoscopy S/P colonoscopy S/P tonsillectomy S/P tooth extraction Family History Father No family history of bleeding disorder ? of bleeding disorder. Also had to have nose cauterized in the past Mother Asthma Grandfather (Paternal) Hypertension Grandmother (Paternal) Hypertension Breast cancer Paternal great grandmother Heart disease Grandfather (Paternal) Stroke Paternal great grandfather Family/Other Heart disease Paternal niece Other No family history of adverse response to anesthesia No pertinent family history Social History Smoking Status: Never smoker Second Hand Exposure: Yes; Hx Alcohol Use: Yes Alcohol type: wine Alcohol Intake Frequency: Monthly or Less Hx Substance Use: No Preferred Language: Syrian Communication Ability: Effective Onshore Diver Required: No Beliefs That Will Affect Care: None marital status: Single Current Living Situation: Parent current occupational status: employed 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 Other Information That Helps Us Care for You: No Feels Safe at Home: Yes Safety Concerns: Feels Safe At This Time Assistive Devices: Glasses Review of Systems Review of Systems: REVIEW OF SYSTEMS: Constitutional: (+) temp 99.9 yesterday, No fever, sweats or chills Eyes: No diplopia, no worsening or blurred vision ENT: normal hearing, no trouble swallowing Respiratory: No cough, sputum, dyspnea at rest or on exertion Cardiovascular: No chest pain, tightness or palpitations Abdomen: (+) pain, nausea, diarrhea, loss of appetite, NO vomiting,or constipation Musculoskeletal: (+) pain as per HPI, joint pain, calf pain, swelling Neurologic: (+) migraines that are frequent, No weakness, numbness/tingling, or balance problems Psychiatric: (+) anxiety or depression Skin: No rash or itch Physical Exam Physical Exam: PHYSICAL EXAM: General: awake, alert, no apparent distress, comfortable upon entering room. Did get teary eyed when reporting about pain frequency and depression Head: Normocephalic, atraumatic ENT: PERRLA, EOMI, no pharyngeal exudate, mucous membranes dry Neuro: AAO x 3, speech clear and appropriate, strength intact bilaterally 5/5, sensation intact and equal all extremities and dermatomes, no pronator drift Chest: equal rise and fall of the chest, no accessory muscle use, no heaves or thrills, Clear to auscultation with mild expiratory wheeze, on room air, Cardiac: Regular rate and rhythm, telemetry reviewed-NSR, skin warm dry, cap refill <3 seconds, peripheral pulses +2 no JVD, no murmur, no edema GI: NABS x 4 quadrants, soft, tender to deep palpation that makes her right side hurt, no rebound, tympany on percussion : Spontaneously voiding, no pain, no CVA tenderness, MSK/Extremities: Pain with palpation to last 2-3 ribs on right side that tracks around to her back, the pain is reproducible with palpation and movement. Normal inspection, no peripheral edema or erythema, calfs nontender to palpation. Psych: Normal mood and affect Skin: no rash or erythema Results & Data Results & Data ([facility]) Vital Signs (Past 12 Hours) Vital Signs Temp Pulse Pulse Resp BP BP Pulse Ox 03/28/21 17:30 70 14 112/74 88 L 03/28/21 17:15 69 15 126/71 95 03/28/21 17:01 69 17 146/80 H 98 03/28/21 16:45 66 17 138/94 95 03/28/21 16:30 63 16 142/110 H 95 03/28/21 16:15 66 17 150/66 H 94 03/28/21 16:14 66 12 146/69 H 93 03/28/21 16:00 67 17 146/69 H 94 03/28/21 14:48 64 20 109/71 99 03/28/21 11:21 36.7 C 77 20 150/85 H 97 Laboratory Results Abnormal lab results 03/28/21 03/28/21 03/28/21 Range/Units 14:02 14:02 14:08 Hgb 11.3 L (12.0-16.0) g/dL Hct 35.0 L (37-47) % MCV 77.8 L (80-100) fL RDW Std Deviation 51.7 H (36.4-46.3) fL RDW Coeff of Lea 18.2 H (11.5-14.5) % Potassium 2.8 L (3.5-5.1) mmol/L Urine Appearance Cloudy A (Clear) Urine WBC (Auto) 5-10 H (0-5) /hpf Urine RBC (Auto) 10-30 H (0-4) /hpf U Epithel Cells (Auto) >30 H (0-5) /lpf Urine Bacteria (Auto) 1+ H (Negative) Diagnostic Findings Abdomen/Pelvis CT 03/28/21 13:55 CT OF THE ABDOMEN AND PELVIS WITH CONTRAST CLINICAL HISTORY: RUQ PAIN S/P KELLIE 02/10/2021 COMPARISON STUDY: CT of the abdomen and pelvis February 07, 2021. Hepatobiliary scan February 09, 2021. TECHNIQUE: Following IV administration of 94 mL of Optiray, axial images of the abdomen and pelvis were obtained from the lung bases to the proximal femurs. Images were reviewed in the axial, sagittal, and coronal planes. IV contrast was administered without complication. Automated exposure control was utilized for the study. A dose lowering technique was utilized adhering to the principles of ALARA. CT DOSE: 1139.59 mGycm FINDINGS: Lung bases are unremarkable. No pneumatosis, free air or portal venous gas is present. Hepatic steatosis is noted. There is no biliary ductal dilatation status post cholecystectomy. There is no operative bed fluid collection. There is minimal stranding within the cholecystectomy bed. No peripancreatic infiltration is present. The size of the spleen is at the upper limits of normal. 1.3 cm fat-containing left adrenal lesion represents a myelolipoma. This is benign. There is no hydronephrosis. The kidneys are unremarkable. The caliber and wall thickness of small and large bowel are normal. The appendix is normal. There is no ascites. There is no lymphadenopathy. No acute fracture or suspicious lesion is identified within the visualized skeletal structures. IMPRESSION: 1. No acute process within the abdomen or pelvis. 2. Minimal stranding within the cholecystectomy bed which is within normal limits in the early postoperative setting. No operative bed fluid collection. No biliary ductal dilatation. 3. Hepatic steatosis. 4. No bowel obstruction. No bowel wall thickening. Normal appendix. Electronically signed by: Matthew Alvarez M.D. 03/28/2021 3:58 PM Medications Administered Sodium Chloride (Nss 1000ml) 1,000 mls @ 250 mls/hr IV .Q4H MEKA Stop: 04/27/21 13:59 Last Admin: 03/28/21 16:06 Dose: 250 mls/hr Documented by: [id number] Discontinued Medications Sodium Chloride (Nss 1000ml) 1,000 mls @ 999 mls/hr IV .Q1H1M MEKA Stop: 03/28/21 14:56 Last Infusion: 03/28/21 15:58 Dose: 0 mls/hr Documented by: [id number] Admin: 03/28/21 14:15 Dose: 999 mls/hr Documented by: [id number] Potassium Chloride (K Juan / Wtr) 10 meq in 100 mls @ 100 mls/hr IV Q1H MEKA Stop: 03/28/21 17:59 Last Infusion: 03/28/21 19:00 Dose: 0 mls/hr Documented by: [id number] Admin: 03/28/21 17:39 Dose: 100 mls/hr Documented by: [id number] Infusion: 03/28/21 17:39 Dose: 0 mls/hr Documented by: [id number] Admin: 03/28/21 16:06 Dose: 100 mls/hr Documented by: [id number] Ioversol (Optiray 320 100ml) 94 ml IV ONCE ONE Stop: 03/28/21 15:47 Last Admin: 03/28/21 15:46 Dose: 94 ml Documented by: [id number] Morphine Sulfate (Morphine Sulfate 10 Mg/Ml Carp/Vial) 6 mg IV NOW STA Stop: 03/28/21 13:56 Last Admin: 03/28/21 14:14 Dose: 6 mg Documented by: [id number] Morphine Sulfate (Morphine Sulfate 10 Mg/Ml Carp/Vial) 6 mg IV NOW STA Stop: 03/28/21 16:23 Last Admin: 03/28/21 16:31 Dose: 6 mg Documented by: [id number] Ondansetron HCl (Ondansetron Inj 2 Mg/Ml 2 Ml Vial) 4 mg IV NOW STA Stop: 03/28/21 13:56 Last Admin: 03/28/21 14:14 Dose: 4 mg Documented by: [id number] Ondansetron HCl (Ondansetron Inj 2 Mg/Ml 2 Ml Vial) 4 mg IV NOW STA Stop: 03/28/21 17:29 Last Admin: 03/28/21 17:46 Dose: 4 mg Documented by: [id number] ECG Additional Comments: Pending- On admission to floor Code Status & VTE Plan Code Status CODE: FULL VTE: SCD's, Heparin 5000 units sub q q8 hours Supervising Physician Co-Signing Physician Notes Patient seen and examined at bedside. Obtained history and physical examination during face to face encounter with patient. I reviewed above note and agree with it. Discussed plan with MADELINE Robles. I answered all of the patients questions. RUQ Pain likely appears musculoskeletal in nature. will monitor. will consult GI PG Care Time/CCT Total # of Minutes Spent Total Time Spent with Patient: Total time spent is greater than 50% in coordination of care (as documented) at patient's floor/unit and/or counseling patient: Coding Level of Care Code INT OBSERVATION CARE 70M LVL 3 Diagnoses S/P laparoscopic cholecystectomy Z90.49 Right upper quadrant abdominal pain R10.11 Acute hypokalemia E87.6 Hypertension I10 Hypertension type: essential hypertension Migraine without aura, not intractable, without status migrainosus G43.009 Esophageal reflux K21.9 Esophagitis presence: without esophagitis Fatty liver K76.0 (1) Esophageal reflux Esophagitis presence: without esophagitis Qualified Code(s): K21.9 - Gastro- esophageal reflux disease without esophagitis (2) Hypertension Hypertension type: essential hypertension Qualified Code(s): I10 - Essential (primary) hypertension
[2021-03-28] MEDS ORDERED: POTASSIUM CHLORIDE CRTAB 20 MEQ TABCR PO STA (19:22)
[2021-03-28] MEDS ORDERED: PROMETHAZINE HCL 25 MG TAB PO PRN (20:55)
[2021-03-28] MEDS ORDERED: NABUMETONE 500 MG TABLET PO PRN (20:55)
[2021-03-28] MEDS ORDERED: BUTALBITAL/ACETAMIN/CAFFEINE TAB PO PRN (20:55)
[2021-03-28] MEDS ORDERED: ALBUTEROL HFA 8 GM INHALER INH PRN (20:55)
[2021-03-28] MEDS ORDERED: LACTATED RINGER'S 1,000 ML IV ONE (20:55)
[2021-03-28] MEDS ORDERED: DOXEPIN HCL 50 MG CAPSULE PO SCH ×2 (21:00)
[2021-03-28] MEDS: ONDANSETRON 4 MG OD TAB PO PRN (21:27)
[2021-03-28] MEDS: LIDOCAINE 5% 1 PATCH TD SCH (22:39)
[2021-03-28] MEDS: LABETALOL HCL 100 MG TAB PO SCH (22:40)
[2021-03-28] MEDS: HEPARIN SOD 5,000 UNIT/0.5 ML VIAL SQ SCH (22:41)
[2021-03-28] MEDS: TOPIRAMATE 100 MG TAB PO SCH (22:41)
[2021-03-28 23:06] LABS: Pregnancy Test, Urine Negative (Negative)
[2021-03-29] MEDS ORDERED: ACETAMINOPHEN 325 MG TAB PO PRN (02:28)
[2021-03-29] MEDS: MoRPHine SULFATE 4 MG/ML 1 ML CARP\\VIAL IV PRN ×3 (02:38→18:23)
[2021-03-29] MEDS: HEPARIN SOD 5,000 UNIT/0.5 ML VIAL SQ SCH ×2 (05:29→13:52)
[2021-03-29] MEDS: KETOROLAC TROMETHAMINE 10 MG TABLET PO PRN ×2 (06:23→13:51)
[2021-03-29] MEDS ORDERED: POTASSIUM CHLORIDE CRTAB 20 MEQ TABCR PO SCH (08:15)
--- NOTE | 2021-03-29 08:17 | Hospitalist Progress Note ---
Date of Service March 29, 2021 Assessment & Plan Admission and Anticipated Discharge Date Admission Date: March 28, 2021 Results & Data Results & Data ([facility]) Vital Signs (Past 12 Hours) Vital Signs Temp Pulse Resp BP BP Pulse Ox 03/29/21 08:01 36.9 C 61 16 122/70 93 03/28/21 22:50 70 16 114/77 97 03/28/21 20:20 36.4 C L 73 18 132/84 97 Laboratory Results 03/28/21 03/28/21 03/28/21 Range/Units Unknown 22:50 16:45 WBC (4.8-10.8) K/uL RBC (4.2-5.4) M/uL Hgb (12.0-16.0) g/dL Hct (37-47) % MCV (80-100) fL MCH (25-34) pg MCHC (32-36) g/dL RDW Std Deviation (36.4-46.3) fL RDW Coeff of Lea (11.5-14.5) % Plt Count (130-400) K/uL MPV (7.4-10.4) fL Immature Gran % (Auto) % Neut % (Auto) % Lymph % (Auto) % [place] % (Auto) % Eos % (Auto) % Baso % (Auto) % Neut # (Auto) (1.4-6.5) K/uL Lymph # (Auto) (1.2-3.4) K/uL [place] # (Auto) (0.11-0.59) K/uL Eos # (Auto) (0-0.5) K/uL Baso # (Auto) (0-0.2) K/uL Immature Gran # (Auto) (0.00-0.02) K/uL Sodium (136-145) mmol/L Potassium (3.5-5.1) mmol/L Chloride (98-107) mmol/L Carbon Dioxide (21-32) mmol/L Anion Gap (3-11) BUN (7-18) mg/dl Creatinine (0.6-1.2) mg/dl Est Cr Clr Drug Dosing ml/min Est GFR ( Amer) ml/min Est GFR (Non-Af Amer) ml/min BUN/Creatinine Ratio (10-20) Glucose (70-99) mg/dl Calcium (8.5-10.1) mg/dl Total Bilirubin (0.2-1) mg/dl AST (15-37) U/L ALT (12-78) U/L Alkaline Phosphatase (45-117) U/L Total Protein (6.4-8.2) gm/dl Albumin (3.4-5.0) gm/dl Globulin (2.5-4.0) gm/dl Albumin/Globulin Ratio (0.9-2) Lipase (73-393) U/L Urine Color Urine Appearance (Clear) Urine pH (4.5-7.5) Ur Specific [place] (1.000-1.030) Urine Protein (Negative) Urine Glucose (UA) (Negative) Urine Ketones (Negative) Urine Blood (Negative) Urine Nitrite (Negative) Urine Bilirubin (Negative) Urine Urobilinogen (Negative) Ur Leukocyte Esterase (Negative) Urine WBC (Auto) (0-5) /hpf Urine RBC (Auto) (0-4) /hpf U Hyaline Cast (Auto) (0-5) /lpf U Epithel Cells (Auto) (0-5) /lpf Urine Bacteria (Auto) (Negative) Urine Test Negative (Negative) POC Ur Test Pending COVID-19 Eval Order SARS-CoV-2 (PCR) NEGATIVE (Negative) 03/28/21 03/28/21 03/28/21 Range/Units 16:45 14:08 14:02 WBC (4.8-10.8) K/uL RBC (4.2-5.4) M/uL Hgb (12.0-16.0) g/dL Hct (37-47) % MCV (80-100) fL MCH (25-34) pg MCHC (32-36) g/dL RDW Std Deviation (36.4-46.3) fL RDW Coeff of Lea (11.5-14.5) % Plt Count (130-400) K/uL MPV (7.4-10.4) fL Immature Gran % (Auto) % Neut % (Auto) % Lymph % (Auto) % [place] % (Auto) % Eos % (Auto) % Baso % (Auto) % Neut # (Auto) (1.4-6.5) K/uL Lymph # (Auto) (1.2-3.4) K/uL [place] # (Auto) (0.11-0.59) K/uL Eos # (Auto) (0-0.5) K/uL Baso # (Auto) (0-0.2) K/uL Immature Gran # (Auto) (0.00-0.02) K/uL Sodium 138 (136-145) mmol/L Potassium 2.8 L (3.5-5.1) mmol/L Chloride 104 (98-107) mmol/L Carbon Dioxide 27 (21-32) mmol/L Anion Gap 7.0 (3-11) BUN 16 (7-18) mg/dl Creatinine 1.12 (0.6-1.2) mg/dl Est Cr Clr Drug Dosing 93.6 ml/min Est GFR ( Amer) 73.2 ml/min Est GFR (Non-Af Amer) 63.1 ml/min BUN/Creatinine Ratio 14.2 (10-20) Glucose 96 (70-99) mg/dl Calcium 8.8 (8.5-10.1) mg/dl Total Bilirubin 0.3 (0.2-1) mg/dl AST 24 (15-37) U/L ALT 36 (12-78) U/L Alkaline Phosphatase 74 (45-117) U/L Total Protein 7.2 (6.4-8.2) gm/dl Albumin 3.6 (3.4-5.0) gm/dl Globulin 3.6 (2.5-4.0) gm/dl Albumin/Globulin Ratio 1.0 (0.9-2) Lipase 124 (73-393) U/L Urine Color Yellow Urine Appearance Cloudy A (Clear) Urine pH 5.0 (4.5-7.5) Ur Specific [place] 1.024 (1.000-1.030) Urine Protein Negative (Negative) Urine Glucose (UA) Negative (Negative) Urine Ketones Negative (Negative) Urine Blood Negative (Negative) Urine Nitrite Negative (Negative) Urine Bilirubin Negative (Negative) Urine Urobilinogen Negative (Negative) Ur Leukocyte Esterase Negative (Negative) Urine WBC (Auto) 5-10 H (0-5) /hpf Urine RBC (Auto) 10-30 H (0-4) /hpf U Hyaline Cast (Auto) 1-5 (0-5) /lpf U Epithel Cells (Auto) >30 H (0-5) /lpf Urine Bacteria (Auto) 1+ H (Negative) Urine Test (Negative) POC Ur Test COVID-19 Eval Order Covid19 at [facility] SARS-CoV-2 (PCR) (Negative) 03/28/21 Range/Units 14:02 WBC 6.35 (4.8-10.8) K/uL RBC 4.50 (4.2-5.4) M/uL Hgb 11.3 L (12.0-16.0) g/dL Hct 35.0 L (37-47) % MCV 77.8 L (80-100) fL MCH 25.1 (25-34) pg MCHC 32.3 (32-36) g/dL RDW Std Deviation 51.7 H (36.4-46.3) fL RDW Coeff of Lea 18.2 H (11.5-14.5) % Plt Count 263 (130-400) K/uL MPV 10.2 (7.4-10.4) fL Immature Gran % (Auto) 0.0 % Neut % (Auto) 61.6 % Lymph % (Auto) 28.2 % [place] % (Auto) 6.1 % Eos % (Auto) 3.8 % Baso % (Auto) 0.3 % Neut # (Auto) 3.91 (1.4-6.5) K/uL Lymph # (Auto) 1.79 (1.2-3.4) K/uL [place] # (Auto) 0.39 (0.11-0.59) K/uL Eos # (Auto) 0.24 (0-0.5) K/uL Baso # (Auto) 0.02 (0-0.2) K/uL Immature Gran # (Auto) 0.00 (0.00-0.02) K/uL Sodium (136-145) mmol/L Potassium (3.5-5.1) mmol/L Chloride (98-107) mmol/L Carbon Dioxide (21-32) mmol/L Anion Gap (3-11) BUN (7-18) mg/dl Creatinine (0.6-1.2) mg/dl Est Cr Clr Drug Dosing ml/min Est GFR ( Amer) ml/min Est GFR (Non-Af Amer) ml/min BUN/Creatinine Ratio (10-20) Glucose (70-99) mg/dl Calcium (8.5-10.1) mg/dl Total Bilirubin (0.2-1) mg/dl AST (15-37) U/L ALT (12-78) U/L Alkaline Phosphatase (45-117) U/L Total Protein (6.4-8.2) gm/dl Albumin (3.4-5.0) gm/dl Globulin (2.5-4.0) gm/dl Albumin/Globulin Ratio (0.9-2) Lipase (73-393) U/L Urine Color Urine Appearance (Clear) Urine pH (4.5-7.5) Ur Specific [place] (1.000-1.030) Urine Protein (Negative) Urine Glucose (UA) (Negative) Urine Ketones (Negative) Urine Blood (Negative) Urine Nitrite (Negative) Urine Bilirubin (Negative) Urine Urobilinogen (Negative) Ur Leukocyte Esterase (Negative) Urine WBC (Auto) (0-5) /hpf Urine RBC (Auto) (0-4) /hpf U Hyaline Cast (Auto) (0-5) /lpf U Epithel Cells (Auto) (0-5) /lpf Urine Bacteria (Auto) (Negative) Urine Test (Negative) POC Ur Test COVID-19 Eval Order SARS-CoV-2 (PCR) (Negative) Medications Administered Current Inpatient Medications Acetaminophen (Acetaminophen 325 Mg Tab) 650 mg PO Q4H PRN PRN Reason: Pain or Fever Stop: 04/28/21 02:27 Acetaminophen/Butalbital/Caffeine (Butalbital/Acetamin/Caffeine Tab) 1 - 2 tab PO BID PRN PRN Reason: HEADACHE PAIN Stop: 04/27/21 20:54 Albuterol (Albuterol Hfa 8 Gm Inhaler) 2 puffs INH Q6H PRN PRN Reason: shortness of breath or wheezin Stop: 04/27/21 20:54 Cholestyramine Resin (Cholestyramine Light 4 Gm Pkt) 4 gm PO DAILY@1000 MEKA Stop: 04/28/21 09:59 Doxepin HCl (Doxepin Hcl 50 Mg Capsule) 50 mg PO QPM MEKA Stop: 04/27/21 20:59 Last Admin: 03/28/21 22:40 Dose: 50 mg Documented by: Doxepin HCl (Doxepin Hcl 50 Mg Capsule) 100 mg PO QPM [facility] Stop: 04/27/21 20:59 Last Admin: 03/28/21 22:40 Dose: 100 mg Documented by: Ferrous Sulfate (Ferrous Sulfate 325 Mg Tab) 325 mg PO DAILY [facility] Stop: 04/28/21 08:59 Heparin Sodium (Porcine) (Heparin Sod 5,000 Unit/0.5 Ml Vial) 5,000 units SQ Q8 MEKA Stop: 04/27/21 21:59 Last Admin: 03/29/21 05:29 Dose: 5,000 units Documented by: Hydrochlorothiazide (Hydrochlorothiazide 25 Mg Tab) 25 mg PO DAILY [facility] Stop: 04/28/21 08:59 Ketorolac Tromethamine (Ketorolac Tromethamine 10 Mg Tablet) 10 mg PO Q6H PRN PRN Reason: moderate pain Stop: 04/03/21 02:27 Last Admin: 03/29/21 06:23 Dose: 10 mg Documented by: Labetalol HCl (Labetalol Hcl 100 Mg Tab) 100 mg PO BID [facility] Stop: 04/27/21 20:59 Last Admin: 03/28/21 22:40 Dose: 100 mg Documented by: Lidocaine (Lidocaine 5% 1 Patch) 1 patch TD QAM [facility] Stop: 04/27/21 20:54 Last Admin: 03/28/21 22:39 Dose: 1 patch Documented by: Miscellaneous (Remove Lidoderm Patch) 1 ea N/A DAILY@2100 [facility] Stop: 04/27/21 20:59 Last Admin: 03/28/21 22:40 Dose: Not Given Documented by: Morphine Sulfate (Morphine Sulfate 4 Mg/Ml 1 Ml Carp\Vial) 4 mg IV Q6H PRN PRN Reason: severe pain Stop: 04/12/21 02:26 Last Admin: 03/29/21 02:38 Dose: 4 mg Documented by: Mupirocin (Mupirocin 2% Oint 22 Gm Tube) 1 appln TOP BID [facility] Stop: 04/28/21 08:59 Nabumetone (Nabumetone 500 Mg Tablet) 500 mg PO BID PRN PRN Reason: Pain Stop: 04/27/21 20:54 Last Admin: 03/28/21 23:01 Dose: 500 mg Documented by: Ondansetron HCl (Ondansetron 4 Mg Od Tab) 4 mg PO Q6H PRN PRN Reason: nausea and vomiting Last Admin: 03/28/21 21:27 Dose: 4 mg Documented by: Pantoprazole Sodium (Pantoprazole 40 Mg Tab) 40 mg PO DAILY [facility]; Protocol Stop: 04/28/21 08:59 Potassium Chloride (Potassium Chloride Crtab 20 Meq Tabcr) 20 meq PO Q2H [facility] Stop: 03/29/21 14:16 Promethazine HCl (Promethazine Hcl 25 Mg Tab) 25 mg PO TID PRN PRN Reason: Nausea Stop: 04/27/21 20:54 Topiramate (Topiramate 100 Mg Tab) 200 mg PO BID [facility] Stop: 04/27/21 20:59 Last Admin: 03/28/21 22:41 Dose: 200 mg Documented by: Verapamil HCl (Verapamil Hcl 240 Mg Tabcr) 240 mg PO QAM [facility] Stop: 04/28/21 08:59
--- NOTE | 2021-03-29 08:40 | Gastrointestinal Consultation ---
Date of Consultation March 29, 2021 Assessment & Plan (1) Right upper quadrant abdominal pain: 35 year old female with constant sharp RUQ pain associated with GERD, nausea, burping since CCY who notes loose stools nonbloody BMs NPO MRCP Start Bentyl 10 mg three times daily Can check stool culture, c.diff Restart Questran 1 packet daily, if loose stools persist can add an additional packet If MRCP negative will plan for OP EGD/EUS Thank you for allowing us to participate in the care of this patient. Please call with any acute changes, questions or concerns. Please see addendum below with additional recommendation from my supervising physician. Supervising Physician Co-Signing Physician Notes Consult for abdominal pain Cholecystectomy in 02/04 Admitted thru the ER- normal lft's and also normal cbc PE - tired appearing female in nad, no respiratory distress, abd obese soft nt nd MRCP pending Agree with further plan of care as above - trial of bentyl. History of Present Illness Reason for Consultation: abdominal pain Requesting Physician: Fermin Attending Physician: Sunny Christensen MD History of Present Illness 35 year old female with history of GERD, migraines, s/p CCY admitted w/ abdominal pain. GI asked to evaluate as she was to be referred as an OP to Dr. Wing for potential EUS/ERCP. Pt was seen, chart reviewed. Notes RUQ pain, similar to her pain before CCY. This is constant. Worse with any PO intake. Severe. Associated with nausea, burping/belching and GERD. No vomiting. Denies dysphagia. Some change in bowel habits - denies black/bloody stools but has had looser, more frequent stools since CCY LFTs WNL Lipiase nonelevated CTAP 2020: No acute process within the abdomen or pelvis.Minimal stranding within the cholecystectomy bed which is within normal limits in the early postoperative setting. No operative bed fluid collection. No biliary ductal dilatation. Hepatic steatosis.. No bowel obstruction. No bowel wall thickening. Normal appendix. Allergies Allergy/AdvReac Type Severity Reaction Status Date / Time pregabalin [From Lyrica] Allergy Intermediate Hives Verified 03/28/21 14:23 codeine AdvReac Intermediate Nausea Verified 03/28/21 14:23 Root Beer Flavor Allergy Severe Severe Uncoded 03/28/21 14:23 oropharyngeal hives Home Medications Medication Instructions Recorded Confirmed Type omeprazole 20 mg PO DAILY 10/14/18 03/28/21 History ferrous sulfate 325 mg (65 mg 325 mg PO DAILY #30 tab 05/10/19 03/28/21 History iron) tablet nabumetone 500 mg tablet 500 mg PO BID PRN #60 tab 05/10/19 03/28/21 History sumatriptan succinate 4 mg/0.5 mL 4 mg SUBCUT ONCE PRN #1 ml 07/26/20 03/28/21 Rx subcutaneous pen injector albuterol sulfate 90 mcg/actuation 2 puff INHALATION Q6H PRN #8.5 g 09/01/20 03/28/21 Rx aerosol inhaler mlkaknsnfm-emtcmezarhgdw-pengmovm 1 - 2 tab PO .COMPLEX PRN 30 Days 09/27/20 03/28/21 Rx 50 mg-325 mg-40 mg tablet #12 tab promethazine 25 mg tablet 25 mg PO TID PRN 30 Days #30 tab 09/27/20 03/28/21 Rx fremanezumab-vfrm 225 mg/1.5 mL 675 mg SQ .COMPLEX 90 Days #4.5 ml 10/08/20 03/28/21 Rx subcutaneous syringe mupirocin 2 % topical ointment 1 applic TOPICAL BID #15 g 10/28/20 03/28/21 Rx labetalol 100 mg tablet 100 mg PO BID #60 tab 12/01/20 03/28/21 Rx Reyvow 100 mg PO DIRECTED PRN 02/01/21 03/28/21 History topiramate 200 mg tablet 200 mg PO BID 30 Days #60 tab 02/07/21 03/28/21 Rx verapamil 240 mg tablet,extended 240 mg PO QAM 30 Days #30 tab 02/07/21 03/28/21 Rx release ondansetron HCl 4 mg tablet 4 mg PO Q6H PRN #20 tab 02/16/21 03/28/21 Rx hydrochlorothiazide 25 mg tablet 25 mg PO DAILY #30 tab 03/21/21 03/28/21 Rx cholestyramine-aspartame 1 ea PO UD 03/28/21 03/28/21 History [Prevalite] doxepin 50 mg PO QPM 03/28/21 03/28/21 History doxepin 100 mg PO QPM 03/28/21 03/28/21 History Patient History Medical History Esophageal reflux Kidney stones Migraine headache Migraine without aura, not intractable, without status migrainosus Nausea Right sided abdominal pain Surgical History History of adenoidectomy History of ankle surgery History of esophagogastroduodenoscopy S/P colonoscopy S/P tonsillectomy S/P tooth extraction Family History Father No family history of bleeding disorder ? of bleeding disorder. Also had to have nose cauterized in the past Mother Asthma Grandfather (Paternal) Hypertension Grandmother (Paternal) Hypertension Breast cancer Paternal great grandmother Heart disease Grandfather (Paternal) Stroke Paternal great grandfather Family/Other Heart disease Paternal niece Other No family history of adverse response to anesthesia No pertinent family history Social History Smoking Status: Never smoker Second Hand Exposure: Yes; Hx Alcohol Use: Yes Alcohol type: wine Alcohol Intake Frequency: Monthly or Less Hx Substance Use: No Preferred Language: Turkmen Communication Ability: Effective Forder Operator Required: No Beliefs That Will Affect Care: None marital status: Single Current Living Situation: Parent current occupational status: employed 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 [employer] Other Information That Helps Us Care for You: No Feels Safe at Home: Yes Safety Concerns: Feels Safe At This Time Assistive Devices: Glasses Review of Systems Review of Systems: All systems reviewed & are unremarkable except as noted in HPI & below Physical Exam Constitutional: WD/WN, vitals as above cooperative and comfortable; no acute distress and not ill appearing Neck: trachea midline, no thyromegaly Respiratory: normal respiratory effort, lungs clear to auscultation Cardiovascular: RRR, no murmur, no edema Gastrointestinal (Abdomen): normal bowel sounds, soft, nontender, no hepatosplenomegaly Skin: no rashes, warm and dry Results & Data ([facility]) Vital Signs (Past 12 Hours) Vital Signs Temp Pulse Resp BP BP Pulse Ox 03/29/21 08:01 36.9 C 61 16 122/70 93 03/28/21 22:50 70 16 114/77 97 Laboratory Results 03/28/21 03/28/21 03/28/21 Range/Units Unknown 22:50 16:45 WBC (4.8-10.8) K/uL RBC (4.2-5.4) M/uL Hgb (12.0-16.0) g/dL Hct (37-47) % MCV (80-100) fL MCH (25-34) pg MCHC (32-36) g/dL RDW Std Deviation (36.4-46.3) fL RDW Coeff of Lea (11.5-14.5) % Plt Count (130-400) K/uL MPV (7.4-10.4) fL Immature Gran % (Auto) % Neut % (Auto) % Lymph % (Auto) % Davidson % (Auto) % Eos % (Auto) % Baso % (Auto) % Neut # (Auto) (1.4-6.5) K/uL Lymph # (Auto) (1.2-3.4) K/uL Davidson # (Auto) (0.11-0.59) K/uL Eos # (Auto) (0-0.5) K/uL Baso # (Auto) (0-0.2) K/uL Immature Gran # (Auto) (0.00-0.02) K/uL Sodium (136-145) mmol/L Potassium (3.5-5.1) mmol/L Chloride (98-107) mmol/L Carbon Dioxide (21-32) mmol/L Anion Gap (3-11) BUN (7-18) mg/dl Creatinine (0.6-1.2) mg/dl Est Cr Clr Drug Dosing ml/min Est GFR ( Amer) ml/min Est GFR (Non-Af Amer) ml/min BUN/Creatinine Ratio (10-20) Glucose (70-99) mg/dl Calcium (8.5-10.1) mg/dl Total Bilirubin (0.2-1) mg/dl AST (15-37) U/L ALT (12-78) U/L Alkaline Phosphatase (45-117) U/L Total Protein (6.4-8.2) gm/dl Albumin (3.4-5.0) gm/dl Globulin (2.5-4.0) gm/dl Albumin/Globulin Ratio (0.9-2) Lipase (73-393) U/L Urine Color Urine Appearance (Clear) Urine pH (4.5-7.5) Ur Specific Cowgill (1.000-1.030) Urine Protein (Negative) Urine Glucose (UA) (Negative) Urine Ketones (Negative) Urine Blood (Negative) Urine Nitrite (Negative) Urine Bilirubin (Negative) Urine Urobilinogen (Negative) Ur Leukocyte Esterase (Negative) Urine WBC (Auto) (0-5) /hpf Urine RBC (Auto) (0-4) /hpf U Hyaline Cast (Auto) (0-5) /lpf U Epithel Cells (Auto) (0-5) /lpf Urine Bacteria (Auto) (Negative) Urine Test Negative (Negative) POC Ur Test Pending COVID-19 Eval Order SARS-CoV-2 (PCR) NEGATIVE (Negative) 03/28/21 03/28/21 03/28/21 Range/Units 16:45 14:08 14:02 WBC (4.8-10.8) K/uL RBC (4.2-5.4) M/uL Hgb (12.0-16.0) g/dL Hct (37-47) % MCV (80-100) fL MCH (25-34) pg MCHC (32-36) g/dL RDW Std Deviation (36.4-46.3) fL RDW Coeff of Lea (11.5-14.5) % Plt Count (130-400) K/uL MPV (7.4-10.4) fL Immature Gran % (Auto) % Neut % (Auto) % Lymph % (Auto) % Davidson % (Auto) % Eos % (Auto) % Baso % (Auto) % Neut # (Auto) (1.4-6.5) K/uL Lymph # (Auto) (1.2-3.4) K/uL Davidson # (Auto) (0.11-0.59) K/uL Eos # (Auto) (0-0.5) K/uL Baso # (Auto) (0-0.2) K/uL Immature Gran # (Auto) (0.00-0.02) K/uL Sodium 138 (136-145) mmol/L Potassium 2.8 L (3.5-5.1) mmol/L Chloride 104 (98-107) mmol/L Carbon Dioxide 27 (21-32) mmol/L Anion Gap 7.0 (3-11) BUN 16 (7-18) mg/dl Creatinine 1.12 (0.6-1.2) mg/dl Est Cr Clr Drug Dosing 93.6 ml/min Est GFR ( Amer) 73.2 ml/min Est GFR (Non-Af Amer) 63.1 ml/min BUN/Creatinine Ratio 14.2 (10-20) Glucose 96 (70-99) mg/dl Calcium 8.8 (8.5-10.1) mg/dl Total Bilirubin 0.3 (0.2-1) mg/dl AST 24 (15-37) U/L ALT 36 (12-78) U/L Alkaline Phosphatase 74 (45-117) U/L Total Protein 7.2 (6.4-8.2) gm/dl Albumin 3.6 (3.4-5.0) gm/dl Globulin 3.6 (2.5-4.0) gm/dl Albumin/Globulin Ratio 1.0 (0.9-2) Lipase 124 (73-393) U/L Urine Color Yellow Urine Appearance Cloudy A (Clear) Urine pH 5.0 (4.5-7.5) Ur Specific Cowgill 1.024 (1.000-1.030) Urine Protein Negative (Negative) Urine Glucose (UA) Negative (Negative) Urine Ketones Negative (Negative) Urine Blood Negative (Negative) Urine Nitrite Negative (Negative) Urine Bilirubin Negative (Negative) Urine Urobilinogen Negative (Negative) Ur Leukocyte Esterase Negative (Negative) Urine WBC (Auto) 5-10 H (0-5) /hpf Urine RBC (Auto) 10-30 H (0-4) /hpf U Hyaline Cast (Auto) 1-5 (0-5) /lpf U Epithel Cells (Auto) >30 H (0-5) /lpf Urine Bacteria (Auto) 1+ H (Negative) Urine Test (Negative) POC Ur Test COVID-19 Eval Order Covid19 at [facility] SARS-CoV-2 (PCR) (Negative) 03/28/21 Range/Units 14:02 WBC 6.35 (4.8-10.8) K/uL RBC 4.50 (4.2-5.4) M/uL Hgb 11.3 L (12.0-16.0) g/dL Hct 35.0 L (37-47) % MCV 77.8 L (80-100) fL MCH 25.1 (25-34) pg MCHC 32.3 (32-36) g/dL RDW Std Deviation 51.7 H (36.4-46.3) fL RDW Coeff of Lea 18.2 H (11.5-14.5) % Plt Count 263 (130-400) K/uL MPV 10.2 (7.4-10.4) fL Immature Gran % (Auto) 0.0 % Neut % (Auto) 61.6 % Lymph % (Auto) 28.2 % Davidson % (Auto) 6.1 % Eos % (Auto) 3.8 % Baso % (Auto) 0.3 % Neut # (Auto) 3.91 (1.4-6.5) K/uL Lymph # (Auto) 1.79 (1.2-3.4) K/uL Davidson # (Auto) 0.39 (0.11-0.59) K/uL Eos # (Auto) 0.24 (0-0.5) K/uL Baso # (Auto) 0.02 (0-0.2) K/uL Immature Gran # (Auto) 0.00 (0.00-0.02) K/uL Sodium (136-145) mmol/L Potassium (3.5-5.1) mmol/L Chloride (98-107) mmol/L Carbon Dioxide (21-32) mmol/L Anion Gap (3-11) BUN (7-18) mg/dl Creatinine (0.6-1.2) mg/dl Est Cr Clr Drug Dosing ml/min Est GFR ( Amer) ml/min Est GFR (Non-Af Amer) ml/min BUN/Creatinine Ratio (10-20) Glucose (70-99) mg/dl Calcium (8.5-10.1) mg/dl Total Bilirubin (0.2-1) mg/dl AST (15-37) U/L ALT (12-78) U/L Alkaline Phosphatase (45-117) U/L Total Protein (6.4-8.2) gm/dl Albumin (3.4-5.0) gm/dl Globulin (2.5-4.0) gm/dl Albumin/Globulin Ratio (0.9-2) Lipase (73-393) U/L Urine Color Urine Appearance (Clear) Urine pH (4.5-7.5) Ur Specific Cowgill (1.000-1.030) Urine Protein (Negative) Urine Glucose (UA) (Negative) Urine Ketones (Negative) Urine Blood (Negative) Urine Nitrite (Negative) Urine Bilirubin (Negative) Urine Urobilinogen (Negative) Ur Leukocyte Esterase (Negative) Urine WBC (Auto) (0-5) /hpf Urine RBC (Auto) (0-4) /hpf U Hyaline Cast (Auto) (0-5) /lpf U Epithel Cells (Auto) (0-5) /lpf Urine Bacteria (Auto) (Negative) Urine Test (Negative) POC Ur Test COVID-19 Eval Order SARS-CoV-2 (PCR) (Negative)
[2021-03-29] MEDS ORDERED: hydroCHLOROthiazide 25 MG TAB PO SCH (09:00)
[2021-03-29] MEDS ORDERED: VERAPAMIL HCL 240 MG TABCR PO SCH (09:00)
[2021-03-29] MEDS ORDERED: PANTOprazole 40 MG TAB PO SCH (09:00)
[2021-03-29] MEDS ORDERED: MUPIROCIN 2% OINT 22 GM TUBE TOP SCH (09:00)
[2021-03-29] MEDS ORDERED: FERROUS SULFATE 325 MG TAB PO SCH (09:00)
[2021-03-29] MEDS: DICYCLOMINE HCL 10 MG CAP PO SCH ×2 (09:03→13:50)
[2021-03-29] MEDS: TOPIRAMATE 100 MG TAB PO SCH (09:04)
[2021-03-29] MEDS: LIDOCAINE 5% 1 PATCH TD SCH (09:10)
[2021-03-29] MEDS: LABETALOL HCL 100 MG TAB PO SCH (09:19)
[2021-03-29 09:28] LABS: Basophils # (auto) 0.02 K/uL (0-0.2); Basophils % (auto) 0.4 %; Eosinophils # (auto) 0.19 K/uL (0-0.5); Eosinophils % (auto) 3.9 %; Hematocrit (blood only) 33.1 % (37-47); Hemoglobin 10.3 g/dL (12.0-16.0); Immature Granulocytes # (auto) 0.01 K/uL (0.00-0.02); Immature Granulocytes % (auto) 0.2 %; Lymphocytes % (auto) 37.3 %; Mean Corpuscular Hemoglobin 24.9 pg (25-34); Mean Corpuscular Hgb Conc 31.1 g/dL (32-36); Mean Corpuscular Volume 80.1 fL (80-100); Mean Platelet Volume 10.2 fL (7.4-10.4); Monocytes % (auto) 6.2 %; Platelet Count 253 K/uL (130-400); RDW Coefficient of Variation 18.2 % (11.5-14.5); RDW Standard Deviation 53.7 fL (36.4-46.3); Red Blood Count 4.13 M/uL (4.2-5.4); White Blood Count 4.82 K/uL (4.8-10.8)
[2021-03-29 09:54] LABS: BUN Creatinine Ratio 13.7 (10-20); Calcium 8.2 mg/dl (8.5-10.1); Creatinine Clr Calc Pharmacy 102.3 ml/min; Est GFR (Non-African American) 70.7 ml/min; Potassium 3.2 mmol/L (3.5-5.1)
[2021-03-29] MEDS ORDERED: CHOLESTYRAMINE LIGHT 4 GM PKT PO SCH (10:00)
--- NOTE | 2021-03-29 10:14 | Magnetic Resonance Report ---
MRCP CLINICAL HISTORY: Right upper quadrant pain status post cholecystectomy. TECHNIQUE: Utilizing a 1.5 Bell magnet and dedicated coil, multiplanar, multiecho imaging of the upp er abdomen was performed utilizing heavily T2 weighted pulsing sequences without IV contrast. COMPARISON STUDY: Right upper quadrant ultrasound February 07, 2021. CT of the abdomen and pelvis March. FINDINGS: There is no intra or extrahepatic biliary ductal dilatation status post cholecystectomy. Th e common bile duct measures 4 mm in caliber. No common bile duct calculi are identified. There is no fluid collection within the cholecystectomy bed. There is no pancreatic ductal dilatation. There is s uspected pancreas divisum. No peripancreatic infiltration or fluid is noted. No hepatic lesions are i dentified on this unenhanced exam. Hepatic steatosis is better depicted on CT of March 28, 2021. Mild hepatosplenomegaly. Unenhanced images of the adrenal glands and kidneys are normal. Caliber and wall thickness of visualized small and large bowel are normal. IMPRESSION: 1. No biliary ductal dilatation status post cholecystectomy. No common bile duct calculi. 2. No fluid collection within the cholecystectomy bed. 3. Hepatic steatosis. Mild hepatosplenomegaly. ACT 112: Negative or not required by law. Electronically signed by: Matthew Alvarez M.D. 03/29/2021 10:13 AM
[2021-03-29] MEDS: ONDANSETRON 4 MG OD TAB PO PRN (12:06)
[2021-03-29] MEDS: POTASSIUM CHLORIDE CRTAB 20 MEQ TABCR PO SCH ×3 (13:51→18:23)
--- NOTE | 2021-03-29 17:52 | Discharge Summary ---
Date of Service March 29, 2021 Admission HPI Per Admitting Provider 35 YOF with past medical history of: cholecystectomy in January 2021, intractable migraines, obesity, depression, HTN, GERD, and asthma. Patient came to the [facility] today from the referral of gastroenterology Dr. Wing for continued pain and diarrhea following cholecystectomy. The patient was referred to gastroenterology from general surgery Dr. Campos who has been following the patient in his office following her bhavin in January. The patient continues to experience right upper quadrant pain. The pain is located under her right breast and will run along her side and radiate to her lower abdomen on the medial posterior side. This pain gets worse with activity or movement and has been somewhat manageable with Tylenol/Motrin and whatever Percocet she had left over from surgery. She feels as the pain never goes away and will even hurt her when she rolls over in the middle of the night. She may feel a "twinge" of pain when eating, but for the most part this is not associated with her intake of food or water. This pain is associated with nausea because it hurts and the worst it gets is a 10 and the best it gets is a 4/10. The patient is also still experiencing the diarrhea she had prior to surgery without improvement. She reports that about 15-30 minutes after eating she has to go to the bathroom. She reports that she modified her diet to mostly fruits and vegetables with no change. Her stools are mostly liquid with stools floating on top of the water, no blood, no mucous noted. She does not endorse undigested material in the stools. As above the patient was to be referred to GI for possible evaluation and intervention into her abdominal pain she thought there may be mention of ultrasound or imaging. The patient had a CT scan performed of her abdomen in the [facility] with no acute or infectious process noted. She will be observed overnight, continued with IV hydration and pain control. GI will be consulted. Principal Diagnosis Right upper quadrant pain musculoskeletal versus secondary to recent cholecystectomy Discharge Exam General: Lying in bed in no acute distress HEENT: Normocephalic atraumatic Cardiac: Regular rate and rhythm I did not appreciate significant murmurs rubs or gallops, normal S1, normal S2, negative pedal edema, negative calf tenderness Respiratory: Clear to auscultation bilaterally with symmetrical chest expansion I did not appreciate a significant wheezes, rales, rhonchi GI: Tender to palpation the right upper quadrant, wrapping around to the back, appears to be more sensitive over the intercostal muscles, negative Sanchez sign, negative CVA tenderness, negative Alston Tafoya sign MSK: Moves all extremities Neuro: Alert and oriented x4 Psych: Calm and cooperative with interview Discharge Data Allergies Allergy/AdvReac Type Severity Reaction Status Date / Time pregabalin [From Lyrica] Allergy Intermediate Hives Verified 03/28/21 14:23 codeine AdvReac Intermediate Nausea Verified 03/28/21 14:23 Root Beer Flavor Allergy Severe Severe Uncoded 03/28/21 14:23 oropharyngeal hives Consultations 03/28/21 20:55 Consult Gastroenterology Routine Ordered Studies 03/28/21 13:55 CT abd pelvis IV con only Stat 03/29/21 08:41 MR MRCP Routine Hospital Course (1) Acute hypokalemia: Right upper quadrant abdominal pain thought to be secondary to recent laparoscopic cholecystectomy versus musculoskeletal pain. Patient presented status post extensive outpatient work-up for right upper quadrant pain, stating it was at the insistence of Dr. Wing. CT abdomen pelvis obtained in the ER was negative for any acute pathological postoperative changes, with the exception of hypokalemia as described below the patient's labs were grossly normal. Gastroenterology was consulted recommending MRCP. MRCP was negative for pathology, GI recommended starting PPI and Bentyl with outpatient follow-up. Suspect the patient's pain is likely musculoskeletal in nature recommending outpatient follow-up with her PCP Dr. Diaz Acute hypokalemia: On presentation patient potassium was 2.8, repleted to 3.2 overnight, provided a total of 60 M EQ's on the day of discharge. Recommending outpatient BMP in 3 days. -Follow-up BMP with outpatient provider Hypertension: Continued labatelol, HCTZ, Verapmil Migraine without aura, not intractable, without status migrainosus: Patient on multiple abortive and prophylactic medications - Continued with above multimodal - Continued Topamax - Continued Nembutal - Continued mqaurkagzoj-gjpukwqzkfqjk-uwlheun Esophageal reflux: Continued omeprazole, continued zofran Fatty liver Likely related to obesity, patient does drink social ETOH by report - patient may benefit from further risk reduction of her obesity with referral to obesity medicine (2) Fatty liver: (3) Right upper quadrant abdominal pain: (4) S/P laparoscopic cholecystectomy: (5) Intractable right upper quadrant abdominal pain: Total Time Total Time Spent Total Time Spent (In Minutes): 63 Discharge Plan Discharge Items Patient Disposition: Home - Self-Care Reason For Visit: RIGHT SIDED ABDOMINAL PAIN Discharge Diagnosis: Right upper quadrant pain musculoskeletal versus secondary to recent cholecystectomy Activity: Resume your previous activity Non-emergency contact: Primary Care Provider and Line Welder Call non-emergency contact if: you have any medication questions and your temperature is above 101.5 Follow-up/Referrals: Grayson Diaz III, MD [Primary Care Provider] - Diet: Low Fat Ambulatory Orders: Basic Metabolic Panel (Routine) Timeframe: 3 Days Location: Determined by Patient Ordered By: Garth Appiah Attending Provider Instructions: Care instructions: You were admitted to [facility] for treatment of right upper quadrant pain. You have been extensively worked up as an outpatient for right upper quadrant pain thought to be secondary to your recent surgery. In the hospital and extensive evaluation was performed, your laboratory values were monitored and remained within normal limits. On presentation you had low potassium, this was repleted while you were hospitalized. Additionally gastroenterology was consulted and MRCP was performed, the results of this testing were within normal limits. They recommended that you be discharged on a medication called Bentyl, a proton pump inhibitor and have scheduled outpatient follow-up. We also discussed a pain regimen until you are able to follow-up with your primary care provider Dr. Diaz. As mentioned prior to discharge we suspect the majority of your symptoms are unrelated to prior surgery and are related to a musculoskeletal problem. We recommend you follow-up with Dr. Diaz as soon as possible to begin working this up. Pain regimen Aleve-1 pill in the morning and 1 pill in the evening Tylenol1 g every 8 hours not to exceed more than 3/day Oxycodone 5 mg as needed for breakthrough pain GI regimen Bentyl 3 times daily Omeprazole daily Low-fat diet The above medications have been called into [facility] Additionally we have ordered a BMP to be completed at the end of the week, we request that you obtain this lab work prior to your follow-up with Dr. Diaz A discharge summary will be sent to your primary care physician to ensure continuity of care. Please bring this discharge summary with you to your next office appointment so that your provider can review it at that time. Follow-up appointments: - Keep all your follow-up appointments as already scheduled. If you cannot make an appointment, notify your provider. - Please call to request a follow-up appointment with your primary care physician within one week of discharge. Please let us know if you are unable to obtain an appointment Follow-up labs: - Please go to a lab nearest you and obtain the requested lab work. Please have this completed at least 3 hours before your doctor's appointment (or the day before your appointment if possible). Medications: - Your medication list has been reviewed and reconciled upon discharge to ensure accuracy and continuity of care. - You are provided with a list of all your current medications at this time. Please review this list closely and make note of any changes. - Please take all of your medications exactly as prescribed. - Tell your primary care provider if you cannot afford your medications. - Call your primary care provider if you are having any side effects or any other problems. - Call your primary care provider before taking any over the counter medications or supplements, including herbals and vitamins, because some of these may interact with your current medications and/or make your symptoms worse. Symptoms: Please call your primary care provider for symptoms including, but not limited to: fevers (temperatures greater than 100.4), chills, intractable nausea or vomiting, diarrhea, rash, shortness of breath, bleeding, pain, or if you experience any worsening of the symptoms that brought you to the hospital. For EMERGENCY and VERY SERIOUS health-related issues, such as chest pain, shortness of breath, or sudden onset of the symptoms that brought you to the hospital, you may need to call 911 or go directly to the Emergency Room It has been our privilege to take care of you during your hospital stay. And Above All Else Feel Better! Best Wishes, Garth Pagan MD PGY2 Resident, Family & Community Medicine [facility] Residency at [facility] [address], [address] : [address] [place] [address], [place] [address] Pending Studies at Discharge: No Stand-Alone Forms: My [facility], Smoking Cessation Medications and DC Order Prescriptions: New dicyclomine 10 mg Capsule 10 mg PO TID 30 Days Qty: 90 RF: 0 Continued sumatriptan succinate [Imitrex STATdose Pen] 4 mg/0.5 mL pen injector 4 mg subcut ONCE PRN (Reason: migraine headache) Qty: 1 RF: 1 promethazine 25 mg tablet 25 mg PO TID PRN (Reason: Nausea) 30 Days Qty: 30 RF: 1 hgwkqxyapv-kswtmfubltagi-geqk 50-325-40 mg tablet 1 - 2 tab PO .COMPLEX PRN (Reason: pain) 30 Days Qty: 12 RF: 0 Ajovy Syringe 225 mg/1.5 mL syringe 675 mg SQ .COMPLEX 90 Days Qty: 4.5 RF: 1 topiramate [Topamax] 200 mg tablet 200 mg PO BID 30 Days Qty: 60 RF: 1 verapamil 240 mg tablet extended release 240 mg PO QAM 30 Days Qty: 30 RF: 1 hydrochlorothiazide 25 mg tablet 25 mg PO DAILY Qty: 30 RF: 5 albuterol sulfate [Ventolin HFA] 90 mcg/actuation HFA aerosol inhaler 2 puff inhalation Q6H PRN (Reason: shortness of breath or wheezing) Qty: 8.5 RF: 1 labetalol 100 mg tablet 100 mg PO BID Qty: 60 RF: 5 ondansetron HCl [Zofran] 4 mg tablet 4 mg PO Q6H PRN (Reason: nausea and vomiting) Qty: 20 RF: 0 nabumetone 500 mg tablet 500 mg PO BID PRN (Reason: Pain) Qty: 60 RF: 0 ferrous sulfate 325 mg (65 mg iron) tablet 325 mg PO DAILY Qty: 30 RF: 0 mupirocin 2 % ointment 1 applic topical BID Qty: 15 RF: 2 omeprazole 20 mg Tablet,Delayed Release (Dr/Ec) 20 mg PO DAILY RF: 0 Reyvow 100 mg tablet 100 mg PO DIRECTED PRN (Reason: Migraine Headache) RF: 0 Prevalite 4 gram powder in packet 1 ea PO UD RF: 0 doxepin 50 mg capsule 50 mg PO QPM RF: 0 doxepin 100 mg capsule 100 mg PO QPM RF: 0 Discharge Orders: Discharge Order (Routine); Ordered 03/29/21 Ordered By: Garth Pagan Admission Data Admit Date/Time: 03/28/21 19:01 Attending Provider: Sunny Christensen Admit Provider: Tre Robles Primary Care Provider: Grayson Diaz III Other Providers: Curt Vera ; Kasia Edouard ; Sreedhar Weinstein ; Yesenia Millan ; Irwin Haney ; James Wing ; Maggie Myles ; Kristopher Benito ; Yoli Castro ; Kia Dominguez ; Angela Mao ; Paulette [place] ; Naresh Ramos Supervising Physician Co-Signing Physician Notes Attending attestation Pt seen and examined in concert with Dr. Pagan. In agreement with the documented findings as noted in the resident documentation with any exceptions or additions as noted here. Patient reports pain stable from chronic. On review: sharp, aching pain from the right midback wrapping along the rib line to the RUQ abdomen which is exacerbated by movements and direct pressure, improved positionally and with toradol, but hasn't resolved. Onset 2 wks following cholecystectomy with gradual onset most noted anteriorly and progressing posteriorly. No apparent skin changes or other rashes nor recent illness otherwise. Retaining subjective amb ulatory, bowel/bladder continence and sensory functions with maternal h/o multiple back surgeries. Minimal relief from topical lidocaine. Previously tolerated gabapentin for migraine headaches. On examination, S1/S2 nl RRR no MCG. CTAB. Abd NT/ND BS+ve. CNII-XII grossly intact. B/L LE str and sensation grossly intact with preserved ROM. Nl skin examination of affected area. Affect is congruent and without SI/HI, but intensely frustrated re: persistent pain without apparent cause. Right flank/abd pain - unknown etiology - her examination is most consistent with an MSK pathology such as intercostal inflammation or trauma, though a neuropathic type complaint (?postherpetic neuralgia vs. spinal nerve compression) is also a consideration. Her GI evaluation from [facility] and Dr. Campos of gen surg is reassuring following surgery. Extensive counseling re: normalization of frustration w/ this evaluation, need for broad primary view, consideration of chronic pain management with gabapentin. Home pain regimen as noted and oxy for breakthrough (short course to PCP f/u). Encourage activity and consider PT. Else see resident documentation as noted. Total attending time spent on this case on the day of discharge: 40 minutes. Resident Activity Tracking Resident Involvement: Resident Care Provided Care Provided: Adult [facility]
--- NOTE | 2021-03-29 18:25 | Electrocardiogram Report ---
Test Reason : Blood Pressure : / mmHG Vent. Rate : 062 BPM Atrial Rate : 062 BPM P-R Int : 188 ms QRS Dur : 096 ms QT Int : 476 ms P-R-T Axes : 038 024 -09 degrees QTc Int : 483 ms Normal sinus rhythm Prolonged QT Abnormal ECG When compared with ECG of 14-FEB-2012 15:11, T wave inversion now evident in Anterolateral leads Confirmed by Jeremy Wheatley ([id number]) on 03/29/2021 6:25:23 PM Referred By: REFERRED SELF Confirmed By:Colt Wheatley
== END 2021-03-29 18:47 | disposition home or self-care (01) | DRG 392 ==
LOC: 3N 10:56 → ED 10:56 → OBSVTOIN 19:01 → SUATTDRO 19:01 → 3N 22:21